=== PATIENT | female | born 1935 | race Caucasian/White ===

== ENCOUNTER → 2019-09-19 10:40 | Outpatient (CLI) | payer MEDICARE, MEDICAID, SELFPAY ==
[2019-09-19 10:56] LABS: Add Manual Diff / Slide Review NO; Basophils Absolute Auto 100 /uL (0-100); Basophils Percent Auto 1.3 % (0-2); Eosinophils Absolute Auto 200 /uL (0-450); Eosinophils Percent Auto 2.9 % (2-4); Hematocrit 38.6 % (36-46); Hemoglobin 12.7 g/dL (12.0-16.0); Lymphocytes Absolute Auto 1400 /uL (1100-4500); Lymphocytes Percent Auto 18.6 % (25-40); Mean Corpuscular Hemoglobin 24.3 PG (26-34); Mean Corpuscular Volume 73.7 fL (80-100); Monocytes Absolute Auto 500 /uL (0-900); Monocytes Percent Auto 6.6 % (3-14); Neutrophils Absolute Auto 5300 /uL (1500-7000); Neutrophils Percent Auto 70.6 % (50-75); Platelet Count 251 X10^3/uL (150-400); Red Blood Cell Count 5.23 X10^6/uL (4.0-5.2); Red Cell Distribution Width 15.6 % (11.6-14.8); White Blood Cell Count 7.6 X10^3/uL (4.5-11.0)
[2019-09-19 11:19] LABS: Alanine Aminotransferase 39 IU/L (<35); Albumin 4.8 g/dL (3.5-5.0); Albumin Globulin Ratio 1.7 (1.0-2.8); Alkaline Phosphatase 89 U/L (38-126); Aspartate Aminotransferase 34 IU/L (14-36); Bilirubin Total 0.3 mg/dL (0.2-1.3); Blood Urea Nitrogen 16 mg/dL (7-17); Calcium 9.8 mg/dL (8.4-10.2); Carbon Dioxide 30 mmol/L (22-32); Chloride 99 mmol/L (98-107); Estimated Glomerular Filt Rate > 60.0 mL/min (>60); Globulin 2.8 g/dL (1.7-4.1); Glucose 105 mg/dL (80-110); HEMOLYSIS < 15 (0-50); Magnesium 1.8 mg/dL (1.6-2.3); Potassium 4.8 mmol/L (3.4-5.1); Sodium 139 mmol/L (137-145); Total Protein 7.6 g/dL (6.3-8.2)
[2019-09-19 11:35] LABS: Free T4, Direct Thyroxine 0.78 ng/dL (0.78-2.19)
[2019-09-19 11:49] LABS: Thyroid Stimulating Hormone 1.38 uIU/mL (0.47-4.68)
== END ==
PROVIDERS: Nurse Practitioner; PCP Physician Assistant; Visit Provider Physician Assistant
DX: R53.83 Other fatigue (principal); Z86.2 Personal history of diseases of the blood and blood-forming organs and certain disorders involving the immune mechanism; Z87.19 Personal history of other diseases of the digestive system; R19.7 Diarrhea, unspecified
CPT/HCPCS: 36415; 80053; 83735; 84439; 84443; 84481; 85025

== ENCOUNTER → 2019-10-17 12:25 | Outpatient (CLI) | payer MEDICARE, MEDICAID, SELFPAY ==
--- NOTE | 2019-10-17 12:27 | DI.US.S_ITS ---
PROCEDURE: US SOFT TISSUE HEAD AND NECK INDICATIONS: EVALUATE MASS RIGHT NECK TECHNIQUE: Real-time scanning was performed of the neck region of interest, with image documentation. COMPARISON: None. FINDINGS: There is a masslike structure replacing the right thyroid lobe measuring up to 3.9 x 4.2 x 6.3 cm, and this may represent diffuse thyroiditis with enlarging the gland or possibly a large thyroid nodule. On the left no nodule is seen in the left gland measures 1.3 x 1.0 x 4.7 cm. IMPRESSION: Large abnormal nodular masslike structure involving the right thyroid lobe measuring up to 3.9 x 4.2 x 6.[address] scanning is recommended for further characterization. Given this abnormality ENT consultation also may be warranted after CT scanning has been performed. Dictated by: Martin Chappell M.D. on 10/17/2019 at 15:29 Approved by: Martin Chappell M.D. on 10/17/2019 at 15:33
== END ==
PROVIDERS: PCP Nurse Practitioner; Referring Provider Nurse Practitioner; Visit Provider Nurse Practitioner
DX: R22.1 Localized swelling, mass and lump, neck (principal); E07.9 Disorder of thyroid, unspecified
CPT/HCPCS: 76536

== ENCOUNTER → 2019-11-06 10:16 | Outpatient (CLI) | payer MEDICARE, MEDICAID, SELFPAY ==
[2019-11-06 10:44] LABS: BUN Creatinine Ratio 20.2 (6-22); Blood Urea Nitrogen 17 mg/dL (7-17); Estimated Glomerular Filt Rate > 60.0 mL/min (>60)
--- NOTE | 2019-11-06 14:09 | DI.CT.S_ITS ---
PROCEDURE: CT SOFT TISSUE NECK W CON INDICATIONS: Abnormal thyroid ultrasound TECHNIQUE: After the administration of intravenous contrast, 3.0 mm axial sections acquired from the sella to the aortic arch. Additional oblique axial 3.0 mm sections acquired through the pharynx. 3 mm thick coronal and sagittal reformats were generated. For radiation dose reduction, the following was used: automated exposure control. COMPARISON: [facility], , US SOFT TISSUE HEAD AND NECK, 10/17/2019, 12:48. FINDINGS: Image quality: Excellent. Lymph nodes: No enlarged lymph nodes seen throughout the neck. Vessels: Visualized vasculature appears patent. Neck spaces: The oropharynx, nasopharynx, and pharynx demonstrate no mucosal lesions. The vocal cords, false vocal cords, pyriform sinuses, epiglottis, vallecula, and tongue base all appear normal. Extramucosal spaces appear unremarkable. Glands: The parotid and submandibular glands appear normal. Thyroid gland is abnormal, with a large right-sided mass that measures up to 4.4 cm oblique AP and 3.6 cm oblique transverse, deviating the trachea significantly leftward, and mildly narrowing the transverse diameter of the trachea as a result. The right thyroid parenchyma medially is effaced, also deviated, by this solitary but very large mass. Its overall craniocaudad dimension is 5.4 cm, and its internal character is heterogeneous with several internal calcifications. Miscellaneous: Visualized brain and orbits appear normal. Lung apices appear clear. Superficial soft tissues appear normal. Bones: No suspicious bony lesions. Visualized sinuses and mastoids appear unremarkable. IMPRESSION: A large mass lesion measuring up to 4.4 x 3.6 x 5.4 cm is present distorting and displacing the right thyroid lobe and deviating the tracheal airway from right to left. Given the tracheal airway mild narrowing and significant tracheal deviation present ENT consultation for excision likely is warranted. 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 Dictated by: Martin Chappell M.D. on 11/06/2019 at 16:28 Approved by: Martin Chappell M.D. on 11/06/2019 at 16:38
== END ==
PROVIDERS: PCP Nurse Practitioner; Referring Provider Nurse Practitioner; Visit Provider Nurse Practitioner
DX: E07.9 Disorder of thyroid, unspecified (principal); J39.8 Other specified diseases of upper respiratory tract; R93.89 Abnormal findings on diagnostic imaging of other specified body structures; Z01.812 Encounter for preprocedural laboratory examination
CPT/HCPCS: 70491; 82565; 84520; Q9967

== ENCOUNTER → 2019-12-13 09:45 | Outpatient (CLI) | payer MEDICARE, MEDICAID, SELFPAY ==
--- NOTE | 2019-12-13 | PATH_ITS ---
Note [facility] Accession Number: [id number] TESTS RESULT FLAG UNITS REF RANGE LAB Clinician Provided Cytology Information No. of containers..01 Other (Miscellaneous) No. of containers..00 Previously Prepared Cytology Slide 01 RIGHT THYROID DIAGNOSIS: 02 RIGHT THYROID NEGATIVE FOR MALIGNANT CELLS. [place] CATEGORY II. SPECIMEN CONSISTS OF BENIGN FOLLICULAR CELLS, HEMOSIDERIN-LADEN MACROPHAGES, COLLOID, AND BLOOD. THIS PATTERN IS CONSISTENT WITH A COLLOID NODULE. Pathologist ICD10: 02 E04.1 01 A LARGE MASS LESION MEASURING UP TO 4.4 X 3.6 X 5.4 CM IS PRESENT DISTORTING AND DISPLACING THE RIGHT THYROID LOBE AND DEVIATING THE TRACHEAL AIRWAY FROM RIGHT TO LEFT. GIVEN THE TRACHEAL AIRWAY MILD NERROWING AND SIGNIFICANT TRACHEAL DEVIATION PRESENT ENT CONSULTATION FOR EXCISION LIKELY IS WARRANTED. 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 02 Mara Beck MD, Pathologist NPI- [id number] 01 Jordan Benz, Top Lift And Automatic Window Repairer ([facility]) 01 30 CC, RED, CLOUDY RECIEVED: IN CYTOLYT WITH 5 ALCOHOL FIXED AND 5 QUICK STAINED SLIDES ALSO 1 RNA VIAL WAS RECEIVED FOR FURTHER TESTING. /RAMÍREZ 12/14/2019 0650 Local FLAG LEGEND: L-Low Normal,H-High Normal,LL-Alert Low,HH-Alert High <-Panic Low,>-Panic High,A-Abnormal,AA-Critical Abnormal Performed at: 01 =[facility] [address] [address] Sherman Garcia MD, 02 [facility] [address] [place] [id number] Mara Beck MD, Performed at: [address] [facility] [address] [place] [address], [place], [place] [id number] MD Sherman Garcia MD Phone: [phone]
--- NOTE | 2019-12-13 09:47 | DI.US.S_ITS ---
PROCEDURE: US FINE NEEDLE ASPIRATION INDICATIONS: RIGHT THYROID MASS TECHNIQUE: The indications, alternatives, benefits, risks, and complications of the procedure were explained to the patient. Written informed consent was obtained and placed in the chart. The thyroid region was examined sonographically and a site was chosen for ultrasound guided percutaneous sampling. The skin was prepared and draped in the usual fashion, and anesthetized with 1% lidocaine infiltrated from the skin down to the thyroid gland. Multiple passes were then performed, with contents emptied into an appropriate pathology specimen container. A bandage was applied to the area of access at completion of the study. COMPARISON: None. FINDINGS: Location(s) of lesion(s) sampled: Right thyroid nodule [place]: 25 gauge hypodermic needles. Number of passes: 6 Medications: 1% lidocaine for local anaesthesia. Complications: None. IMPRESSION: Successful ultrasound-guided thyroid nodule fine needle aspiration, with cytology results pending. Please see chart below for management recommendations based on cytology results. [place] [facility] ReportingRecommendationsNon-diagnostic* Repeat US-guided FNA, with on-site cytology evaluation if possible. * Repeated non-diagnostic nodules without high suspicion US features: close observation vs surgical consult. * Consider surgery if nodule has high suspicion US features, grows >20% in 2 dimensions on followup, or patient has clinical risk factors for malignancy. Benign* If nodule has high suspicion US features: repeat US and FNA within 12 months. * If nodule has low to intermediate suspicion US features: repeat US at 12-24 months. If nodule grows (20% increase in at least 2 dimensions, with minimal increase of 2 mm or >50% change in volume), or development of new suspicious US features, then repeat FNA or continue followup. * If nodule has very low suspicion US features: followup US at >24 months. Atypia of undetermined significance, follicular lesion of undetermined significanceRepeat FNA, molecular testing, followup US, or surgical consult.Follicular neoplasm, suspicious for follicular neoplasmSurgical consult; also consider molecular testing. Suspicious for malignancySurgical consult.MalignantSurgical consult. Dictated by: Stephanie Crowell MD, PhD on 12/13/2019 at 15:48 Approved by: Stephanie Crowell MD, PhD on 12/13/2019 at 15:49
== END ==
PROVIDERS: PCP Nurse Practitioner; Referring Provider Nurse Practitioner; Visit Provider Nurse Practitioner
DX: E04.1 Nontoxic single thyroid nodule (principal)
CPT/HCPCS: 10005

== ENCOUNTER → 2020-01-06 09:03 | Outpatient (CLI) | payer MEDICARE, MEDICAID, SELFPAY ==
[2020-01-07 03:09] LABS: COVID19 Sendout Not Detected (Not Detect)
== END ==
PROVIDERS: PCP Nurse Practitioner; Visit Provider Registered Nurse
DX: Z01.812 Encounter for preprocedural laboratory examination (principal)
CPT/HCPCS: 87635

== ENCOUNTER 2020-01-09 11:42 | Day surgery (SDC) | payer MEDICARE, MEDICAID, SELFPAY ==
[2020-01-03 10:42] VITALS: BMI 25.9
[2020-01-09] VITALS (18 sets, daily range): BP systolic 110–174; BP diastolic 54–91; PULSE 72–98; RESP 12–20; TEMP 35.9–36.6; O2SAT 88–100; BMI 25.9
--- NOTE | 2020-01-09 | PATH_ITS ---
[facility] Accession Number: [id number] . 01 Material submitted: . thyroid gland - RIGHT THYROID LOBE . 02 Diagnosis: Right Thyroid Lobe, Hemithyroidectomy: Multinodular hyperplasia with dominant colloid nodule. One parathyroid gland present. Changes consistent with prior procedure are present. No evidence of neoplasia. [facility] 01/11/2020 1357 Local . 02 Electronically signed: . Mara Beck MD, Pathologist NPI- [id number] . 01 Gross description: . Received in formalin, labeled right thyroid lobe, is a right thyroid lobe (34 grams, 4.4 x 3.7 x 3.3 cm) with fried smooth shiny capsule. The cut surface is diffusely variegated and semitranslucent. A fried-yellow hard, apparently mineralized 1.0 x 0.8 x 0.5 cm nodule is identified inferiorly 0.8 cm from the inferior pole located 2.2 cm from the medial resection margin, 1.5 cm from the anterior and 0.6 cm from the posterior capsular surfaces. No normal thyroid parenchyma is identified. Ink code: black-anterior; blue-posterior; green-medial. Section code: (A1) superior pole, perpendicular corporate sales representative sections; (A2-A7) corporate sales representative serial sections submitted superior to inferior; (A8) inferior pole, corporate sales representative perpendicular sections. ([id number]) /MRV 01/10/2020 1146 Local . 02 Pathologist provided ICD-10: E04.1 . 02 CPT . 554604 Performed at: [address] [place] [address] [address], [place], [place] [id number] MD Sherman Garcia MD Phone: [phone] Performed at: 02 [place] [id number] [place] [id number] MD Mara Beck MD Phone: [phone]
[2020-01-09] MEDS: LACTATED RINGERS 1,000 ML 42 ML IV (12:29)
--- NOTE | 2020-01-09 12:38 | PM.PREOP ---
Pre-operative Note COVID-19 COVID-19 status: Negative Result date/Date tested (Pos, Neg/Pending): 01/06/20 Interval Note History & Physical reviewed/Exam performed by Physician: Yes Changes to H&P: No
[2020-01-09] MEDS: CLINDAMYCIN 900 MG/50 ML PIGGYBACK 50 MG IV (13:41)
--- NOTE | 2020-01-09 13:48 | PM.OP.1 ---
Operative Date/Time/Diagnoses Date of procedure: 01/09/20 Time of procedure: 15:56 Pre-op diagnosis: Right thyroid mass Post-op diagnosis: same Procedure & Clinicians Procedure: Right thyroid lobectomy Same procedure as scheduled: Yes Indications: 84-year-old woman with a right thyroid mass causing tracheal and esophageal compression. She presents for for a right thyroid lobectomy. Surgeon: Akil Fournier Soldering Machine Operator Automatic: Deneen Zafar Anesthesia Type: General Operative Notes Findings: Large right thyroid gland Specimen(s): other (Right thyroid gland) Estimated Blood Loss (mL): 10 Procedure in detail: Patient was brought to the operating room and placed supine on the table. Bilateral lower extremity compression devices were applied. General anesthesia was induced and she was intubated with an endotracheal tube. 900 g of clindamycin were infused prior to skin incision. A shoulder roll was placed to extend the neck. She was prepped and draped in sterile fashion. A time-out was performed to ensure the correct patient procedure necessary equipment within the operating room. A 6 cm collar incision 2 fingerbreadths above the sternal notch was made in the natural skin crease of the neck. The subcutaneous tissue was divided as well as the platysma using electrocautery. Subplatysmal flaps were developed in all directions. The midline raphe between the strap muscles was opened vertically along the direction of its fibers. The right thyroid lobe was very prominent. The superior pole of the thyroid was approached 1st. The superior pole vessels were divided close to the thyroid capsule using the LigaSure. Next the inferior pole was approached and the strap muscles were carefully dissected away from the thyroid. The thyroid was then mobilized medial and anterior and this provided exposure of the recurrent laryngeal nerve running in the tracheoesophageal groove. The nerve was protected out of harm's way. The superior and inferior parathyroid glands were identified and protected. The isthmus was divided using the Ligature. The thyroid lobe was then dissected off of the trachea in its entirety and passed off the field as specimen. The field was copiously irrigated with water and hemostasis was achieved. A Valsalva was provided and there was no evidence of hemorrhage. The right thyroid bed was then dressed with Surgicel. Strap muscles were reapproximated using 3 0 Vicryl and the platysma with 4 0 PDS. The skin was closed with a running 4-0 Monocryl suture followed by the application of Dermabond and Steri-Strips. Patient tolerated the procedure well. She emerged from anesthesia was extubated and transferred to the postoperative care unit in stable condition. Complications: none Post-operative Condition: stable Disposition: Acute Care
[2020-01-09] MEDS: BUPIVACAINE 0.25% (PF) VIAL 30 ML INJ (14:34)
--- NOTE | 2020-01-09 16:03 | SUR.PHASEI ---
Dr. Benz at bedside. Per Dr. Benz request, RT at bedside doing 12 lead ekg.
--- NOTE | 2020-01-09 16:15 | SUR.PHASEI ---
Dr. Fournier and Dr. Benz at bedside. Reviewed results of [address] Benz gave pt 5mg IV Metoprolol and verbal order received from Dr. Fournier for stat Troponin to be drawn. Drawn by TUSHAR [place] in PACU.
[2020-01-09 16:38] LABS: BUN Creatinine Ratio 17.3 (6-22); Blood Urea Nitrogen 14 mg/dL (7-17); Calcium 8.8 mg/dL (8.4-10.2); Carbon Dioxide 27 mmol/L (22-32); Chloride 99 mmol/L (98-107); Estimated Glomerular Filt Rate > 60.0 mL/min (>60); Glucose 142 mg/dL (80-110); HEMOLYSIS < 15 (0-50); Potassium 4.4 mmol/L (3.4-5.1); Sodium 134 mmol/L (137-145)
--- NOTE | 2020-01-09 16:42 | SUR.PHASEI ---
PT IN STABLE CONDITION, VSS. PER DR. WILEY OK FOR PT TO BE TRANSFERRED TO FLOOR AT THIS TIME. REPORT CALLED TO TUSHAR GIBSON. PT BEING TRANSFERRED TO FLOOR NOW.
[2020-01-09 16:49] LABS: Troponin I < 0.012 ng/mL (0.01-0.034)
--- NOTE | 2020-01-09 16:53 | SUR.PHASEI ---
PT TRANSFERRED TO ACUTE CARE FLOOR IN STABLE CONDITION, VSS. PT ALERT AND TALKING TO RN DURING TRANSPORT. BEDSIDE REPORT GIVEN TO CAT, RN AND PT VSS. TRANSFERRED CARE OF PT TO CAT, RN AT THAT TIME.
--- NOTE | 2020-01-09 17:00 | PM.PNPO.1 ---
Subjective Subjective Date Patient Seen: 01/09/20 Time Patient Seen: 16:30 Interval history: 84 y/o female post R thyroid lobectomy was noted to have EKG changes on arrival to PACU. Surgery and anesthesia was unremarkable, with little CV support needed to maintain adequate BP throughout. Pt awoke without issue and was taken to PACU. 12-lead EKG was ordered, and some ST depression was noted in leads 2, aVF, V5, V6. HR was in mid 90's, BP up to 170's systolic. 5mg metoprolol were given IV, face mask O2. Labs were normal (chemistry and troponin). ST changes were noted to improve with the above interventions and pt remained asymptomatic. Case discussed with hospitalist, pt sent to floor with stable VS, meeting PACU discharge criteria. Exam Vital Signs (past 8 hours): - 01/09/20 12:29 01/09/20 15:54 01/09/20 15:59 Temperature 97.6 F 97.0 F L Pulse Rate 72 97 H 98 H Respiratory Rate 18 13 13 Blood Pressure 149/75 H 135/61 149/91 H Pulse Oximetry 99 88 L 100 01/09/20 16:04 01/09/20 16:09 01/09/20 16:14 Temperature Pulse Rate 94 H 91 H 76 Respiratory Rate 15 16 12 Blood Pressure 174/89 H 167/79 H 170/82 H Pulse Oximetry 99 100 100 01/09/20 16:23 01/09/20 16:32 01/09/20 16:37 Temperature 96.7 F L Pulse Rate 76 78 75 Respiratory Rate 13 13 15 Blood Pressure 167/71 H 165/71 H 160/72 H Pulse Oximetry 97 99 97 Oxygen Delivery Method Nasal Cannula Oxygen Flow Rate 2 Objective Labs Result Diagrams: 01/09/20 16:20 Labs: Laboratory Results - last 24 hr 01/09/20 16:20 Sodium 134 L Potassium 4.4 Chloride 99 Carbon Dioxide 27 BUN 14 Creatinine 0.81 Estimated GFR > 60.0 BUN/Creatinine Ratio 17.3 Glucose 142 H Calcium 8.8 Troponin I < 0.012 Assessment & Plan Post-op Postoperative Procedures: Procedures Operation Date: 01/09/20 13:00 Actual Procedures Side Surgeon p Thyroid Lobectomy Right Akil Fournier MD Postoperative status narrative: suspect brief demand ischemia in PACU post thyroid lobectomy. Stable after B-block and O2, normal troponin and chemistry. Postoperative plan narrative: Hospitalist to see, post-op care per surgery.
[2020-01-09] MEDS: LACTATED RINGERS 1,000 ML 100 ML IV (17:22)
--- NOTE | 2020-01-09 19:13 | PC.NURSE ---
Addendum entered by Krista Rose R.N. 01/09/20 22:05: Satisfactory post op course. Denies discomfort when asked. Surgical site remains CDI Call light w/in reach, bed alrm on for pt safety. Continue w/plan of care. Original Note: Pt arrived from PACU, alert/oriented. IVF LR @ 100cc/hr infusing into the LFA HL to LAC intact/patent. Surgical incision anterior neck w/surgi glue Denies any discomfort @ this time. Pt oriented to room & call system, Call light w/in reach, bed alarm on for pt safety.
[2020-01-09] MEDS: ACETAMINOPHEN 325 MG TABLET 650 MG PO (20:26)
[2020-01-09] MEDS: GABAPENTIN 100 MG CAPSULE PO (20:27)
[2020-01-09] MEDS: lisinopriL 10 MG TABLET PO ×2 (20:42→20:45)
[2020-01-09] MEDS: METOPROLOL ER 25 MG TABLET PO ×2 (20:43→20:45)
[2020-01-10] MEDS: LACTATED RINGERS 1,000 ML 100 ML IV (03:47)
[2020-01-10] MEDS: LOPERAMIDE 2 MG CAPSULE PO (03:49)
[2020-01-10 05:00] VITALS: BP 113/61; PULSE 73; RESP 16; TEMP 36.9; O2SAT 93
[2020-01-10] MEDS: PANTOPRAZOLE 40 MG TABLET PO (05:54)
[2020-01-10 07:00] VITALS: BP 121/63; PULSE 75; RESP 18; TEMP 36.6; O2SAT 99
--- NOTE | 2020-01-10 07:59 | P.DS_ITS ---
History of Present Illness History of Present Illness Date Patient Seen: 01/10/20 Time Patient Seen: 07:59 Chief complaint: [id number] *OPB* Narrative: This is an 84-year-old woman who presented with a 5 cm right thyroid mass here for right thyroid lobectomy. Discharge Providers Provider Discharge Date: 01/10/20 Primary care physician: LUCHO Lerma Discharge provider: Akil Fournier MD Summary Hospital Course Discharge Diagnosis: Right thyroid mass S/P right thyroid lobectomy Hospital Course: Patient underwent a right thyroid lobectomy 01/08 for a 5 cm benign mass causing tracheal compression. Operation was unremarkable. In the PACU EKG demonstrated new ST wave depression however no elevation or new arrythymia. She was observerd closely troponin was negative and she had no chest pain. On the date of discharge she is feeling well, speaking and swallowing normally. Exam Vital Signs (past 8 hours): - 01/10/20 05:00 Temperature 98.4 F Pulse Rate 73 Respiratory Rate 16 Blood Pressure 113/61 Pulse Oximetry 93 Oxygen Delivery Method Room Air Oxygen Flow Rate 0 Narrative Exam Narrative: General woman alert oriented no acute distress Neck soft small amount of swelling at the incision there is no hematoma incision clean dry intact. Chest nonlabored respiration Objective Labs Result Diagrams: 01/09/20 16:20 Labs: Laboratory Results - last 24 hr 01/09/20 16:20 Sodium 134 L Potassium 4.4 Chloride 99 Carbon Dioxide 27 BUN 14 Creatinine 0.81 Estimated GFR > 60.0 BUN/Creatinine Ratio 17.3 Glucose 142 H Calcium 8.8 Troponin I < 0.012 Discharge Plan Discharge Plan Patient Disposition: Home Discharge Med Rec/Prescriptions Prescriptions: Continued gabapentin 100 mg capsule 100 mg PO BEDTIME 14 Days Qty: 42 RF: 0 metoprolol succinate 25 mg tablet extended release 24 hr 25 mg PO DAILY RF: 0 lisinopril 10 mg tablet 10 mg PO DAILY RF: 0 dicyclomine 10 mg capsule 10 mg PO DAILY RF: 0 esomeprazole magnesium [Nexium] 40 mg capsule,delayed release(DR/EC) 40 mg PO DAILY RF: 0 (DME) Depends Small Adult Qty: 100 RF: 12 multivitamin Tablet 1 tab PO DAILY RF: 0 acetaminophen 500 mg Tablet 500 mg PO Q6H PRN (Reason: pain) RF: 0 cholecalciferol (vitamin D3) [Vitamin D3] 50 mcg (2,000 unit) Capsule 50 mcg PO DAILY RF: 0 loperamide [Imodium A-D] 2 mg Tablet 2 mg PO Q4H PRN (Reason: Diarrhea) RF: 0 Follow up/Referrals: Bren Mari ARNP [Primary Care Provider] - Akil Fournier MD [Physician] - (Please call Dr. Fournier's office to schedule your follow up appointment.) Discharge Orders: Discharge (Order); Ordered 01/10/20 Ordered By: Akil Fournier Provider Discharge Instructions Diet: Regular Skin/Wound/Dressing Care Skin care: Ok to shower Report to your healthcare provider any signs of infection, such as:: chills, fev er, increased pain and unusual drainage Visit Report/Discharge Packet Instructions: DI for Thyroidectomy, [facility]: Wound Care Stand Alone Forms: Surgery Discharge Discharge Data Primary Care Provider: Bren Mari Attending Provider: Akil Fournier Discharge Interventions Interventions: Discharge assessment Last Done: 01/10/20 07:46 Quality VTE Deep Vein Thrombosis/Pulmonary Embolism Present on Admission: No
--- NOTE | 2020-01-10 08:51 | PC.NURSE ---
Pt is dressed and ready for discharge home with caregiver. IV and Tele have been reviewed. Pt denies pain or difficulty swallowing. Went over d/c instructions with Pt. Discussed d/c meds (unchanged from admit), time of last dose, stroke education, and follow up appointment.
[2020-01-11 06:43] LABS: Calcium 8.5 mg/dL (8.7-10.3); Parathyroid Hormone, Intact 32 pg/mL (15-65)
== END 2020-01-10 08:53 | disposition home or self-care (01) ==
LOC: OR 11:43 → AC 16:55
PROVIDERS: PCP Nurse Practitioner; Referring Provider Surgery; Visit Provider Surgery
PROC: (CPT 60220; principal; 2020-01-09 13:00)
DX: E04.1 Nontoxic single thyroid nodule (principal); I10 Essential (primary) hypertension; K21.9 Gastro-esophageal reflux disease without esophagitis
CPT/HCPCS: 60220; 36415; 80048; 82310; 83970; 84484; 93005; J1100; J2405; J2704; J3010

== ENCOUNTER → 2020-01-23 10:01 | Outpatient (CLI) | payer MEDICARE, MEDICAID, SELFPAY ==
[2020-01-09 16:59] VITALS: BMI 25.9
[2020-01-23 12:06] LABS: TSH w/ Reflex to FT4 5.87 uIU/mL (0.47-4.68)
[2020-01-23 12:53] LABS: Free T4, Direct Thyroxine 0.71 ng/dL (0.78-2.19)
[2020-01-24 08:19] LABS: Calcium 9.1 mg/dL (8.7-10.3); Parathyroid Hormone, Intact 32 pg/mL (15-65)
== END ==
PROVIDERS: PCP Nurse Practitioner; Referring Provider Surgery; Visit Provider Surgery
DX: E07.9 Disorder of thyroid, unspecified (principal); E03.9 Hypothyroidism, unspecified
CPT/HCPCS: 36415; 82310; 83970; 84439; 84443

== ENCOUNTER → 2020-02-06 09:49 | Outpatient (CLI) | payer MEDICARE, MEDICAID, SELFPAY ==
[2020-01-09 16:59] VITALS: BMI 25.9
[2020-02-06 11:26] LABS: Free T4, Direct Thyroxine 0.64 ng/dL (0.78-2.19)
== END ==
PROVIDERS: PCP Nurse Practitioner; Referring Provider Surgery; Visit Provider Surgery
DX: E07.9 Disorder of thyroid, unspecified (principal)
CPT/HCPCS: 36415; 84439; 84443

== ENCOUNTER → 2020-05-08 08:47 | Outpatient (CLI) | payer MEDICARE, MEDICAID, SELFPAY ==
[2020-01-09 16:59] VITALS: BMI 25.9
[2020-05-08 10:42] LABS: Thyroid Stimulating Hormone 3.31 uIU/mL (0.47-4.68)
== END ==
PROVIDERS: PCP Nurse Practitioner; Referring Provider Nurse Practitioner; Visit Provider Nurse Practitioner
DX: E03.9 Hypothyroidism, unspecified (principal); E07.9 Disorder of thyroid, unspecified
CPT/HCPCS: 36415; 84443

== ENCOUNTER 2020-06-27 09:00 | Outpatient (RCR) | payer MEDICARE, MEDICAID, SELFPAY ==
[2020-01-09 16:59] VITALS: BMI 25.9
--- NOTE | 2020-04-02 17:00 | PT.OIE ---
Current Diagnoses Pain in left wrist (04/02/20) Pain in left knee (04/02/20) Low back pain (04/02/20) Other muscle spasm (04/02/20) Pain in left arm (04/02/20) Pain in left hand (04/02/20) Difficulty in walking, not elsewhere classified (04/02/20) Abnormal posture (04/02/20) Past Medical History (Last Updated 02/13/20 @ 11:55 by LUCHO Lerma) Acquired hypothyroidism (Acute) Anemia (Acute) Arthritis (Acute) Back pain (Acute) Carotid artery stenosis (Acute) Cataracts, bilateral (Inactive ~2014) Chicken pox (Resolved) Chronic back pain (Chronic) Colon cancer (Acute) Colorectal cancer (Inactive ~2001) Diverticulitis (Acute) Diverticulosis (Acute) Elevated cholesterol (Acute) Fatigue (Acute) Foot pain (Chronic ~2018) GERD (gastroesophageal reflux disease) (Chronic ~2017) History of tobacco abuse (Acute) Hypertension (Acute) Left wrist pain (Acute) Localized swelling, mass or lump of neck (Inactive) Lower back pain (Acute) Measles (Resolved) Melanocytic nevi of trunk (Acute) Mumps (Resolved) Right hip pain (Acute) Shortness of breath on exertion (Acute) Ulcer, colon (Acute) Vertigo (Inactive ~2011) Past Surgical History (Last Reviewed 02/13/20 @ 11:37 by LUCHO Lerma) Hx of colectomy (Acute) Visit Care Team Role Provider Type LUCHO Lerma Attending Provider Advanced Business Services Intern Primary Care Provider Referring Provider Specialty: [facility] Address: [address] [place] [address], [facility] Email: [email or web address] Physical Therapy Initial Evaluation PT-OP-A Visit Information Start: 04/02/20 13:13 Freq: Status: Active Protocol: Document 04/02/20 13:24 AW (Rec: 04/02/20 14:21 AW [id number]) Out-Patient Physical Therapy Visit Information Visit Information Visit Type Initial Evaluation Visit Start Time 13:30 Visit Stop Time 14:15 Total Visit Minutes 45 Visit Number 1 Evaluation Information Evaluation Date 04/02/20 PT-OP-B Current Condition Start: 04/02/20 13:13 Freq: Status: Active Protocol: Document 04/02/20 13:24 AW (Rec: 04/02/20 14:21 AW [id number]) Current Condition History of Current Condition Onset Date July 2019 Current Complaints left knee pain, low back pain History of Current Condition Vanita began to notice left knee pain after she and her daughter moved from [facility]. They live in an apartment complex where Vanita lives upstairs (18 steps with wide bilateral rails) and her daughter lives downstairs. 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 The daughter has hired caregiver assist ~4 hours daily in the morning. Vanita is now up and down the stairs several times per day and notes increased left medial knee pain as well as low back pain. Going down the stairs is more provocative than going up. Prior to her daughter's stroke, Vanita was walking several miles per day for exercise. She is now deconditioned to the point where she has a hard limit of a couple of blocks due to feeling out of shape and now due to pain in her knee and back. She denies history of falls, stating she has not fallen at all in the past two years. She does report symptoms of positional vertigo but is not currently being treated for that. 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 Prior Treatments and Tests Thyroid lobectomy at . No prior PT for knee or back. I've been so busy taking care of my daughter. Future Testing and Treatments Planned None identified Prior Functional Status Baseline Function- ADL's Independent Baseline Function- Mobility Independent Baseline Function- Gait Pt able to walk longer than a few blocks. 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 Difficulty navigating stairs, especially going down which she must do to care for her daughter. PT-OP-C Subjective Start: 04/02/20 13:13 Freq: Status: Active Protocol: Document 04/02/20 13:24 AW (Rec: 04/02/20 17:43 AW [id number]) OP-PT Subjective Patient Comments Patient Comments I hope I can get back to walking more and have less pain going up and down stairs Patient Questionnaires Lower Extremity Functional Scale LEFS Score 73 LEFS Impairment 1 to 19% Impaired (Score 63-79 ) PT-OP-F Manual Assessment Start: 04/02/20 13:13 Freq: Status: Active Protocol: Document 04/02/20 13:24 AW (Rec: 04/03/20 17:14 AW [id number]) Manual Assessments Soft Tissue Assessment Soft Tissue Mobility Assessment - increased density of upper gluteal region bilaterally Joint Mobility Assessment Joint Mobility Assessment - decreased A/P glides at all lumbar levels PT-OP-G Mobility & Gait Start: 04/02/20 13:13 Freq: Status: Active Protocol: Document 04/02/20 13:24 AW (Rec: 04/03/20 17:14 AW [id number]) OP Mobility Evaluation Bed Mobility Rolling IND Supine to and from Sit IND Transfers Sit to Stand IND Bed to Chair Transfers IND Functional Movements Squats pt is able to perform half squat with valgus knee posture OP Gait Assessment Gait Gait Assistance Required: Independent Distance (Feet) 200 Assistive Devices Assistive Device None Gait Deviations General Gait Pattern Decreased Feet Clearance, Flexed Trunk,Narrow Based Gait Comments Gait Comments Pt walks with increased pronation right foot and right hip externally rotated greater than left PT-OP-H Neuro Start: 04/02/20 13:13 Freq: Status: Active Protocol: Document 04/02/20 13:24 AW (Rec: 04/03/20 17:14 AW [id number]) Sensation Evaluation Gross Sensation Gross Sensation WNL Deep Tendon Reflex & Clonus Assessment Deep Tendon Reflex Bilateral Achilles Deep Tendon Reflex 1+ Diminished Bilateral Patellar Deep Tendon Reflex 1+ Diminished PT-OP-K Range of Motion Start: 04/02/20 13:13 Freq: Status: Active Protocol: Document 04/02/20 13:24 AW (Rec: 04/03/20 17:14 AW [id number]) Lumbar Spine Range of Motion Lumbar Spine Active Degrees Comments WNL all planes Hip Goniometric Range of Motion Hip Left Active Hip ROM WFL No Hip ROM Limitations Comments AROM WNL all planes with exception of limited IR. PROM and overpressure all normal with limitation of IR. Knee Goniometric Range of Motion Knee ROM Limitations Comments WNL PT-OP-L Special Tests Start: 04/02/20 13:13 Freq: Status: Active Protocol: Document 04/02/20 13:24 AW (Rec: 04/06/20 16:59 AW [id number]) Special Tests Hip Special Tests Trendelenberg Test Results positive bilaterally Scour Test Test Results negative bilaterally Knee Special Tests ligaments Test Results stable A/P and medial/lateral PT-OP-M Strength Start: 04/02/20 13:13 Freq: Status: Active Protocol: Document 04/02/20 13:24 AW (Rec: 04/03/20 17:14 AW [id number]) Hip Strength Hip Manual Muscle Testing Left Flexion (L2) 4+ Good+ Extension (S1) 4 Good Abduction 4 Good Adduction 4 Good External Rotation 4 Good Internal Rotation 4- Good- Comments Strength equal on left and right Knee Strength Knee Manual Muscle Testing Left Flexion (S2) 4 Good Extension (L3) 4 Good Comments Strength equal on left and right Ankle/Foot Strength Ankle and Foot Manual Muscle Testing Left Dorsiflexion (L4) 4 Good Plantarflexion (S1) 4- Good- Inversion 4 Good Eversion (S1) 4 Good Comments Equal bilaterally PT-OP-T Assessment and Plan Start: 04/02/20 13:13 Freq: Status: Active Protocol: Document 04/02/20 13:24 AW (Rec: 04/06/20 16:59 AW [id number]) Physical Therapy Assessment Rehab Potential Rehabilitation Potential Good Evaluation Complexity Number of Personal Factors/Comorbidities 1-2 Number of Body Systems Impaired 1-2 Clinical Presentation at Evaluation Stable Impairments Impairments Activity Tolerance,Balance, Functional Activities, Functional Mobility,Gait,Pain, Posture,Soft Tissue Mobility, Strength Goals Four Impairment stairs Mcc Goal (LTG) Pt will descend stairs with step over step patterning and use of unilateral hand rail without increase in pain to improve her ability to care for her daughter. LTG Duration 05/12/20 Three Impairment Pt unable to walk more than a few blocks Short Term Goal (STG) Pt will walk 1/4 mile with 1- point increase in pain or less STG Duration 04/30/20 Mcc Goal (LTG) Pt will walk 1 mile with 1- point increase in pain or less LTG Duration 05/12/20 Two Impairment Pt is unable to cross her legs comfortably Client Manager Goal (LTG) Pt will be able to cross her legs in order to don lower body garments without increase in pain LTG Duration 05/12/20 One Impairment Pt has no HEP Short Term Goal (STG) Pt will be indepednent with HEP for support of therapy services provided in clinic. STG Duration 04/30/20 Client Manager Goal (LTG) Pt will be independent with maintenance HEP for sustained gains. LTG Duration 05/12/20 Assessment Summary Assessment Vanita is an 84 yo woman who presents to outpatient PT with complaints of left knee and low back pain. Pt has limited activity tolerance due to these complaints which is interfering with her ability to enjoy walking for leisure and to go up and down stairs to care for her daughter who lives one floor below her. Her left knee is stable to stress testing. Her primary impairments are bilateral lower extremity strength and general deconditioning. Vanita will benefit from skilled PT to address these impairments and to improve her ability to participate in her daily activities. Physical Therapy Plan Frequency and Duration Frequency of Treatment 1-2x/week Duration of Treatment 10 weeks Plan of Care Start Date 04/02/20 Plan of Care End Date 05/12/20 Therapeutic Interventions Therapeutic Interventions Balance Training,Gait Training ,Home Exercise Program,Joint Mobilizations,Manual Therapy, Neuromuscular Re-education, Patient/Caregiver Education, Self-Care/Home Management,Soft Tissue Mobilization, Therapeutic Activities, Therapeutic Exercises Modalities Cold Pack/Ice Massage,Hot Packs Next Visit Focus/Plan Next Note Type Treatment Note Next Visit Plan initiate STM for lumbar paraspinals and gluteals; initiate ther ex for BLE strength
--- NOTE | 2020-04-02 17:01 | PT.OPPOC ---
Physical, Occupational & Speech Therapy At [facility] Current Diagnoses Pain in left wrist (04/02/20) Pain in left knee (04/02/20) Low back pain (04/02/20) Other muscle spasm (04/02/20) Pain in left arm (04/02/20) Pain in left hand (04/02/20) Difficulty in walking, not elsewhere classified (04/02/20) Abnormal posture (04/02/20) Visit Care Team Role Provider Type LUCHO Lerma Attending Provider Advanced Store Group Manager Primary Care Provider Referring Provider Specialty: [facility] Practice Address: [address] [place] [address], [facility] Email: [email or web address] Plan Of Care PT-OP-T Assessment and Plan Start: 04/02/20 13:13 Freq: Status: Active Protocol: Document 04/02/20 13:24 AW (Rec: 04/06/20 16:59 AW [id number]) Physical Therapy Assessment Rehab Potential Rehabilitation Potential Good Evaluation Complexity Number of Personal Factors/Comorbidities 1-2 Number of Body Systems Impaired 1-2 Clinical Presentation at Evaluation Stable Impairments Impairments Activity Tolerance,Balance, Functional Activities, Functional Mobility,Gait,Pain, Posture,Soft Tissue Mobility, Strength Goals Four Impairment stairs Geriatrician Goal (LTG) Pt will descend stairs with step over step patterning and use of unilateral hand rail without increase in pain to improve her ability to care for her daughter. LTG Duration 05/12/20 Three Impairment Pt unable to walk more than a few blocks Short Term Goal (STG) Pt will walk 1/4 mile with 1- point increase in pain or less STG Duration 04/30/20 Geriatrician Goal (LTG) Pt will walk 1 mile with 1- point increase in pain or less LTG Duration 05/12/20 Two Impairment Pt is unable to cross her legs comfortably Usp Goal (LTG) Pt will be able to cross her legs in order to don lower body garments without increase in pain LTG Duration 05/12/20 One Impairment Pt has no HEP Short Term Goal (STG) Pt will be indepednent with HEP for support of therapy services provided in clinic. STG Duration 04/30/20 Usp Goal (LTG) Pt will be independent with maintenance HEP for sustained gains. LTG Duration 05/12/20 Assessment Summary Assessment Vanita is an 84 yo woman who presents to outpatient PT with complaints of left knee and low back pain. Pt has limited activity tolerance due to these complaints which is interfering with her ability to enjoy walking for leisure and to go up and down stairs to care for her daughter who lives one floor below her. Her left knee is stable to stress testing. Her primary impairments are bilateral lower extremity strength and general deconditioning. Vanita will benefit from skilled PT to address these impairments and to improve her ability to participate in her daily activities. Physical Therapy Plan Frequency and Duration Frequency of Treatment 1-2x/week Duration of Treatment 10 weeks Plan of Care Start Date 04/02/20 Plan of Care End Date 05/12/20 Therapeutic Interventions Therapeutic Interventions Balance Training,Gait Training ,Home Exercise Program,Joint Mobilizations,Manual Therapy, Neuromuscular Re-education, Patient/Caregiver Education, Self-Care/Home Management,Soft Tissue Mobilization, Therapeutic Activities, Therapeutic Exercises Modalities Cold Pack/Ice Massage,Hot Packs Next Visit Focus/Plan Next Note Type Treatment Note Next Visit Plan initiate STM for lumbar paraspinals and gluteals; initiate ther ex for BLE strength Plan of Care Dates Plan of Care Start Date 04/02/20 Plan of Care End Date 05/12/20 Electronically Signed by: Cassandra Ibrahim, PT 04/06/20 [id number] Please Sign and Return: I have reviewed this Plan of Care and certify that the skilled therapy services above are required to meet the patient?s needs. Physician Signature Date Printed Name and Credentials Clinical Instructor Signature Printed Name and Credentials
--- NOTE | 2020-04-09 15:59 | PT.OTN ---
Current Diagnoses Pain in left wrist (04/09/20) Pain in left knee (04/09/20) Low back pain (04/09/20) Other muscle spasm (04/09/20) Pain in left arm (04/09/20) Pain in left hand (04/09/20) Difficulty in walking, not elsewhere classified (04/09/20) Abnormal posture (04/09/20) Physical Therapy Treatment Note PT-OP-A Visit Information Start: 04/02/20 13:13 Freq: Status: Active Protocol: Document 04/09/20 13:25 AW (Rec: 04/09/20 15:59 AW [id number]) Out-Patient Physical Therapy Visit Information Visit Information Visit Type Treatment Note Visit Start Time 13:30 Visit Stop Time 14:15 Total Visit Minutes 45 Visit Number 2 PT-OP-B Current Condition Start: 04/02/20 13:13 Freq: Status: Active Protocol: Document 04/02/20 13:24 AW (Rec: 04/02/20 14:21 AW [id number]) Current Condition History of Current Condition Onset Date July 2019 Current Complaints left knee pain, low back pain History of Current Condition Vanita began to notice left knee pain after she and her daughter moved from [facility]. They live in an apartment complex where Vanita lives upstairs (18 steps with wide bilateral rails) and her daughter lives downstairs. 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 The daughter has hired caregiver assist ~4 hours daily in the morning. Vanita is now up and down the stairs several times per day and notes increased left medial knee pain as well as low back pain. Going down the stairs is more provocative than going up. Prior to her daughter's stroke, Vanita was walking several miles per day for exercise. She is now deconditioned to the point where she has a hard limit of a couple of blocks due to feeling out of shape and now due to pain in her knee and back. She denies history of falls, stating she has not fallen at all in the past two years. She does report symptoms of positional vertigo but is not currently being treated for that. 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 Prior Treatments and Tests Thyroid lobectomy at . No prior PT for knee or back. I've been so busy taking care of my daughter. Future Testing and Treatments Planned None identified Prior Functional Status Baseline Function- ADL's Independent Baseline Function- Mobility Independent Baseline Function- Gait Pt able to walk longer than a few blocks. 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 Difficulty navigating stairs, especially going down which she must do to care for her daughter. PT-OP-C Subjective Start: 04/02/20 13:13 Freq: Status: Active Protocol: Document 04/09/20 13:25 AW (Rec: 04/09/20 15:59 AW [id number]) OP-PT Subjective Patient Comments Patient Comments I'm tired but I've been tired for a long time. PT-OP-F Manual Assessment Start: 04/02/20 13:13 Freq: Status: Active Protocol: Document 04/02/20 13:24 AW (Rec: 04/03/20 17:14 AW [id number]) Manual Assessments Soft Tissue Assessment Soft Tissue Mobility Assessment - increased density of upper gluteal region bilaterally Joint Mobility Assessment Joint Mobility Assessment - decreased A/P glides at all lumbar levels PT-OP-G Mobility & Gait Start: 04/02/20 13:13 Freq: Status: Active Protocol: Document 04/02/20 13:24 AW (Rec: 04/03/20 17:14 AW [id number]) OP Mobility Evaluation Bed Mobility Rolling IND Supine to and from Sit IND Transfers Sit to Stand IND Bed to Chair Transfers IND Functional Movements Squats pt is able to perform half squat with valgus knee posture OP Gait Assessment Gait Gait Assistance Required: Independent Distance (Feet) 200 Assistive Devices Assistive Device None Gait Deviations General Gait Pattern Decreased Feet Clearance, Flexed Trunk,Narrow Based Gait Comments Gait Comments Pt walks with increased pronation right foot and right hip externally rotated greater than left PT-OP-H Neuro Start: 04/02/20 13:13 Freq: Status: Active Protocol: Document 04/02/20 13:24 AW (Rec: 04/03/20 17:14 AW [id number]) Sensation Evaluation Gross Sensation Gross Sensation WNL Deep Tendon Reflex & Clonus Assessment Deep Tendon Reflex Bilateral Achilles Deep Tendon Reflex 1+ Diminished Bilateral Patellar Deep Tendon Reflex 1+ Diminished PT-OP-K Range of Motion Start: 04/02/20 13:13 Freq: Status: Active Protocol: Document 04/02/20 13:24 AW (Rec: 04/03/20 17:14 AW [id number]) Lumbar Spine Range of Motion Lumbar Spine Active Degrees Comments WNL all planes Hip Goniometric Range of Motion Hip Left Active Hip ROM WFL No Hip ROM Limitations Comments AROM WNL all planes with exception of limited IR. PROM and overpressure all normal with limitation of IR. Knee Goniometric Range of Motion Knee ROM Limitations Comments WNL PT-OP-L Special Tests Start: 04/02/20 13:13 Freq: Status: Active Protocol: Document 04/02/20 13:24 AW (Rec: 04/06/20 16:59 AW [email or web address]) Special Tests Hip Special Tests Trendelenberg Test Results positive bilaterally Scour Test Test Results negative bilaterally Knee Special Tests ligaments Test Results stable A/P and medial/lateral PT-OP-M Strength Start: 04/02/20 13:13 Freq: Status: Active Protocol: Document 04/02/20 13:24 AW (Rec: 04/03/20 17:14 AW [id number]) Hip Strength Hip Manual Muscle Testing Left Flexion (L2) 4+ Good+ Extension (S1) 4 Good Abduction 4 Good Adduction 4 Good External Rotation 4 Good Internal Rotation 4- Good- Comments Strength equal on left and right Knee Strength Knee Manual Muscle Testing Left Flexion (S2) 4 Good Extension (L3) 4 Good Comments Strength equal on left and right Ankle/Foot Strength Ankle and Foot Manual Muscle Testing Left Dorsiflexion (L4) 4 Good Plantarflexion (S1) 4- Good- Inversion 4 Good Eversion (S1) 4 Good Comments Equal bilaterally PT-OP-Q Treatments Start: 04/02/20 13:13 Freq: Status: Active Protocol: Document 04/09/20 13:25 AW (Rec: 04/09/20 15:59 AW [id number]) Cardio Equipment Recumbent Elliptical ([employer]) Duration (Minutes) 5 Resistance 2 Seat Position 5 Other started at resistance 3 but backed off due to response Therapeutic Exercises Supine Exercises IR stretch Supine Exercise Name IR stretch Side bilateral Resistance manual Reps/Minutes 2 minutes Comments with hip in 90 deg flexion piriformis stretch Supine Exercise Name piriformis stretch Side bilateral Reps/Minutes 15 sec hold x 2 Comments pt assisted to place ankle on opposite knee SKTC Supine Exercise Name SKTC Side bilateral Reps/Minutes 15 sec hold x 2 Comments pt has difficulty pulling knee due to hand arthritis & limited hip ext ROM modified Latrell stretch Supine Exercise Name modified Latrell stretch Side bilateral Reps/Minutes 4 minutes Comments with active knee flexion, ankle pumps/circles hip adduction Supine Exercise Name supine adduction Equipment Used purple ball Reps/Minutes 8 reps x 2 Comments 5 sec hold bridge Supine Exercise Name bridge Reps/Minutes 8 reps x 2 Comments pt c/o lying supine with pressure on coccyx but finds bridge relieving Sidelying Exercises reverse clamshell Sidelying Exercise Name reverse clamshell Side bilateral Reps/Minutes 10 reps clamshell Sidelying Exercise Name clamshell Side bilateral Reps/Minutes 10 reps Comments tactile cues to avoid hip rolling backward Manual Therapy Treatment Soft Tissue Mobilization 2 Body Location vastus lateralis (bilat) Mobilization Type Myofascial Release,Rolling Intensity/Depth Moderate Body Position Hooklying Comments Pt with increased density of lateral quads possibly contributing to knee pain 1 Body Location lumbar paraspinals, glutes Mobilization Type Myofascial Release,Rolling, Strumming Intensity/Depth Moderate Body Position Sidelying Comments Pt able to tolerate SL position Joint Mobilizations patellar glides Joint patellar Direction medial and superior Grade III Body Position Supine Reps/Duration 3 minutes Comments restricted glides medially and superiorly, improved after mobs PT-OP-T Assessment and Plan Start: 04/02/20 13:13 Freq: Status: Active Protocol: Document 04/09/20 13:25 AW (Rec: 04/09/20 15:59 AW [id number]) Physical Therapy Assessment Goals Four Impairment stairs Skein Dyer Goal (LTG) Pt will descend stairs with step over step patterning and use of unilateral hand rail without increase in pain to improve her ability to care for her daughter. LTG Duration 05/12/20 Three Impairment Pt unable to walk more than a few blocks Short Term Goal (STG) Pt will walk 1/4 mile with 1- point increase in pain or less STG Duration 04/30/20 [facility] Goal (LTG) Pt will walk 1 mile with 1- point increase in pain or less LTG Duration 05/12/20 Two Impairment Pt is unable to cross her legs comfortably Skein Dyer Goal (LTG) Pt will be able to cross her legs in order to don lower body garments without increase in pain LTG Duration 05/12/20 One Impairment Pt has no HEP Short Term Goal (STG) Pt will be indepednent with HEP for support of therapy services provided in clinic. STG Duration 04/30/20 Skein Dyer Goal (LTG) Pt will be independent with maintenance HEP for sustained gains. LTG Duration 05/12/20 Assessment Summary Assessment Treatment today focused on hip mobility as pt tolerated. She has limited tolerance for supine position. She required assist to get into stretching positions but tolerated ther ex well. Will continue with hip mobility, STM for lumbar paraspinals, glutes, and lateral quads and will progress BLE strengthening. Physical Therapy Plan Frequency and Duration Frequency of Treatment 1-2x/week Duration of Treatment 10 weeks Plan of Care Start Date 04/02/20 Plan of Care End Date 05/12/20 Therapeutic Interventions Therapeutic Interventions Balance Training,Gait Training ,Home Exercise Program,Joint Mobilizations,Manual Therapy, Neuromuscular Re-education, Patient/Caregiver Education, Self-Care/Home Management,Soft Tissue Mobilization, Therapeutic Activities, Therapeutic Exercises Modalities Cold Pack/Ice Massage,Hot Packs Next Visit Focus/Plan Next Note Type Treatment Note Next Visit Plan assess response to HEP ( clamshell, reverse clamshell, bridge); progress hip mobility and BLE strengthening
--- NOTE | 2020-04-23 17:07 | PT.OTN ---
Current Diagnoses Pain in left wrist (04/23/20) Pain in left knee (04/23/20) Low back pain (04/23/20) Other muscle spasm (04/23/20) Pain in left arm (04/23/20) Pain in left hand (04/23/20) Difficulty in walking, not elsewhere classified (04/23/20) Abnormal posture (04/23/20) Physical Therapy Treatment Note PT-OP-A Visit Information Start: 04/02/20 13:13 Freq: Status: Active Protocol: Document 04/23/20 16:49 AW (Rec: 04/23/20 17:07 AW [email or web address]) Out-Patient Physical Therapy Visit Information Visit Information Visit Type Treatment Note Visit Start Time 16:00 Visit Stop Time 16:45 Total Visit Minutes 45 Visit Number 3 Evaluation Information Evaluation Date 04/02/20 PT-OP-B Current Condition Start: 04/02/20 13:13 Freq: Status: Active Protocol: Document 04/02/20 13:24 AW (Rec: 04/02/20 14:21 AW [id number]) Current Condition History of Current Condition Onset Date July 2019 Current Complaints left knee pain, low back pain History of Current Condition Vanita began to notice left knee pain after she and her daughter moved from [facility]. They live in an apartment complex where Vanita lives upstairs (18 steps with wide bilateral rails) and her daughter lives downstairs. 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 The daughter has hired caregiver assist ~4 hours daily in the morning. Vanita is now up and down the stairs several times per day and notes increased left medial knee pain as well as low back pain. Going down the stairs is more provocative than going up. Prior to her daughter's stroke, Vanita was walking several miles per day for exercise. She is now deconditioned to the point where she has a hard limit of a couple of blocks due to feeling out of shape and now due to pain in her knee and back. She denies history of falls, stating she has not fallen at all in the past two years. She does report symptoms of positional vertigo but is not currently being treated for that. 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 Prior Treatments and Tests Thyroid lobectomy at . No prior PT for knee or back. I've been so busy taking care of my daughter. Future Testing and Treatments Planned None identified Prior Functional Status Baseline Function- ADL's Independent Baseline Function- Mobility Independent Baseline Function- Gait Pt able to walk longer than a few blocks. 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 Difficulty navigating stairs, especially going down which she must do to care for her daughter. PT-OP-C Subjective Start: 04/02/20 13:13 Freq: Status: Active Protocol: Document 04/23/20 16:49 AW (Rec: 04/23/20 17:07 AW [email or web address]) OP-PT Subjective Patient Comments Patient Comments Later appointments are hard for me. I'm so so tired. PT-OP-F Manual Assessment Start: 04/02/20 13:13 Freq: Status: Active Protocol: Document 04/02/20 13:24 AW (Rec: 04/03/20 17:14 AW [id number]) Manual Assessments Soft Tissue Assessment Soft Tissue Mobility Assessment - increased density of upper gluteal region bilaterally Joint Mobility Assessment Joint Mobility Assessment - decreased A/P glides at all lumbar levels PT-OP-G Mobility & Gait Start: 04/02/20 13:13 Freq: Status: Active Protocol: Document 04/02/20 13:24 AW (Rec: 04/03/20 17:14 AW [id number]) OP Mobility Evaluation Bed Mobility Rolling IND Supine to and from Sit IND Transfers Sit to Stand IND Bed to Chair Transfers IND Functional Movements Squats pt is able to perform half squat with valgus knee posture OP Gait Assessment Gait Gait Assistance Required: Independent Distance (Feet) 200 Assistive Devices Assistive Device None Gait Deviations General Gait Pattern Decreased Feet Clearance, Flexed Trunk,Narrow Based Gait Comments Gait Comments Pt walks with increased pronation right foot and right hip externally rotated greater than left PT-OP-H Neuro Start: 04/02/20 13:13 Freq: Status: Active Protocol: Document 04/02/20 13:24 AW (Rec: 04/03/20 17:14 AW [id number]) Sensation Evaluation Gross Sensation Gross Sensation WNL Deep Tendon Reflex & Clonus Assessment Deep Tendon Reflex Bilateral Achilles Deep Tendon Reflex 1+ Diminished Bilateral Patellar Deep Tendon Reflex 1+ Diminished PT-OP-K Range of Motion Start: 04/02/20 13:13 Freq: Status: Active Protocol: Document 04/02/20 13:24 AW (Rec: 04/03/20 17:14 AW [id number]) Lumbar Spine Range of Motion Lumbar Spine Active Degrees Comments WNL all planes Hip Goniometric Range of Motion Hip Left Active Hip ROM WFL No Hip ROM Limitations Comments AROM WNL all planes with exception of limited IR. PROM and overpressure all normal with limitation of IR. Knee Goniometric Range of Motion Knee ROM Limitations Comments WNL PT-OP-L Special Tests Start: 04/02/20 13:13 Freq: Status: Active Protocol: Document 04/02/20 13:24 AW (Rec: 04/06/20 16:59 AW [email or web address]) Special Tests Hip Special Tests Trendelenberg Test Results positive bilaterally Scour Test Test Results negative bilaterally Knee Special Tests ligaments Test Results stable A/P and medial/lateral PT-OP-M Strength Start: 04/02/20 13:13 Freq: Status: Active Protocol: Document 04/02/20 13:24 AW (Rec: 04/03/20 17:14 AW [id number]) Hip Strength Hip Manual Muscle Testing Left Flexion (L2) 4+ Good+ Extension (S1) 4 Good Abduction 4 Good Adduction 4 Good External Rotation 4 Good Internal Rotation 4- Good- Comments Strength equal on left and right Knee Strength Knee Manual Muscle Testing Left Flexion (S2) 4 Good Extension (L3) 4 Good Comments Strength equal on left and right Ankle/Foot Strength Ankle and Foot Manual Muscle Testing Left Dorsiflexion (L4) 4 Good Plantarflexion (S1) 4- Good- Inversion 4 Good Eversion (S1) 4 Good Comments Equal bilaterally PT-OP-Q Treatments Start: 04/02/20 13:13 Freq: Status: Active Protocol: Document 04/23/20 16:49 AW (Rec: 04/23/20 17:07 AW [email or web address]) Cardio Equipment Recumbent Elliptical ([employer]) Duration (Minutes) 5 Resistance 2 Seat Position 5 Other started at resistance 3 but backed off due to response Therapeutic Exercises Sidelying Exercises SL IT band stretch Sidelying Exercise Name SL IT band stretch Side bilateral Reps/Minutes 4 min Comments cues for neutral pelvis Sitting Exercises HS stretch Sitting Exercise Name HS stretch Side bilateral Reps/Minutes 4 min Comments with adduction for increased stretch seated piriformis stretch Sitting Exercise Name seated piriformis stretch Side bilateral Reps/Minutes 4 min Comments cues to pull up toward opposite shoulder figure 4 stretch Sitting Exercise Name figure 4 stretch Side bilateral Reps/Minutes 4 min Comments cues to push down on knee SKTC Sitting Exercise Name SKTC Side bilateral Reps/Minutes 4 min Comments with adduction for increased stretch Therapeutic Activity Therapeutic Activity diaphragmatic breathing Name diaphragmatic breathing Reps/Minutes 5 min Comments In SL with hands on chest and abdomen. Cues to focus on filling abdomen and quieting the chest movement. Manual Therapy Treatment Soft Tissue Mobilization 2 Body Location IT band Mobilization Type Myofascial Release,Rolling Intensity/Depth Moderate Body Position Hooklying Comments Rolling pin with superficial to moderate pressure combined with SL IT band stretch PT-OP-T Assessment and Plan Start: 04/02/20 13:13 Freq: Status: Active Protocol: Document 04/23/20 16:49 AW (Rec: 04/23/20 17:07 AW [id number]) Physical Therapy Assessment Impairments Impairments Activity Tolerance,Balance, Functional Activities, Functional Mobility,Gait,Pain, Posture,Soft Tissue Mobility, Strength Goals Four Impairment stairs [employer] Goal (LTG) Pt will descend stairs with step over step patterning and use of unilateral hand rail without increase in pain to improve her ability to care for her daughter. LTG Duration 06/11/20 Three Impairment Pt unable to walk more than a few blocks Short Term Goal (STG) Pt will walk 1/4 mile with 1- point increase in pain or less STG Duration 04/30/20 Residential Goal (LTG) Pt will walk 1 mile with 1- point increase in pain or less LTG Duration 06/11/20 Two Impairment Pt is unable to cross her legs comfortably Residential Goal (LTG) Pt will be able to cross her legs in order to don lower body garments without increase in pain LTG Duration 06/11/20 One Impairment Pt has no HEP Short Term Goal (STG) Pt will be indepednent with HEP for support of therapy services provided in clinic. STG Duration 04/30/20 Residential Goal (LTG) Pt will be independent with maintenance HEP for sustained gains. LTG Duration 06/11/20 Assessment Summary Assessment Treatment focused on hip mobility in sitting as pt does not tolerate supine well due to increased pressure on her coccyx. Pt agreed most effective stretches included adduction. Bilateral IT bands are dense and tight which is likely contributing to knee pain. Pt states her sleep hygiene is good. She gets to bed at a regular time and gets up at a regular time. She does not lie in bed if she can 't fall asleep, instead getting up to engage in activities that make her sleepy. However, her sleep remains erratic. Spent time today introducing diaphragmatic breathing for physiological quieting with pt responding positively. Today, noticed plan of care dates do not line up with 10- week projection. Changed all goals from 05/12/20 to 06/11/20 Physical Therapy Plan Frequency and Duration Frequency of Treatment 1-2x/week Duration of Treatment 10 weeks Plan of Care Start Date 04/02/20 Plan of Care End Date 06/11/20 Therapeutic Interventions Therapeutic Interventions Balance Training,Gait Training ,Home Exercise Program,Joint Mobilizations,Manual Therapy, Neuromuscular Re-education, Patient/Caregiver Education, Self-Care/Home Management,Soft Tissue Mobilization, Therapeutic Activities, Therapeutic Exercises Modalities Cold Pack/Ice Massage,Hot Packs Next Visit Focus/Plan Next Note Type Treatment Note Next Visit Plan assess response to seated stretches and phys quieting; progress hip mobility and BLE strengthening
--- NOTE | 2020-04-30 12:45 | PT.OTN ---
Current Diagnoses Pain in left wrist (04/30/20) Pain in left knee (04/30/20) Low back pain (04/30/20) Other muscle spasm (04/30/20) Pain in left arm (04/30/20) Pain in left hand (04/30/20) Difficulty in walking, not elsewhere classified (04/30/20) Abnormal posture (04/30/20) Physical Therapy Treatment Note PT-OP-A Visit Information Start: 04/02/20 13:13 Freq: Status: Active Protocol: Document 04/30/20 12:36 AW (Rec: 04/30/20 12:45 AW [id number]) Out-Patient Physical Therapy Visit Information Visit Information Visit Type Treatment Note Visit Start Time 10:31 Visit Stop Time 11:14 Total Visit Minutes 43 Visit Number 4 Evaluation Information Evaluation Date 04/02/20 PT-OP-B Current Condition Start: 04/02/20 13:13 Freq: Status: Active Protocol: Document 04/02/20 13:24 AW (Rec: 04/02/20 14:21 AW [id number]) Current Condition History of Current Condition Onset Date July 2019 Current Complaints left knee pain, low back pain History of Current Condition Vanita began to notice left knee pain after she and her daughter moved from [facility]. They live in an apartment complex where Vanita lives upstairs (18 steps with wide bilateral rails) and her daughter lives downstairs. 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 The daughter has hired caregiver assist ~4 hours daily in the morning. Vanita is now up and down the stairs several times per day and notes increased left medial knee pain as well as low back pain. Going down the stairs is more provocative than going up. Prior to her daughter's stroke, Vanita was walking several miles per day for exercise. She is now deconditioned to the point where she has a hard limit of a couple of blocks due to feeling out of shape and now due to pain in her knee and back. She denies history of falls, stating she has not fallen at all in the past two years. She does report symptoms of positional vertigo but is not currently being treated for that. 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 Prior Treatments and Tests Thyroid lobectomy at . No prior PT for knee or back. I've been so busy taking care of my daughter. Future Testing and Treatments Planned None identified Prior Functional Status Baseline Function- ADL's Independent Baseline Function- Mobility Independent Baseline Function- Gait Pt able to walk longer than a few blocks. 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 Difficulty navigating stairs, especially going down which she must do to care for her daughter. PT-OP-C Subjective Start: 04/02/20 13:13 Freq: Status: Active Protocol: Document 04/30/20 12:36 AW (Rec: 04/30/20 12:45 AW [email or web address]) OP-PT Subjective Patient Comments Patient Comments I slept well for a few nights but didn't get to sleep until 0330 last night. Patient Reported Progress Improving PT-OP-F Manual Assessment Start: 04/02/20 13:13 Freq: Status: Active Protocol: Document 04/02/20 13:24 AW (Rec: 04/03/20 17:14 AW [id number]) Manual Assessments Soft Tissue Assessment Soft Tissue Mobility Assessment - increased density of upper gluteal region bilaterally Joint Mobility Assessment Joint Mobility Assessment - decreased A/P glides at all lumbar levels PT-OP-G Mobility & Gait Start: 04/02/20 13:13 Freq: Status: Active Protocol: Document 04/02/20 13:24 AW (Rec: 04/03/20 17:14 AW [id number]) OP Mobility Evaluation Bed Mobility Rolling IND Supine to and from Sit IND Transfers Sit to Stand IND Bed to Chair Transfers IND Functional Movements Squats pt is able to perform half squat with valgus knee posture OP Gait Assessment Gait Gait Assistance Required: Independent Distance (Feet) 200 Assistive Devices Assistive Device None Gait Deviations General Gait Pattern Decreased Feet Clearance, Flexed Trunk,Narrow Based Gait Comments Gait Comments Pt walks with increased pronation right foot and right hip externally rotated greater than left PT-OP-H Neuro Start: 04/02/20 13:13 Freq: Status: Active Protocol: Document 04/02/20 13:24 AW (Rec: 04/03/20 17:14 AW [id number]) Sensation Evaluation Gross Sensation Gross Sensation WNL Deep Tendon Reflex & Clonus Assessment Deep Tendon Reflex Bilateral Achilles Deep Tendon Reflex 1+ Diminished Bilateral Patellar Deep Tendon Reflex 1+ Diminished PT-OP-K Range of Motion Start: 04/02/20 13:13 Freq: Status: Active Protocol: Document 04/02/20 13:24 AW (Rec: 04/03/20 17:14 AW [id number]) Lumbar Spine Range of Motion Lumbar Spine Active Degrees Comments WNL all planes Hip Goniometric Range of Motion Hip Left Active Hip ROM WFL No Hip ROM Limitations Comments AROM WNL all planes with exception of limited IR. PROM and overpressure all normal with limitation of IR. Knee Goniometric Range of Motion Knee ROM Limitations Comments WNL PT-OP-L Special Tests Start: 04/02/20 13:13 Freq: Status: Active Protocol: Document 04/02/20 13:24 AW (Rec: 04/06/20 16:59 AW [email or web address]) Special Tests Hip Special Tests Trendelenberg Test Results positive bilaterally Scour Test Test Results negative bilaterally Knee Special Tests ligaments Test Results stable A/P and medial/lateral PT-OP-M Strength Start: 04/02/20 13:13 Freq: Status: Active Protocol: Document 04/02/20 13:24 AW (Rec: 04/03/20 17:14 AW [id number]) Hip Strength Hip Manual Muscle Testing Left Flexion (L2) 4+ Good+ Extension (S1) 4 Good Abduction 4 Good Adduction 4 Good External Rotation 4 Good Internal Rotation 4- Good- Comments Strength equal on left and right Knee Strength Knee Manual Muscle Testing Left Flexion (S2) 4 Good Extension (L3) 4 Good Comments Strength equal on left and right Ankle/Foot Strength Ankle and Foot Manual Muscle Testing Left Dorsiflexion (L4) 4 Good Plantarflexion (S1) 4- Good- Inversion 4 Good Eversion (S1) 4 Good Comments Equal bilaterally PT-OP-Q Treatments Start: 04/02/20 13:13 Freq: Status: Active Protocol: Document 04/30/20 12:36 AW (Rec: 04/30/20 12:45 AW [email or web address]) Cardio Equipment Recumbent Elliptical ([employer] Duration (Minutes) 6 Resistance 2 Seat Position 5 Therapeutic Exercises Supine Exercises IT band stretch Supine Exercise Name IT band stretch Side bilateral Reps/Minutes 4 min Comments tolerated ok due to pressure relief on coccyx Sidelying Exercises SL IT band stretch Sidelying Exercise Name SL IT band stretch - top leg off table Side bilateral Reps/Minutes 4 min Comments cues for neutral pelvis reverse clamshell Sidelying Exercise Name reverse clamshell Side bilateral Reps/Minutes 10 reps clamshell Sidelying Exercise Name clamshell Side bilateral Reps/Minutes 10 reps Comments tactile cues to avoid hip rolling backward Sitting Exercises sit to stand Sitting Exercise Name sit to stand Reps/Minutes 10 reps Comments cued forward lean, glut facilitation seated piriformis stretch Sitting Exercise Name seated piriformis stretch Side bilateral Reps/Minutes 4 min Comments cues to pull up toward opposite shoulder figure 4 stretch Sitting Exercise Name figure 4 stretch Side bilateral Reps/Minutes 4 min Comments cues to push down on knee Standing Exercises heel raises Standing Exercise Name heel raises Side bilateral Equipment Used 6 step with rails for balance Reps/Minutes 10 reps x 2 Comments cued deep heel drop for PF stretch IT band stretch Standing Exercise Name IT band stretch Side bilateral Reps/Minutes 30 sec x 4 Comments bending away from adducted leg Manual Therapy Treatment Soft Tissue Mobilization 2 Body Location IT band Mobilization Type Myofascial Release,Rolling Intensity/Depth Moderate Body Position Hooklying Comments Rolling pin with superficial to moderate pressure combined with SL IT band stretch Joint Mobilizations patellar glides Joint patellar Direction medial and superior Grade III Body Position Supine Reps/Duration 3 minutes Comments restricted glides medially and superiorly, improved after mobs PT-OP-T Assessment and Plan Start: 04/02/20 13:13 Freq: Status: Active Protocol: Document 04/30/20 12:36 AW (Rec: 04/30/20 12:45 AW [email or web address]) Physical Therapy Assessment Impairments Impairments Activity Tolerance,Balance, Functional Activities, Functional Mobility,Gait,Pain, Posture,Soft Tissue Mobility, Strength Goals Four Impairment stairs Piano Case [employer] Bench Assembler Goal (LTG) Pt will descend stairs with step over step patterning and use of unilateral hand rail without increase in pain to improve her ability to care for her daughter. LTG Duration 06/11/20 Three Impairment Pt unable to walk more than a few blocks Short Term Goal (STG) Pt will walk 1/4 mile with 1- point increase in pain or less STG Duration 04/30/20 [facility] Goal (LTG) Pt will walk 1 mile with 1- point increase in pain or less LTG Duration 06/11/20 Two Impairment Pt is unable to cross her legs comfortably [facility] Goal (LTG) Pt will be able to cross her legs in order to don lower body garments without increase in pain LTG Duration 06/11/20 One Impairment Pt has no HEP Short Term Goal (STG) Pt will be indepednent with HEP for support of therapy services provided in clinic. STG Duration 04/30/20 [employer] Goal (LTG) Pt will be independent with maintenance HEP for sustained gains. LTG Duration 06/11/20 Assessment Summary Assessment Pt is more easily able to cross her legs at this session , demonstrating improved hip flexibility. She is tolerating ther ex for hip mobility. Plan to progress hip strengthening next treatment. Physical Therapy Plan Frequency and Duration Frequency of Treatment 1-2x/week Duration of Treatment 10 weeks Plan of Care Start Date 04/02/20 Plan of Care End Date 06/11/20 Therapeutic Interventions Therapeutic Interventions Balance Training,Gait Training ,Home Exercise Program,Joint Mobilizations,Manual Therapy, Neuromuscular Re-education, Patient/Caregiver Education, Self-Care/Home Management,Soft Tissue Mobilization, Therapeutic Activities, Therapeutic Exercises Modalities Cold Pack/Ice Massage,Hot Packs Next Visit Focus/Plan Next Note Type Treatment Note Next Visit Plan assess response to seated stretches and phys quieting; progress hip mobility and BLE strengthening
--- NOTE | 2020-05-14 12:47 | PT.OTN ---
Current Diagnoses Pain in left wrist (05/14/20) Pain in left knee (05/14/20) Low back pain (05/14/20) Other muscle spasm (05/14/20) Pain in left arm (05/14/20) Pain in left hand (05/14/20) Difficulty in walking, not elsewhere classified (05/14/20) Abnormal posture (05/14/20) Physical Therapy Treatment Note PT-OP-A Visit Information Start: 04/02/20 13:13 Freq: Status: Active Protocol: Document 05/14/20 12:00 DCW (Rec: 05/14/20 12:47 DCW [id number]) Out-Patient Physical Therapy Visit Information Visit Information Visit Start Time 12:00 Visit Stop Time 12:45 Total Visit Minutes 45 Visit Number 5 Evaluation Information Evaluation Date 04/02/20 PT-OP-B Current Condition Start: 04/02/20 13:13 Freq: Status: Active Protocol: Document 04/02/20 13:24 AW (Rec: 04/02/20 14:21 AW [id number]) Current Condition History of Current Condition Onset Date July 2019 Current Complaints left knee pain, low back pain History of Current Condition Vanita began to notice left knee pain after she and her daughter moved from [facility]. They live in an apartment complex where Vanita lives upstairs (18 steps with wide bilateral rails) and her daughter lives downstairs. 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 The daughter has hired caregiver assist ~4 hours daily in the morning. Vanita is now up and down the stairs several times per day and notes increased left medial knee pain as well as low back pain. Going down the stairs is more provocative than going up. Prior to her daughter's stroke, Vanita was walking several miles per day for exercise. She is now deconditioned to the point where she has a hard limit of a couple of blocks due to feeling out of shape and now due to pain in her knee and back. She denies history of falls, stating she has not fallen at all in the past two years. She does report symptoms of positional vertigo but is not currently being treated for that. 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 Prior Treatments and Tests Thyroid lobectomy at . No prior PT for knee or back. I've been so busy taking care of my daughter. Future Testing and Treatments Planned None identified Prior Functional Status Baseline Function- ADL's Independent Baseline Function- Mobility Independent Baseline Function- Gait Pt able to walk longer than a few blocks. 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 Difficulty navigating stairs, especially going down which she must do to care for her daughter. PT-OP-C Subjective Start: 04/02/20 13:13 Freq: Status: Active Protocol: Document 05/14/20 12:00 DCW (Rec: 05/14/20 12:47 DCW [id number]) OP-PT Subjective Patient Comments Patient Comments I'm just tired. I'm a morning person, so this noon appointment is just not good for me. PT-OP-F Manual Assessment Start: 04/02/20 13:13 Freq: Status: Active Protocol: Document 04/02/20 13:24 AW (Rec: 04/03/20 17:14 AW [id number]) Manual Assessments Soft Tissue Assessment Soft Tissue Mobility Assessment - increased density of upper gluteal region bilaterally Joint Mobility Assessment Joint Mobility Assessment - decreased A/P glides at all lumbar levels PT-OP-G Mobility & Gait Start: 04/02/20 13:13 Freq: Status: Active Protocol: Document 04/02/20 13:24 AW (Rec: 04/03/20 17:14 AW [id number]) OP Mobility Evaluation Bed Mobility Rolling IND Supine to and from Sit IND Transfers Sit to Stand IND Bed to Chair Transfers IND Functional Movements Squats pt is able to perform half squat with valgus knee posture OP Gait Assessment Gait Gait Assistance Required: Independent Distance (Feet) 200 Assistive Devices Assistive Device None Gait Deviations General Gait Pattern Decreased Feet Clearance, Flexed Trunk,Narrow Based Gait Comments Gait Comments Pt walks with increased pronation right foot and right hip externally rotated greater than left PT-OP-H Neuro Start: 04/02/20 13:13 Freq: Status: Active Protocol: Document 04/02/20 13:24 AW (Rec: 04/03/20 17:14 AW [id number]) Sensation Evaluation Gross Sensation Gross Sensation WNL Deep Tendon Reflex & Clonus Assessment Deep Tendon Reflex Bilateral Achilles Deep Tendon Reflex 1+ Diminished Bilateral Patellar Deep Tendon Reflex 1+ Diminished PT-OP-K Range of Motion Start: 04/02/20 13:13 Freq: Status: Active Protocol: Document 04/02/20 13:24 AW (Rec: 04/03/20 17:14 AW [id number]) Lumbar Spine Range of Motion Lumbar Spine Active Degrees Comments WNL all planes Hip Goniometric Range of Motion Hip Left Active Hip ROM WFL No Hip ROM Limitations Comments AROM WNL all planes with exception of limited IR. PROM and overpressure all normal with limitation of IR. Knee Goniometric Range of Motion Knee ROM Limitations Comments WNL PT-OP-L Special Tests Start: 04/02/20 13:13 Freq: Status: Active Protocol: Document 04/02/20 13:24 AW (Rec: 04/06/20 16:59 AW [email or web address]) Special Tests Hip Special Tests Trendelenberg Test Results positive bilaterally Scour Test Test Results negative bilaterally Knee Special Tests ligaments Test Results stable A/P and medial/lateral PT-OP-M Strength Start: 04/02/20 13:13 Freq: Status: Active Protocol: Document 04/02/20 13:24 AW (Rec: 04/03/20 17:14 AW [id number]) Hip Strength Hip Manual Muscle Testing Left Flexion (L2) 4+ Good+ Extension (S1) 4 Good Abduction 4 Good Adduction 4 Good External Rotation 4 Good Internal Rotation 4- Good- Comments Strength equal on left and right Knee Strength Knee Manual Muscle Testing Left Flexion (S2) 4 Good Extension (L3) 4 Good Comments Strength equal on left and right Ankle/Foot Strength Ankle and Foot Manual Muscle Testing Left Dorsiflexion (L4) 4 Good Plantarflexion (S1) 4- Good- Inversion 4 Good Eversion (S1) 4 Good Comments Equal bilaterally PT-OP-Q Treatments Start: 04/02/20 13:13 Freq: Status: Active Protocol: Document 05/14/20 12:00 DCW (Rec: 05/14/20 12:47 DCW [id number]) Cardio Equipment Recumbent Elliptical ([employer]) Duration (Minutes) 6 Resistance 2 Seat Position 5 Therapeutic Exercises Supine Exercises hamstring stretch Supine Exercise Name hamstring stretch Side bilateral IT band stretch Supine Exercise Name IT band stretch Side bilateral Reps/Minutes 4 min Comments tolerated ok due to pressure relief on coccyx piriformis stretch Supine Exercise Name piriformis stretch Side bilateral Reps/Minutes 15 sec hold x 2 Comments pt assisted to place ankle on opposite knee Sidelying Exercises SL IT band stretch Sidelying Exercise Name SL IT band stretch - top leg off table Side bilateral Reps/Minutes 4 min Comments cues for neutral pelvis reverse clamshell Sidelying Exercise Name reverse clamshell Side bilateral Reps/Minutes 10 reps clamshell Sidelying Exercise Name clamshell Side bilateral Reps/Minutes 10 reps Comments tactile cues to avoid hip rolling backward Manual Therapy Treatment Soft Tissue Mobilization 2 Body Location IT band Mobilization Type Myofascial Release,Rolling Intensity/Depth Moderate Body Position Hooklying Comments Rolling pin with superficial to moderate pressure combined with SL IT band stretch Joint Mobilizations patellar glides Joint patellar Direction medial and superior Grade III Body Position Supine Reps/Duration 3 minutes Comments restricted glides medially and superiorly, improved after mobs PT-OP-T Assessment and Plan Start: 04/02/20 13:13 Freq: Status: Active Protocol: Document 05/14/20 12:00 DCW (Rec: 05/14/20 12:47 DCW [id number]) Physical Therapy Assessment Impairments Impairments Activity Tolerance,Balance, Functional Activities, Functional Mobility,Gait,Pain, Posture,Soft Tissue Mobility, Strength Goals Four Impairment stairs Nursing Home Goal (LTG) Pt will descend stairs with step over step patterning and use of unilateral hand rail without increase in pain to improve her ability to care for her daughter. LTG Duration 06/11/20 Three Impairment Pt unable to walk more than a few blocks Short Term Goal (STG) Pt will walk 1/4 mile with 1- point increase in pain or less STG Duration 04/30/20 [employer] Goal (LTG) Pt will walk 1 mile with 1- point increase in pain or less LTG Duration 06/11/20 Two Impairment Pt is unable to cross her legs comfortably Nursing Home Goal (LTG) Pt will be able to cross her legs in order to don lower body garments without increase in pain LTG Duration 06/11/20 One Impairment Pt has no HEP Short Term Goal (STG) Pt will be indepednent with HEP for support of therapy services provided in clinic. STG Duration 04/30/20 [employer] Machine Fe[employer] Goal (LTG) Pt will be independent with maintenance HEP for sustained gains. LTG Duration 06/11/20 Assessment Summary Assessment Pt admitting to some improvements overall, but mainly just reports constant fatigue and weakness limiting her mobility and activity levels. Physical Therapy Plan Frequency and Duration Frequency of Treatment 1-2x/week Duration of Treatment 10 weeks Plan of Care Start Date 04/02/20 Plan of Care End Date 06/11/20 Therapeutic Interventions Therapeutic Interventions Balance Training,Gait Training ,Home Exercise Program,Joint Mobilizations,Manual Therapy, Neuromuscular Re-education, Patient/Caregiver Education, Self-Care/Home Management,Soft Tissue Mobilization, Therapeutic Activities, Therapeutic Exercises Modalities Cold Pack/Ice Massage,Hot Packs Next Visit Focus/Plan Next Note Type Treatment Note Next Visit Plan assess response to seated stretches and phys quieting; progress hip mobility and BLE strengthening
--- NOTE | 2020-05-21 11:03 | PT.OTN ---
Current Diagnoses Pain in left wrist (05/21/20) Pain in left knee (05/21/20) Low back pain (05/21/20) Other muscle spasm (05/21/20) Pain in left arm (05/21/20) Pain in left hand (05/21/20) Difficulty in walking, not elsewhere classified (05/21/20) Abnormal posture (05/21/20) Physical Therapy Treatment Note PT-OP-A Visit Information Start: 04/02/20 13:13 Freq: Status: Active Protocol: Document 05/21/20 11:03 AW (Rec: 05/21/20 11:16 AW [email or web address]) Out-Patient Physical Therapy Visit Information Visit Information Visit Type Treatment Note Visit Start Time 09:48 Visit Stop Time 10:30 Total Visit Minutes 42 Visit Number 6 Evaluation Information Evaluation Date 04/02/20 PT-OP-B Current Condition Start: 04/02/20 13:13 Freq: Status: Active Protocol: Document 04/02/20 13:24 AW (Rec: 04/02/20 14:21 AW [id number]) Current Condition History of Current Condition Onset Date July 2019 Current Complaints left knee pain, low back pain History of Current Condition Vanita began to notice left knee pain after she and her daughter moved from [facility]. They live in an apartment complex where Vanita lives upstairs (18 steps with wide bilateral rails) and her daughter lives downstairs. 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 The daughter has hired caregiver assist ~4 hours daily in the morning. Vanita is now up and down the stairs several times per day and notes increased left medial knee pain as well as low back pain. Going down the stairs is more provocative than going up. Prior to her daughter's stroke, Vanita was walking several miles per day for exercise. She is now deconditioned to the point where she has a hard limit of a couple of blocks due to feeling out of shape and now due to pain in her knee and back. She denies history of falls, stating she has not fallen at all in the past two years. She does report symptoms of positional vertigo but is not currently being treated for that. 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 Prior Treatments and Tests Thyroid lobectomy at . No prior PT for knee or back. I've been so busy taking care of my daughter. Future Testing and Treatments Planned None identified Prior Functional Status Baseline Function- ADL's Independent Baseline Function- Mobility Independent Baseline Function- Gait Pt able to walk longer than a few blocks. 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 Difficulty navigating stairs, especially going down which she must do to care for her daughter. PT-OP-C Subjective Start: 04/02/20 13:13 Freq: Status: Active Protocol: Document 05/21/20 11:03 AW (Rec: 05/21/20 11:16 AW [email or web address]) OP-PT Subjective Patient Comments Patient Comments I only slept two hours last night so forgive me if I fall asleep. PT-OP-F Manual Assessment Start: 04/02/20 13:13 Freq: Status: Active Protocol: Document 04/02/20 13:24 AW (Rec: 04/03/20 17:14 AW [id number]) Manual Assessments Soft Tissue Assessment Soft Tissue Mobility Assessment - increased density of upper gluteal region bilaterally Joint Mobility Assessment Joint Mobility Assessment - decreased A/P glides at all lumbar levels PT-OP-G Mobility & Gait Start: 04/02/20 13:13 Freq: Status: Active Protocol: Document 04/02/20 13:24 AW (Rec: 04/03/20 17:14 AW [id number]) OP Mobility Evaluation Bed Mobility Rolling IND Supine to and from Sit IND Transfers Sit to Stand IND Bed to Chair Transfers IND Functional Movements Squats pt is able to perform half squat with valgus knee posture OP Gait Assessment Gait Gait Assistance Required: Independent Distance (Feet) 200 Assistive Devices Assistive Device None Gait Deviations General Gait Pattern Decreased Feet Clearance, Flexed Trunk,Narrow Based Gait Comments Gait Comments Pt walks with increased pronation right foot and right hip externally rotated greater than left PT-OP-H Neuro Start: 04/02/20 13:13 Freq: Status: Active Protocol: Document 04/02/20 13:24 AW (Rec: 04/03/20 17:14 AW [id number]) Sensation Evaluation Gross Sensation Gross Sensation WNL Deep Tendon Reflex & Clonus Assessment Deep Tendon Reflex Bilateral Achilles Deep Tendon Reflex 1+ Diminished Bilateral Patellar Deep Tendon Reflex 1+ Diminished PT-OP-K Range of Motion Start: 04/02/20 13:13 Freq: Status: Active Protocol: Document 04/02/20 13:24 AW (Rec: 04/03/20 17:14 AW [id number]) Lumbar Spine Range of Motion Lumbar Spine Active Degrees Comments WNL all planes Hip Goniometric Range of Motion Hip Left Active Hip ROM WFL No Hip ROM Limitations Comments AROM WNL all planes with exception of limited IR. PROM and overpressure all normal with limitation of IR. Knee Goniometric Range of Motion Knee ROM Limitations Comments WNL PT-OP-L Special Tests Start: 04/02/20 13:13 Freq: Status: Active Protocol: Document 04/02/20 13:24 AW (Rec: 04/06/20 16:59 AW [email or web address]) Special Tests Hip Special Tests Trendelenberg Test Results positive bilaterally Scour Test Test Results negative bilaterally Knee Special Tests ligaments Test Results stable A/P and medial/lateral PT-OP-M Strength Start: 04/02/20 13:13 Freq: Status: Active Protocol: Document 04/02/20 13:24 AW (Rec: 04/03/20 17:14 AW [id number]) Hip Strength Hip Manual Muscle Testing Left Flexion (L2) 4+ Good+ Extension (S1) 4 Good Abduction 4 Good Adduction 4 Good External Rotation 4 Good Internal Rotation 4- Good- Comments Strength equal on left and right Knee Strength Knee Manual Muscle Testing Left Flexion (S2) 4 Good Extension (L3) 4 Good Comments Strength equal on left and right Ankle/Foot Strength Ankle and Foot Manual Muscle Testing Left Dorsiflexion (L4) 4 Good Plantarflexion (S1) 4- Good- Inversion 4 Good Eversion (S1) 4 Good Comments Equal bilaterally PT-OP-Q Treatments Start: 04/02/20 13:13 Freq: Status: Active Protocol: Document 05/21/20 11:03 AW (Rec: 05/21/20 11:16 AW [email or web address]) Cardio Equipment Recumbent Elliptical ([employer] Duration (Minutes) 6 Resistance 1 Seat Position 5 Therapeutic Exercises Sidelying Exercises SL IT band stretch Sidelying Exercise Name SL IT band stretch - top leg off table Side bilateral Reps/Minutes 4 min Comments cues for neutral pelvis reverse clamshell Sidelying Exercise Name reverse clamshell Side bilateral Resistance level 1 Equipment Used TB Reps/Minutes 10 reps clamshell Sidelying Exercise Name clamshell Side bilateral Resistance level 1 Equipment Used TB Reps/Minutes 10 reps Comments tactile cues to avoid hip rolling backward Sitting Exercises sit to stand Sitting Exercise Name sit to stand Reps/Minutes 10 reps Comments cued forward lean, glut facilitation Standing Exercises resisted side stepping Standing Exercise Name resisted side stepping Side bilateral Resistance yellow loop Reps/Minutes 15 foot lap x 2 Comments cues for stance leg glute facilitation to improve foot clearance resisted hip extension Standing Exercise Name resisted hip extension Side bilateral Resistance yellow loop Reps/Minutes 6 reps x 2 Comments cues for posture 6MWT Standing Exercise Name 6MWT Equipment Used SBA Reps/Minutes 6 min Comments 1125 feet Manual Therapy Treatment Soft Tissue Mobilization 2 Body Location IT band Mobilization Type Myofascial Release,Rolling Intensity/Depth Moderate Body Position Hooklying Comments Rolling pin with superficial to moderate pressure combined with SL IT band stretch PT-OP-T Assessment and Plan Start: 04/02/20 13:13 Freq: Status: Active Protocol: Document 05/21/20 11:03 AW (Rec: 05/21/20 11:16 AW [email or web address]) Physical Therapy Assessment Impairments Impairments Activity Tolerance,Balance, Functional Activities, Functional Mobility,Gait,Pain, Posture,Soft Tissue Mobility, Strength Goals Five Impairment endurance Nuclear Weapons Custodian Goal (LTG) Pt will increase distance in 6MWT from 1125 feet to 1286 feet to demonstrate improved cardiovascular efficiency LTG Duration 06/11/20 Four Impairment stairs Penitentiary Goal (LTG) Pt will descend stairs with step over step patterning and use of unilateral hand rail without increase in pain to improve her ability to care for her daughter. LTG Duration 06/11/20 Three Impairment Pt unable to walk more than a few blocks Short Term Goal (STG) Pt will walk 1/4 mile with 1- point increase in pain or less 05/21/20 - Partially met - pt walked 0.2 miles in 6MWT without increased pain STG Duration 04/30/20 Penitentiary Goal (LTG) Pt will walk 1 mile with 1- point increase in pain or less LTG Duration 06/11/20 Two Impairment Pt is unable to cross her legs comfortably Nuclear Weapons Custodian Goal (LTG) Pt will be able to cross her legs in order to don lower body garments without increase in pain LTG Duration 06/11/20 One Impairment Pt has no HEP Short Term Goal (STG) Pt will be indepednent with HEP for support of therapy services provided in clinic. 05/07/20 - MET STG Duration 04/30/20 Nuclear Weapons Custodian Goal (LTG) Pt will be independent with maintenance HEP for sustained gains. LTG Duration 06/11/20 Assessment Summary Assessment Pt continues to be limited by sleep deprivation in spite of good sleep hygiene. Treatement today focused on hip strengthening with pt tolerating increase in resistance well without pain complaint. Pt walked 1125 feet in 6MWT. Set new goal for 1286 feet for parity with age and gender-matched peers ( Anant et al, 2002). Physical Therapy Plan Frequency and Duration Frequency of Treatment 1-2x/week Duration of Treatment 10 weeks Plan of Care Start Date 04/02/20 Plan of Care End Date 06/11/20 Therapeutic Interventions Therapeutic Interventions Balance Training,Gait Training ,Home Exercise Program,Joint Mobilizations,Manual Therapy, Neuromuscular Re-education, Patient/Caregiver Education, Self-Care/Home Management,Soft Tissue Mobilization, Therapeutic Activities, Therapeutic Exercises Modalities Cold Pack/Ice Massage,Hot Packs Next Visit Focus/Plan Next Note Type Treatment Note Next Visit Plan progress phys quieting; progress hip mobility and BLE strengthening; intiate stair training
--- NOTE | 2020-05-21 11:16 | PT.OTN ---
Current Diagnoses Pain in left wrist (05/21/20) Pain in left knee (05/21/20) Low back pain (05/21/20) Other muscle spasm (05/21/20) Pain in left arm (05/21/20) Pain in left hand (05/21/20) Difficulty in walking, not elsewhere classified (05/21/20) Abnormal posture (05/21/20) Physical Therapy Treatment Note PT-OP-A Visit Information Start: 04/02/20 13:13 Freq: Status: Active Protocol: Document 05/21/20 11:03 AW (Rec: 05/21/20 11:16 AW [email or web address]) Out-Patient Physical Therapy Visit Information Visit Information Visit Type Treatment Note Visit Start Time 09:48 Visit Stop Time 10:30 Total Visit Minutes 42 Visit Number 6 Evaluation Information Evaluation Date 04/02/20 PT-OP-B Current Condition Start: 04/02/20 13:13 Freq: Status: Active Protocol: Document 04/02/20 13:24 AW (Rec: 04/02/20 14:21 AW [id number]) Current Condition History of Current Condition Onset Date July 2019 Current Complaints left knee pain, low back pain History of Current Condition Vanita began to notice left knee pain after she and her daughter moved from [facility]. They live in an apartment complex where Vanita lives upstairs (18 steps with wide bilateral rails) and her daughter lives downstairs. 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 The daughter has hired caregiver assist ~4 hours daily in the morning. Vanita is now up and down the stairs several times per day and notes increased left medial knee pain as well as low back pain. Going down the stairs is more provocative than going up. Prior to her daughter's stroke, Vanita was walking several miles per day for exercise. She is now deconditioned to the point where she has a hard limit of a couple of blocks due to feeling out of shape and now due to pain in her knee and back. She denies history of falls, stating she has not fallen at all in the past two years. She does report symptoms of positional vertigo but is not currently being treated for that. 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 Prior Treatments and Tests Thyroid lobectomy at . No prior PT for knee or back. I've been so busy taking care of my daughter. Future Testing and Treatments Planned None identified Prior Functional Status Baseline Function- ADL's Independent Baseline Function- Mobility Independent Baseline Function- Gait Pt able to walk longer than a few blocks. 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 Difficulty navigating stairs, especially going down which she must do to care for her daughter. PT-OP-C Subjective Start: 04/02/20 13:13 Freq: Status: Active Protocol: Document 05/21/20 11:03 AW (Rec: 05/21/20 11:16 AW [email or web address]) OP-PT Subjective Patient Comments Patient Comments I only slept two hours last night so forgive me if I fall asleep. PT-OP-F Manual Assessment Start: 04/02/20 13:13 Freq: Status: Active Protocol: Document 04/02/20 13:24 AW (Rec: 04/03/20 17:14 AW [id number]) Manual Assessments Soft Tissue Assessment Soft Tissue Mobility Assessment - increased density of upper gluteal region bilaterally Joint Mobility Assessment Joint Mobility Assessment - decreased A/P glides at all lumbar levels PT-OP-G Mobility & Gait Start: 04/02/20 13:13 Freq: Status: Active Protocol: Document 04/02/20 13:24 AW (Rec: 04/03/20 17:14 AW [id number]) OP Mobility Evaluation Bed Mobility Rolling IND Supine to and from Sit IND Transfers Sit to Stand IND Bed to Chair Transfers IND Functional Movements Squats pt is able to perform half squat with valgus knee posture OP Gait Assessment Gait Gait Assistance Required: Independent Distance (Feet) 200 Assistive Devices Assistive Device None Gait Deviations General Gait Pattern Decreased Feet Clearance, Flexed Trunk,Narrow Based Gait Comments Gait Comments Pt walks with increased pronation right foot and right hip externally rotated greater than left PT-OP-H Neuro Start: 04/02/20 13:13 Freq: Status: Active Protocol: Document 04/02/20 13:24 AW (Rec: 04/03/20 17:14 AW [id number]) Sensation Evaluation Gross Sensation Gross Sensation WNL Deep Tendon Reflex & Clonus Assessment Deep Tendon Reflex Bilateral Achilles Deep Tendon Reflex 1+ Diminished Bilateral Patellar Deep Tendon Reflex 1+ Diminished PT-OP-K Range of Motion Start: 04/02/20 13:13 Freq: Status: Active Protocol: Document 04/02/20 13:24 AW (Rec: 04/03/20 17:14 AW [id number]) Lumbar Spine Range of Motion Lumbar Spine Active Degrees Comments WNL all planes Hip Goniometric Range of Motion Hip Left Active Hip ROM WFL No Hip ROM Limitations Comments AROM WNL all planes with exception of limited IR. PROM and overpressure all normal with limitation of IR. Knee Goniometric Range of Motion Knee ROM Limitations Comments WNL PT-OP-L Special Tests Start: 04/02/20 13:13 Freq: Status: Active Protocol: Document 04/02/20 13:24 AW (Rec: 04/06/20 16:59 AW [email or web address]) Special Tests Hip Special Tests Trendelenberg Test Results positive bilaterally Scour Test Test Results negative bilaterally Knee Special Tests ligaments Test Results stable A/P and medial/lateral PT-OP-M Strength Start: 04/02/20 13:13 Freq: Status: Active Protocol: Document 04/02/20 13:24 AW (Rec: 04/03/20 17:14 AW [id number]) Hip Strength Hip Manual Muscle Testing Left Flexion (L2) 4+ Good+ Extension (S1) 4 Good Abduction 4 Good Adduction 4 Good External Rotation 4 Good Internal Rotation 4- Good- Comments Strength equal on left and right Knee Strength Knee Manual Muscle Testing Left Flexion (S2) 4 Good Extension (L3) 4 Good Comments Strength equal on left and right Ankle/Foot Strength Ankle and Foot Manual Muscle Testing Left Dorsiflexion (L4) 4 Good Plantarflexion (S1) 4- Good- Inversion 4 Good Eversion (S1) 4 Good Comments Equal bilaterally PT-OP-Q Treatments Start: 04/02/20 13:13 Freq: Status: Active Protocol: Document 05/21/20 11:03 AW (Rec: 05/21/20 11:16 AW [email or web address]) Cardio Equipment Recumbent Elliptical ([employer]) Duration (Minutes) 6 Resistance 1 Seat Position 5 Therapeutic Exercises Sidelying Exercises SL IT band stretch Sidelying Exercise Name SL IT band stretch - top leg off table Side bilateral Reps/Minutes 4 min Comments cues for neutral pelvis reverse clamshell Sidelying Exercise Name reverse clamshell Side bilateral Resistance level 1 Equipment Used TB Reps/Minutes 10 reps clamshell Sidelying Exercise Name clamshell Side bilateral Resistance level 1 Equipment Used TB Reps/Minutes 10 reps Comments tactile cues to avoid hip rolling backward Sitting Exercises sit to stand Sitting Exercise Name sit to stand Reps/Minutes 10 reps Comments cued forward lean, glut facilitation Standing Exercises resisted side stepping Standing Exercise Name resisted side stepping Side bilateral Resistance yellow loop Reps/Minutes 15 foot lap x 2 Comments cues for stance leg glute facilitation to improve foot clearance resisted hip extension Standing Exercise Name resisted hip extension Side bilateral Resistance yellow loop Reps/Minutes 6 reps x 2 Comments cues for posture 6MWT Standing Exercise Name 6MWT Equipment Used SBA Reps/Minutes 6 min Comments 1125 feet Manual Therapy Treatment Soft Tissue Mobilization 2 Body Location IT band Mobilization Type Myofascial Release,Rolling Intensity/Depth Moderate Body Position Hooklying Comments Rolling pin with superficial to moderate pressure combined with SL IT band stretch PT-OP-T Assessment and Plan Start: 04/02/20 13:13 Freq: Status: Active Protocol: Document 05/21/20 11:03 AW (Rec: 05/21/20 11:16 AW [email or web address]) Physical Therapy Assessment Impairments Impairments Activity Tolerance,Balance, Functional Activities, Functional Mobility,Gait,Pain, Posture,Soft Tissue Mobility, Strength Goals Four Impairment stairs Esl Instructor Goal (LTG) Pt will descend stairs with step over step patterning and use of unilateral hand rail without increase in pain to improve her ability to care for her daughter. LTG Duration 06/11/20 Three Impairment Pt unable to walk more than a few blocks Short Term Goal (STG) Pt will walk 1/4 mile with 1- point increase in pain or less 05/21/20 - Partially met - pt walked 0.2 miles in 6MWT without increased pain STG Duration 04/30/20 Nursing Home Goal (LTG) Pt will walk 1 mile with 1- point increase in pain or less LTG Duration 06/11/20 Two Impairment Pt is unable to cross her legs comfortably Nursing Home Goal (LTG) Pt will be able to cross her legs in order to don lower body garments without increase in pain LTG Duration 06/11/20 One Impairment Pt has no HEP Short Term Goal (STG) Pt will be indepednent with HEP for support of therapy services provided in clinic. 05/07/20 - MET STG Duration 04/30/20 Esl Instructor Goal (LTG) Pt will be independent with maintenance HEP for sustained gains. LTG Duration 06/11/20 Assessment Summary Assessment Pt continues to be limited by sleep deprivation in spite of good sleep hygiene. Treatement today focused on hip strengthening with pt tolerating increase in resistance well without pain complaint. Physical Therapy Plan Frequency and Duration Frequency of Treatment 1-2x/week Duration of Treatment 10 weeks Plan of Care Start Date 04/02/20 Plan of Care End Date 06/11/20 Therapeutic Interventions Therapeutic Interventions Balance Training,Gait Training ,Home Exercise Program,Joint Mobilizations,Manual Therapy, Neuromuscular Re-education, Patient/Caregiver Education, Self-Care/Home Management,Soft Tissue Mobilization, Therapeutic Activities, Therapeutic Exercises Modalities Cold Pack/Ice Massage,Hot Packs Next Visit Focus/Plan Next Note Type Treatment Note Next Visit Plan progress phys quieting; progress hip mobility and BLE strengthening; intiate stair training
--- NOTE | 2020-05-28 11:51 | PT.OTN ---
Current Diagnoses Pain in left wrist (05/28/20) Pain in left knee (05/28/20) Low back pain (05/28/20) Other muscle spasm (05/28/20) Pain in left arm (05/28/20) Pain in left hand (05/28/20) Difficulty in walking, not elsewhere classified (05/28/20) Abnormal posture (05/28/20) Physical Therapy Treatment Note PT-OP-A Visit Information Start: 04/02/20 13:13 Freq: Status: Active Protocol: Document 05/28/20 11:20 AW (Rec: 05/28/20 11:51 AW [email or web address]) Out-Patient Physical Therapy Visit Information Visit Information Visit Start Time 09:42 Visit Stop Time 10:28 Total Visit Minutes 46 Visit Number 7 Evaluation Information Evaluation Date 04/02/20 PT-OP-B Current Condition Start: 04/02/20 13:13 Freq: Status: Active Protocol: Document 04/02/20 13:24 AW (Rec: 04/02/20 14:21 AW [id number]) Current Condition History of Current Condition Onset Date July 2019 Current Complaints left knee pain, low back pain History of Current Condition Vanita began to notice left knee pain after she and her daughter moved from [facility]. They live in an apartment complex where Vanita lives upstairs (18 steps with wide bilateral rails) and her daughter lives downstairs. 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 The daughter has hired caregiver assist ~4 hours daily in the morning. Vanita is now up and down the stairs several times per day and notes increased left medial knee pain as well as low back pain. Going down the stairs is more provocative than going up. Prior to her daughter's stroke, Vanita was walking several miles per day for exercise. She is now deconditioned to the point where she has a hard limit of a couple of blocks due to feeling out of shape and now due to pain in her knee and back. She denies history of falls, stating she has not fallen at all in the past two years. She does report symptoms of positional vertigo but is not currently being treated for that. 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 Prior Treatments and Tests Thyroid lobectomy at . No prior PT for knee or back. I've been so busy taking care of my daughter. Future Testing and Treatments Planned None identified Prior Functional Status Baseline Function- ADL's Independent Baseline Function- Mobility Independent Baseline Function- Gait Pt able to walk longer than a few blocks. 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 Difficulty navigating stairs, especially going down which she must do to care for her daughter. PT-OP-C Subjective Start: 04/02/20 13:13 Freq: Status: Active Protocol: Document 05/28/20 11:20 AW (Rec: 05/28/20 11:51 AW [email or web address]) OP-PT Subjective Patient Comments Patient Comments I've slept a little better the last few nights and it's getting a little easier to cross my legs Patient Reported Progress Improving PT-OP-F Manual Assessment Start: 04/02/20 13:13 Freq: Status: Active Protocol: Document 04/02/20 13:24 AW (Rec: 04/03/20 17:14 AW [id number]) Manual Assessments Soft Tissue Assessment Soft Tissue Mobility Assessment - increased density of upper gluteal region bilaterally Joint Mobility Assessment Joint Mobility Assessment - decreased A/P glides at all lumbar levels PT-OP-G Mobility & Gait Start: 04/02/20 13:13 Freq: Status: Active Protocol: Document 04/02/20 13:24 AW (Rec: 04/03/20 17:14 AW [id number]) OP Mobility Evaluation Bed Mobility Rolling IND Supine to and from Sit IND Transfers Sit to Stand IND Bed to Chair Transfers IND Functional Movements Squats pt is able to perform half squat with valgus knee posture OP Gait Assessment Gait Gait Assistance Required: Independent Distance (Feet) 200 Assistive Devices Assistive Device None Gait Deviations General Gait Pattern Decreased Feet Clearance, Flexed Trunk,Narrow Based Gait Comments Gait Comments Pt walks with increased pronation right foot and right hip externally rotated greater than left PT-OP-H Neuro Start: 04/02/20 13:13 Freq: Status: Active Protocol: Document 04/02/20 13:24 AW (Rec: 04/03/20 17:14 AW [id number]) Sensation Evaluation Gross Sensation Gross Sensation WNL Deep Tendon Reflex & Clonus Assessment Deep Tendon Reflex Bilateral Achilles Deep Tendon Reflex 1+ Diminished Bilateral Patellar Deep Tendon Reflex 1+ Diminished PT-OP-K Range of Motion Start: 04/02/20 13:13 Freq: Status: Active Protocol: Document 04/02/20 13:24 AW (Rec: 04/03/20 17:14 AW [id number]) Lumbar Spine Range of Motion Lumbar Spine Active Degrees Comments WNL all planes Hip Goniometric Range of Motion Hip Left Active Hip ROM WFL No Hip ROM Limitations Comments AROM WNL all planes with exception of limited IR. PROM and overpressure all normal with limitation of IR. Knee Goniometric Range of Motion Knee ROM Limitations Comments WNL PT-OP-L Special Tests Start: 04/02/20 13:13 Freq: Status: Active Protocol: Document 04/02/20 13:24 AW (Rec: 04/06/20 16:59 AW [email or web address]) Special Tests Hip Special Tests Trendelenberg Test Results positive bilaterally Scour Test Test Results negative bilaterally Knee Special Tests ligaments Test Results stable A/P and medial/lateral PT-OP-M Strength Start: 04/02/20 13:13 Freq: Status: Active Protocol: Document 04/02/20 13:24 AW (Rec: 04/03/20 17:14 AW [id number]) Hip Strength Hip Manual Muscle Testing Left Flexion (L2) 4+ Good+ Extension (S1) 4 Good Abduction 4 Good Adduction 4 Good External Rotation 4 Good Internal Rotation 4- Good- Comments Strength equal on left and right Knee Strength Knee Manual Muscle Testing Left Flexion (S2) 4 Good Extension (L3) 4 Good Comments Strength equal on left and right Ankle/Foot Strength Ankle and Foot Manual Muscle Testing Left Dorsiflexion (L4) 4 Good Plantarflexion (S1) 4- Good- Inversion 4 Good Eversion (S1) 4 Good Comments Equal bilaterally PT-OP-Q Treatments Start: 04/02/20 13:13 Freq: Status: Active Protocol: Document 05/28/20 11:20 AW (Rec: 05/28/20 11:51 AW [email or web address]) Cardio Equipment Recumbent Elliptical ([employer]) Duration (Minutes) 6 Resistance 1 Seat Position 5 Other improved tolerance today Gym Equipment Shuttle Recovery Bilateral Squats Details bilateral squats Resistance 62, 75 Shuttle Recovery Platform Stable,Unstable Reps/Time 62# x 10 reps; 75# x 10 reps ( 2 sets) Shuttle Balance 1 Details red clips Reps/Duration 8 min Comments WBOS, NBOS, EO, EC, fwd, sideways, lateral weight shifting, mini squats Therapeutic Exercises Sitting Exercises sit to stand Sitting Exercise Name sit to stand Reps/Minutes 10 reps Comments cued forward lean, glut facilitation Standing Exercises TKE Standing Exercise Name TKE Side bilateral Resistance level 2 Equipment Used TB Reps/Minutes 15 reps lateral step up Standing Exercise Name lateral step up Side bilateral Equipment Used 6 step Reps/Minutes cues for toes forward resisted hip abduction Standing Exercise Name resisted hip abduction Side bilateral Resistance red loop Reps/Minutes 10 reps x 2 Comments cues for stance leg glute facilitation to improve foot clearance resisted side stepping Standing Exercise Name resisted side stepping Side bilateral Resistance red loop Reps/Minutes 15 foot lap x 2 Comments cues for stance leg glute facilitation to improve foot clearance resisted hip extension Standing Exercise Name resisted hip extension Side bilateral Resistance red loop Reps/Minutes 10 reps x 2 Comments cues for posture PT-OP-T Assessment and Plan Start: 04/02/20 13:13 Freq: Status: Active Protocol: Document 05/28/20 11:20 AW (Rec: 05/28/20 11:51 AW [email or web address]) Physical Therapy Assessment Impairments Impairments Activity Tolerance,Balance, Functional Activities, Functional Mobility,Gait,Pain, Posture,Soft Tissue Mobility, Strength Goals Five Impairment endurance Shelter Goal (LTG) Pt will increase distance in 6MWT from 1125 feet to 1286 feet to demonstrate improved cardiovascular efficiency LTG Duration 06/11/20 Four Impairment stairs Report Clerk Goal (LTG) Pt will descend stairs with step over step patterning and use of unilateral hand rail without increase in pain to improve her ability to care for her daughter. LTG Duration 06/11/20 Three Impairment Pt unable to walk more than a few blocks Short Term Goal (STG) Pt will walk 1/4 mile with 1- point increase in pain or less 05/21/20 - Partially met - pt walked 0.2 miles in 6MWT without increased pain STG Duration 04/30/20 Shelter Goal (LTG) Pt will walk 1 mile with 1- point increase in pain or less LTG Duration 06/11/20 Two Impairment Pt is unable to cross her legs comfortably Report Clerk Goal (LTG) Pt will be able to cross her legs in order to don lower body garments without increase in pain LTG Duration 06/11/20 One Impairment Pt has no HEP Short Term Goal (STG) Pt will be indepednent with HEP for support of therapy services provided in clinic. 05/07/20 - MET STG Duration 04/30/20 Report Clerk Goal (LTG) Pt will be independent with maintenance HEP for sustained gains. LTG Duration 06/11/20 Assessment Summary Assessment Pt presents with improved energy today related to better sleep. She tolerated increase in ther ex load today. She reports good progress toward goals but hopes to progress even further. Will assess for extension of POC at next visit . Physical Therapy Plan Frequency and Duration Frequency of Treatment 1-2x/week Duration of Treatment 10 weeks Plan of Care Start Date 04/02/20 Plan of Care End Date 06/11/20 Therapeutic Interventions Therapeutic Interventions Balance Training,Gait Training ,Home Exercise Program,Joint Mobilizations,Manual Therapy, Neuromuscular Re-education, Patient/Caregiver Education, Self-Care/Home Management,Soft Tissue Mobilization, Therapeutic Activities, Therapeutic Exercises Modalities Cold Pack/Ice Massage,Hot Packs Next Visit Focus/Plan Next Note Type Treatment Note Next Visit Plan include phys quieting during activities; progress hip mobility and BLE strengthening ; intiate stair training
--- NOTE | 2020-06-06 11:55 | PT.OTN ---
Current Diagnoses Pain in left wrist (06/06/20) Pain in left knee (06/06/20) Low back pain (06/06/20) Other muscle spasm (06/06/20) Pain in left arm (06/06/20) Pain in left hand (06/06/20) Difficulty in walking, not elsewhere classified (06/06/20) Abnormal posture (06/06/20) Physical Therapy Treatment Note PT-OP-A Visit Information Start: 04/02/20 13:13 Freq: Status: Active Protocol: Document 06/06/20 10:31 MA (Rec: 06/06/20 11:46 MA [id number]) Out-Patient Physical Therapy Visit Information Visit Information Visit Type Treatment Note Visit Start Time 10:30 Visit Stop Time 11:25 Total Visit Minutes 55 Visit Number 8 Number of FRONT OFFICE ASSOCIATE Visits 1 PT-OP-B Current Condition Start: 04/02/20 13:13 Freq: Status: Active Protocol: Document 04/02/20 13:24 AW (Rec: 04/02/20 14:21 AW [id number]) Current Condition History of Current Condition Onset Date July 2019 Current Complaints left knee pain, low back pain History of Current Condition Vanita began to notice left knee pain after she and her daughter moved from [facility]. They live in an apartment complex where Vanita lives upstairs (18 steps with wide bilateral rails) and her daughter lives downstairs. 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 The daughter has hired caregiver assist ~4 hours daily in the morning. Vanita is now up and down the stairs several times per day and notes increased left medial knee pain as well as low back pain. Going down the stairs is more provocative than going up. Prior to her daughter's stroke, Vanita was walking several miles per day for exercise. She is now deconditioned to the point where she has a hard limit of a couple of blocks due to feeling out of shape and now due to pain in her knee and back. She denies history of falls, stating she has not fallen at all in the past two years. She does report symptoms of positional vertigo but is not currently being treated for that. 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 Prior Treatments and Tests Thyroid lobectomy at . No prior PT for knee or back. I've been so busy taking care of my daughter. Future Testing and Treatments Planned None identified Prior Functional Status Baseline Function- ADL's Independent Baseline Function- Mobility Independent Baseline Function- Gait Pt able to walk longer than a few blocks. 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 Difficulty navigating stairs, especially going down which she must do to care for her daughter. PT-OP-C Subjective Start: 04/02/20 13:13 Freq: Status: Active Protocol: Document 06/06/20 10:31 MA (Rec: 06/06/20 11:46 MA [id number]) OP-PT Subjective Patient Comments Patient Comments Pt stated she has been having some pain in her BLEs and is worried about her daughter's new caregiver. She states she is unable to continue doing as much caretaking for her daughter due to LBP and old age. Pt completed pain assessment body diagram upon arrival Patient Questionnaires Lower Extremity Functional Scale LEFS Impairment 20 to 39% Impaired (Score 48- 62) PT-OP-E Functional Tests Start: 04/02/20 13:13 Freq: Status: Active Protocol: Document 06/06/20 11:48 MA (Rec: 06/06/20 11:51 MA [id number]) Functional Tests 6 Minute Walk Test Distance 1364 Device Used none Comments pt able to increase distance from 1125 ft with mild c/o of SOB & calf pain PT-OP-F Manual Assessment Start: 04/02/20 13:13 Freq: Status: Active Protocol: Document 04/02/20 13:24 AW (Rec: 04/03/20 17:14 AW [id number]) Manual Assessments Soft Tissue Assessment Soft Tissue Mobility Assessment - increased density of upper gluteal region bilaterally Joint Mobility Assessment Joint Mobility Assessment - decreased A/P glides at all lumbar levels PT-OP-G Mobility & Gait Start: 04/02/20 13:13 Freq: Status: Active Protocol: Document 04/02/20 13:24 AW (Rec: 04/03/20 17:14 AW [id number]) OP Mobility Evaluation Bed Mobility Rolling IND Supine to and from Sit IND Transfers Sit to Stand IND Bed to Chair Transfers IND Functional Movements Squats pt is able to perform half squat with valgus knee posture OP Gait Assessment Gait Gait Assistance Required: Independent Distance (Feet) 200 Assistive Devices Assistive Device None Gait Deviations General Gait Pattern Decreased Feet Clearance, Flexed Trunk,Narrow Based Gait Comments Gait Comments Pt walks with increased pronation right foot and right hip externally rotated greater than left PT-OP-H Neuro Start: 04/02/20 13:13 Freq: Status: Active Protocol: Document 04/02/20 13:24 AW (Rec: 04/03/20 17:14 AW [id number]) Sensation Evaluation Gross Sensation Gross Sensation WNL Deep Tendon Reflex & Clonus Assessment Deep Tendon Reflex Bilateral Achilles Deep Tendon Reflex 1+ Diminished Bilateral Patellar Deep Tendon Reflex 1+ Diminished PT-OP-K Range of Motion Start: 04/02/20 13:13 Freq: Status: Active Protocol: Document 04/02/20 13:24 AW (Rec: 04/03/20 17:14 AW [id number]) Lumbar Spine Range of Motion Lumbar Spine Active Degrees Comments WNL all planes Hip Goniometric Range of Motion Hip Left Active Hip ROM WFL No Hip ROM Limitations Comments AROM WNL all planes with exception of limited IR. PROM and overpressure all normal with limitation of IR. Knee Goniometric Range of Motion Knee ROM Limitations Comments WNL PT-OP-L Special Tests Start: 04/02/20 13:13 Freq: Status: Active Protocol: Document 04/02/20 13:24 AW (Rec: 04/06/20 16:59 AW [email or web address]) Special Tests Hip Special Tests Trendelenberg Test Results positive bilaterally Scour Test Test Results negative bilaterally Knee Special Tests ligaments Test Results stable A/P and medial/lateral PT-OP-M Strength Start: 04/02/20 13:13 Freq: Status: Active Protocol: Document 04/02/20 13:24 AW (Rec: 04/03/20 17:14 AW [id number]) Hip Strength Hip Manual Muscle Testing Left Flexion (L2) 4+ Good+ Extension (S1) 4 Good Abduction 4 Good Adduction 4 Good External Rotation 4 Good Internal Rotation 4- Good- Comments Strength equal on left and right Knee Strength Knee Manual Muscle Testing Left Flexion (S2) 4 Good Extension (L3) 4 Good Comments Strength equal on left and right Ankle/Foot Strength Ankle and Foot Manual Muscle Testing Left Dorsiflexion (L4) 4 Good Plantarflexion (S1) 4- Good- Inversion 4 Good Eversion (S1) 4 Good Comments Equal bilaterally PT-OP-Q Treatments Start: 04/02/20 13:13 Freq: Status: Active Protocol: Document 06/06/20 10:31 MA (Rec: 06/06/20 11:46 MA [id number]) Cardio Equipment Recumbent Elliptical ([employer]) Duration (Minutes) 6 Resistance 1 Seat Position 5 Other mild complaints of trouble breathing in last minute on [employer] Therapeutic Exercises Standing Exercises 6MWT Reps/Minutes 6 Comments pt increased distance to 1364 from 1125 Manual Therapy Treatment Soft Tissue Mobilization Hamstrings Body Location Hamstring Mobilization Type Myofascial Release,Rolling Intensity/Depth Moderate Comments Hamstring splaying manually and rolling with moderate pressure using rolling pin 2 Body Location IT Band Mobilization Type Myofascial Release,Rolling Intensity/Depth Moderate Body Position Hooklying Comments Rolling pin with superficial to moderate pressure, pt hooklying with slight internal rotation Self-Care/Home Management Treatment Education Patient Education Pain Management Other Education Pt educated on how to roll out gastroc mms after walking long distances PT-OP-T Assessment and Plan Start: 04/02/20 13:13 Freq: Status: Active Protocol: Document 06/06/20 10:31 MA (Rec: 06/06/20 11:46 MA [id number]) Physical Therapy Assessment Goals Five Impairment endurance Optical Brightener Maker Helper Goal (LTG) Pt will increase distance in 6MWT from 1125 feet to 1286 feet to demonstrate improved cardiovascular efficiency 06/06/20 Goal Met- pt was able to increase distance to 1364 ft, no AD LTG Duration 06/11/20 Four Impairment stairs Snf Goal (LTG) Pt will descend stairs with step over step patterning and use of unilateral hand rail without increase in pain to improve her ability to care for her daughter. LTG Duration 06/11/20 Three Impairment Pt unable to walk more than a few blocks Short Term Goal (STG) Pt will walk 1/4 mile with 1- point increase in pain or less 05/21/20 - Partially met - pt walked 0.2 miles in 6MWT without increased pain 06/06/20 - partially met- after 6MWT pt c/o chest pain (SOB ) STG Duration 04/30/20 Snf Goal (LTG) Pt will walk 1 mile with 1- point increase in pain or less LTG Duration 06/11/20 Two Impairment Pt is unable to cross her legs comfortably Optical Brightener Maker Helper Goal (LTG) Pt will be able to cross her legs in order to don lower body garments without increase in pain 06/06/20 - progressing- pt still finds some difficulty if damp/rainy outside LTG Duration 06/11/20 One Impairment Pt has no HEP Short Term Goal (STG) Pt will be indepednent with HEP for support of therapy services provided in clinic. 05/07/20 - MET STG Duration 04/30/20 Optical Brightener Maker Helper Goal (LTG) Pt will be independent with maintenance HEP for sustained gains. LTG Duration 06/11/20 Assessment Summary Assessment Pt increased distance on 6MWT with mild c/o SOB and calf tightness. Becasue of SOB, manual therapy was performed on BLEs to release mm tension. Physical Therapy Plan Frequency and Duration Frequency of Treatment 1-2x/week Duration of Treatment 10 weeks Plan of Care Start Date 04/02/20 Plan of Care End Date 06/11/20 Therapeutic Interventions Therapeutic Interventions Balance Training,Gait Training ,Home Exercise Program,Joint Mobilizations,Manual Therapy, Neuromuscular Re-education, Patient/Caregiver Education, Self-Care/Home Management,Soft Tissue Mobilization, Therapeutic Activities, Therapeutic Exercises Modalities Cold Pack/Ice Massage,Hot Packs Next Visit Focus/Plan Next Visit Plan Updated POC needed next session. Continue strengthening BLEs and initiate stair training
--- NOTE | 2020-06-11 15:45 | PT.OTN ---
Current Diagnoses Pain in left wrist (06/11/20) Pain in left knee (06/11/20) Low back pain (06/11/20) Other muscle spasm (06/11/20) Pain in left arm (06/11/20) Pain in left hand (06/11/20) Difficulty in walking, not elsewhere classified (06/11/20) Abnormal posture (06/11/20) Physical Therapy Treatment Note PT-OP-A Visit Information Start: 04/02/20 13:13 Freq: Status: Active Protocol: Document 06/11/20 11:01 AMB (Rec: 06/11/20 11:30 AMB [id number]) Out-Patient Physical Therapy Visit Information Visit Information Visit Type Progress Note Visit Start Time 11:00 Visit Stop Time 11:45 Total Visit Minutes 45 Visit Number 9 Number of TESTS SUPERINTENDENT Visits 0 PT-OP-B Current Condition Start: 04/02/20 13:13 Freq: Status: Active Protocol: Document 04/02/20 13:24 AW (Rec: 04/02/20 14:21 AW [id number]) Current Condition History of Current Condition Onset Date July 2019 Current Complaints left knee pain, low back pain History of Current Condition Vanita began to notice left knee pain after she and her daughter moved from [facility]. They live in an apartment complex where Vanita lives upstairs (18 steps with wide bilateral rails) and her daughter lives downstairs. 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 The daughter has hired caregiver assist ~4 hours daily in the morning. Vanita is now up and down the stairs several times per day and notes increased left medial knee pain as well as low back pain. Going down the stairs is more provocative than going up. Prior to her daughter's stroke, Vanita was walking several miles per day for exercise. She is now deconditioned to the point where she has a hard limit of a couple of blocks due to feeling out of shape and now due to pain in her knee and back. She denies history of falls, stating she has not fallen at all in the past two years. She does report symptoms of positional vertigo but is not currently being treated for that. 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 Prior Treatments and Tests Thyroid lobectomy at . No prior PT for knee or back. I've been so busy taking care of my daughter. Future Testing and Treatments Planned None identified Prior Functional Status Baseline Function- ADL's Independent Baseline Function- Mobility Independent Baseline Function- Gait Pt able to walk longer than a few blocks. 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 Difficulty navigating stairs, especially going down which she must do to care for her daughter. PT-OP-C Subjective Start: 04/02/20 13:13 Freq: Status: Active Protocol: Document 06/11/20 11:01 AMB (Rec: 06/11/20 11:30 AMB [id number]) OP-PT Subjective Patient Comments Patient Comments Bending over increases low back pain. Making the bed continues to be painful. PT-OP-E Functional Tests Start: 04/02/20 13:13 Freq: Status: Active Protocol: Document 06/06/20 11:48 MA (Rec: 06/06/20 11:51 MA [id number]) Functional Tests 6 Minute Walk Test Distance 1364 Device Used none Comments pt able to increase distance from 1125 ft with mild c/o of SOB & calf pain PT-OP-F Manual Assessment Start: 04/02/20 13:13 Freq: Status: Active Protocol: Document 04/02/20 13:24 AW (Rec: 04/03/20 17:14 AW [id number]) Manual Assessments Soft Tissue Assessment Soft Tissue Mobility Assessment - increased density of upper gluteal region bilaterally Joint Mobility Assessment Joint Mobility Assessment - decreased A/P glides at all lumbar levels PT-OP-G Mobility & Gait Start: 04/02/20 13:13 Freq: Status: Active Protocol: Document 04/02/20 13:24 AW (Rec: 04/03/20 17:14 AW [id number]) OP Mobility Evaluation Bed Mobility Rolling IND Supine to and from Sit IND Transfers Sit to Stand IND Bed to Chair Transfers IND Functional Movements Squats pt is able to perform half squat with valgus knee posture OP Gait Assessment Gait Gait Assistance Required: Independent Distance (Feet) 200 Assistive Devices Assistive Device None Gait Deviations General Gait Pattern Decreased Feet Clearance, Flexed Trunk,Narrow Based Gait Comments Gait Comments Pt walks with increased pronation right foot and right hip externally rotated greater than left PT-OP-H Neuro Start: 04/02/20 13:13 Freq: Status: Active Protocol: Document 04/02/20 13:24 AW (Rec: 04/03/20 17:14 AW [id number]) Sensation Evaluation Gross Sensation Gross Sensation WNL Deep Tendon Reflex & Clonus Assessment Deep Tendon Reflex Bilateral Achilles Deep Tendon Reflex 1+ Diminished Bilateral Patellar Deep Tendon Reflex 1+ Diminished PT-OP-K Range of Motion Start: 04/02/20 13:13 Freq: Status: Active Protocol: Document 04/02/20 13:24 AW (Rec: 04/03/20 17:14 AW [id number]) Lumbar Spine Range of Motion Lumbar Spine Active Degrees Comments WNL all planes Hip Goniometric Range of Motion Hip Left Active Hip ROM WFL No Hip ROM Limitations Comments AROM WNL all planes with exception of limited IR. PROM and overpressure all normal with limitation of IR. Knee Goniometric Range of Motion Knee ROM Limitations Comments WNL PT-OP-L Special Tests Start: 04/02/20 13:13 Freq: Status: Active Protocol: Document 04/02/20 13:24 AW (Rec: 04/06/20 16:59 AW [id number]) Special Tests Hip Special Tests Trendelenberg Test Results positive bilaterally Scour Test Test Results negative bilaterally Knee Special Tests ligaments Test Results stable A/P and medial/lateral PT-OP-M Strength Start: 04/02/20 13:13 Freq: Status: Active Protocol: Document 04/02/20 13:24 AW (Rec: 04/03/20 17:14 AW [id number]) Hip Strength Hip Manual Muscle Testing Left Flexion (L2) 4+ Good+ Extension (S1) 4 Good Abduction 4 Good Adduction 4 Good External Rotation 4 Good Internal Rotation 4- Good- Comments Strength equal on left and right Knee Strength Knee Manual Muscle Testing Left Flexion (S2) 4 Good Extension (L3) 4 Good Comments Strength equal on left and right Ankle/Foot Strength Ankle and Foot Manual Muscle Testing Left Dorsiflexion (L4) 4 Good Plantarflexion (S1) 4- Good- Inversion 4 Good Eversion (S1) 4 Good Comments Equal bilaterally PT-OP-Q Treatments Start: 04/02/20 13:13 Freq: Status: Active Protocol: Document 06/11/20 11:15 AMB (Rec: 06/11/20 12:53 AMB [id number]) Cardio Equipment Recumbent Elliptical (Biodex) Duration (Minutes) 6 Resistance 1 Seat Position 5 Other improved tolerance today Therapeutic Exercises Supine Exercises 1 Supine Exercise Name SLR Comments difficulty engaging abs due to previous surgeries piriformis stretch Supine Exercise Name piriformis stretch Side bilateral Reps/Minutes 15 sec hold x 2 Comments pt assisted to place ankle on opposite knee Sitting Exercises sit to stand Sitting Exercise Name sit to stand Reps/Minutes 10 reps Comments cued forward lean, glut facilitation Standing Exercises resisted side stepping Standing Exercise Name resisted side stepping Side bilateral Resistance red loop Reps/Minutes 15 foot lap x 2 Comments cues for stance leg glute facilitation to improve foot clearance PT-OP-T Assessment and Plan Start: 04/02/20 13:13 Freq: Status: Active Protocol: Document 06/11/20 11:01 AMB (Rec: 06/11/20 11:30 AMB [id number]) Physical Therapy Assessment Goals Five Impairment endurance Plasma Processor Goal (LTG) Pt will increase distance in 6MWT from 1125 feet to 1286 feet to demonstrate improved cardiovascular efficiency 06/06/20 Goal Met- pt was able to increase distance to 1364 ft, no AD LTG Duration MET Four Impairment stairs Plasma Processor Goal (LTG) Pt will descend stairs with step over step patterning and use of unilateral hand rail without increase in pain to improve her ability to care for her daughter. LTG Duration 07/23/20 Three Impairment Pt unable to walk more than a few blocks Short Term Goal (STG) Pt will walk 1/4 mile with 1- point increase in pain or less 05/21/20 - Partially met - pt walked 0.2 miles in 6MWT without increased pain 06/06/20 - partially met- after 6MWT pt c/o chest pain (SOB ) STG Duration 07/02/20 Usp Goal (LTG) Pt will walk 1 mile with 1- point increase in pain or less LTG Duration 07/23/20 Two Impairment Pt is unable to cross her legs comfortably Usp Goal (LTG) Pt will be able to cross her legs in order to don lower body garments without increase in pain 06/06/20 - progressing- pt still finds some difficulty if damp/rainy outside LTG Duration 07/23/20 One Impairment Pt has no HEP Short Term Goal (STG) Pt will be indepednent with HEP for support of therapy services provided in clinic. 05/07/20 - MET STG Duration MET Plasma Processor Goal (LTG) Pt will be independent with maintenance HEP for sustained gains. LTG Duration 07/23/20 Assessment Summary Assessment Pt reports overall she feels her function is improving. She continues to have low back pain with leg pain that comes and goes. It is still difficult for her to bend over or squat down fully. Vanita is consistent with her HEP, and given that she has met some but not all of her goals, would benefit from continued physical therapy to progress her ability to care for her daughter and overall mobility with less pain. Physical Therapy Plan Frequency and Duration Frequency of Treatment 2x/Week Duration of Treatment 6 weeks Plan of Care Start Date 06/11/20 Plan of Care End Date 07/23/20 Therapeutic Interventions Therapeutic Interventions Balance Training,Gait Training ,Home Exercise Program,Joint Mobilizations,Manual Therapy, Neuromuscular Re-education, Patient/Caregiver Education, Self-Care/Home Management,Soft Tissue Mobilization, Therapeutic Activities, Therapeutic Exercises Modalities Cold Pack/Ice Massage,Hot Packs
--- NOTE | 2020-06-11 15:45 | PT.OPPOC ---
Physical, Occupational & Speech Therapy At [facility] Current Diagnoses Pain in left wrist (06/11/20) Pain in left knee (06/11/20) Low back pain (06/11/20) Other muscle spasm (06/11/20) Pain in left arm (06/11/20) Pain in left hand (06/11/20) Difficulty in walking, not elsewhere classified (06/11/20) Abnormal posture (06/11/20) Visit Care Team Role Provider Type LUCHO Lerma Attending Provider Advanced Preschool Paraprofessional Primary Care Provider Referring Provider Specialty: [facility] Practice Address: [address] [place] [address], [facility] Email: [email or web address] Plan Of Care PT-OP-T Assessment and Plan Start: 04/02/20 13:13 Freq: Status: Active Protocol: Document 06/11/20 11:01 AMB (Rec: 06/11/20 11:30 AMB [id number]) Physical Therapy Assessment Goals Five Impairment endurance Technical Solution Architect Goal (LTG) Pt will increase distance in 6MWT from 1125 feet to 1286 feet to demonstrate improved cardiovascular efficiency 06/06/20 Goal Met- pt was able to increase distance to 1364 ft, no AD LTG Duration MET Four Impairment stairs Technical Solution Architect Goal (LTG) Pt will descend stairs with step over step patterning and use of unilateral hand rail without increase in pain to improve her ability to care for her daughter. LTG Duration 07/23/20 Three Impairment Pt unable to walk more than a few blocks Short Term Goal (STG) Pt will walk 1/4 mile with 1- point increase in pain or less 05/21/20 - Partially met - pt walked 0.2 miles in 6MWT without increased pain 06/06/20 - partially met- after 6MWT pt c/o chest pain (SOB ) STG Duration 07/02/20 Mcc Goal (LTG) Pt will walk 1 mile with 1- point increase in pain or less LTG Duration 07/23/20 Two Impairment Pt is unable to cross her legs comfortably Mcc Goal (LTG) Pt will be able to cross her legs in order to don lower body garments without increase in pain 06/06/20 - progressing- pt still finds some difficulty if damp/rainy outside LTG Duration 07/23/20 One Impairment Pt has no HEP Short Term Goal (STG) Pt will be indepednent with HEP for support of therapy services provided in clinic. 05/07/20 - MET STG Duration MET Mcc Goal (LTG) Pt will be independent with maintenance HEP for sustained gains. LTG Duration 07/23/20 Assessment Summary Assessment Pt reports overall she feels her function is improving. She continues to have low back pain with leg pain that comes and goes. It is still difficult for her to bend over or squat down fully. Vanita is consistent with her HEP, and given that she has met some but not all of her goals, would benefit from continued physical therapy to progress her ability to care for her daughter and overall mobility with less pain. Physical Therapy Plan Frequency and Duration Frequency of Treatment 2x/Week Duration of Treatment 6 weeks Plan of Care Start Date 06/11/20 Plan of Care End Date 07/23/20 Therapeutic Interventions Therapeutic Interventions Balance Training,Gait Training ,Home Exercise Program,Joint Mobilizations,Manual Therapy, Neuromuscular Re-education, Patient/Caregiver Education, Self-Care/Home Management,Soft Tissue Mobilization, Therapeutic Activities, Therapeutic Exercises Modalities Cold Pack/Ice Massage,Hot Packs Plan of Care Dates Plan of Care Start Date 06/11/20 Plan of Care End Date 07/23/20 Electronically Signed by: Brie Lo, PT 06/11/20 [id number] Please Sign and Return: I have reviewed this Plan of Care and certify that the skilled therapy services above are required to meet the patient?s needs. Physician Signature Date Printed Name and Credentials Clinical Instructor Signature Printed Name and Credentials
--- NOTE | 2020-06-17 09:15 | PT-OP ANOTE ---
Pt called cancelled same day appt due to fell and scraped moya pretty good and at time doing things to help control bleeding and swelling as ice, elevation, triple antibiotic and if worsens to follow up with physician for further assessment. Pt aware her next appt is 06/25 and believes that would a good amount time for wound healing but aware if changes her mind and wants, can call to see if any cancellations to get in sooner.
--- NOTE | 2020-06-25 11:40 | PT.OTN ---
Current Diagnoses Pain in left wrist (06/25/20) Pain in left knee (06/25/20) Low back pain (06/25/20) Other muscle spasm (06/25/20) Pain in left arm (06/25/20) Pain in left hand (06/25/20) Difficulty in walking, not elsewhere classified (06/25/20) Abnormal posture (06/25/20) Physical Therapy Treatment Note PT-OP-A Visit Information Start: 04/02/20 13:13 Freq: Status: Active Protocol: Document 06/25/20 10:05 AMB (Rec: 06/25/20 10:29 AMB [id number]) Out-Patient Physical Therapy Visit Information Visit Information Visit Type Treatment Note Visit Start Time 09:00 Visit Stop Time 09:45 Total Visit Minutes 45 Visit Number 10 Number of WEED BURNER Visits 0 PT-OP-B Current Condition Start: 04/02/20 13:13 Freq: Status: Active Protocol: Document 04/02/20 13:24 AW (Rec: 04/02/20 14:21 AW [id number]) Current Condition History of Current Condition Onset Date July 2019 Current Complaints left knee pain, low back pain History of Current Condition Vanita began to notice left knee pain after she and her daughter moved from [facility]. They live in an apartment complex where Vanita lives upstairs (18 steps with wide bilateral rails) and her daughter lives downstairs. 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 The daughter has hired caregiver assist ~4 hours daily in the morning. Vanita is now up and down the stairs several times per day and notes increased left medial knee pain as well as low back pain. Going down the stairs is more provocative than going up. Prior to her daughter's stroke, Vanita was walking several miles per day for exercise. She is now deconditioned to the point where she has a hard limit of a couple of blocks due to feeling out of shape and now due to pain in her knee and back. She denies history of falls, stating she has not fallen at all in the past two years. She does report symptoms of positional vertigo but is not currently being treated for that. 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 Prior Treatments and Tests Thyroid lobectomy at . No prior PT for knee or back. I've been so busy taking care of my daughter. Future Testing and Treatments Planned None identified Prior Functional Status Baseline Function- ADL's Independent Baseline Function- Mobility Independent Baseline Function- Gait Pt able to walk longer than a few blocks. 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 Difficulty navigating stairs, especially going down which she must do to care for her daughter. PT-OP-C Subjective Start: 04/02/20 13:13 Freq: Status: Active Protocol: Document 06/25/20 09:00 AMB (Rec: 06/25/20 11:34 AMB [id number]) OP-PT Subjective Patient Comments Patient Comments Pt reports she has had a fairly rough week. She fell last week (that's why she couldn't come into PT). She tripped on a stool that was in front of her fridge when she was up at night and while did have a bit of a skin tear on her right moya that is still healing. PT-OP-E Functional Tests Start: 04/02/20 13:13 Freq: Status: Active Protocol: Document 06/06/20 11:48 MA (Rec: 06/06/20 11:51 MA [id number]) Functional Tests 6 Minute Walk Test Distance 1364 Device Used none Comments pt able to increase distance from 1125 ft with mild c/o of SOB & calf pain PT-OP-F Manual Assessment Start: 04/02/20 13:13 Freq: Status: Active Protocol: Document 04/02/20 13:24 AW (Rec: 04/03/20 17:14 AW [id number]) Manual Assessments Soft Tissue Assessment Soft Tissue Mobility Assessment - increased density of upper gluteal region bilaterally Joint Mobility Assessment Joint Mobility Assessment - decreased A/P glides at all lumbar levels PT-OP-G Mobility & Gait Start: 04/02/20 13:13 Freq: Status: Active Protocol: Document 04/02/20 13:24 AW (Rec: 04/03/20 17:14 AW [id number]) OP Mobility Evaluation Bed Mobility Rolling IND Supine to and from Sit IND Transfers Sit to Stand IND Bed to Chair Transfers IND Functional Movements Squats pt is able to perform half squat with valgus knee posture OP Gait Assessment Gait Gait Assistance Required: Independent Distance (Feet) 200 Assistive Devices Assistive Device None Gait Deviations General Gait Pattern Decreased Feet Clearance, Flexed Trunk,Narrow Based Gait Comments Gait Comments Pt walks with increased pronation right foot and right hip externally rotated greater than left PT-OP-H Neuro Start: 04/02/20 13:13 Freq: Status: Active Protocol: Document 04/02/20 13:24 AW (Rec: 04/03/20 17:14 AW [id number]) Sensation Evaluation Gross Sensation Gross Sensation WNL Deep Tendon Reflex & Clonus Assessment Deep Tendon Reflex Bilateral Achilles Deep Tendon Reflex 1+ Diminished Bilateral Patellar Deep Tendon Reflex 1+ Diminished PT-OP-K Range of Motion Start: 04/02/20 13:13 Freq: Status: Active Protocol: Document 04/02/20 13:24 AW (Rec: 04/03/20 17:14 AW [id number]) Lumbar Spine Range of Motion Lumbar Spine Active Degrees Comments WNL all planes Hip Goniometric Range of Motion Hip Left Active Hip ROM WFL No Hip ROM Limitations Comments AROM WNL all planes with exception of limited IR. PROM and overpressure all normal with limitation of IR. Knee Goniometric Range of Motion Knee ROM Limitations Comments WNL PT-OP-L Special Tests Start: 04/02/20 13:13 Freq: Status: Active Protocol: Document 04/02/20 13:24 AW (Rec: 04/06/20 16:59 AW [email or web address]) Special Tests Hip Special Tests Trendelenberg Test Results positive bilaterally Scour Test Test Results negative bilaterally Knee Special Tests ligaments Test Results stable A/P and medial/lateral PT-OP-M Strength Start: 04/02/20 13:13 Freq: Status: Active Protocol: Document 04/02/20 13:24 AW (Rec: 04/03/20 17:14 AW [id number]) Hip Strength Hip Manual Muscle Testing Left Flexion (L2) 4+ Good+ Extension (S1) 4 Good Abduction 4 Good Adduction 4 Good External Rotation 4 Good Internal Rotation 4- Good- Comments Strength equal on left and right Knee Strength Knee Manual Muscle Testing Left Flexion (S2) 4 Good Extension (L3) 4 Good Comments Strength equal on left and right Ankle/Foot Strength Ankle and Foot Manual Muscle Testing Left Dorsiflexion (L4) 4 Good Plantarflexion (S1) 4- Good- Inversion 4 Good Eversion (S1) 4 Good Comments Equal bilaterally PT-OP-Q Treatments Start: 04/02/20 13:13 Freq: Status: Active Protocol: Document 06/25/20 09:00 AMB (Rec: 06/25/20 11:34 AMB [id number]) Cardio Equipment Recumbent Elliptical (Biodex) Duration (Minutes) 6 Resistance 2 Seat Position 5 Therapeutic Exercises Supine Exercises hamstring stretch Supine Exercise Name hamstring stretch Side bilateral SKTC Supine Exercise Name SKTC Side bilateral Reps/Minutes 15 sec hold x 2 Comments pt has difficulty pulling knee due to hand arthritis & limited hip ext ROM bridge Supine Exercise Name bridge Reps/Minutes 8 reps x 2 Sitting Exercises HS stretch Sitting Exercise Name HS stretch Side bilateral Reps/Minutes 4 min Comments with adduction for increased stretch Standing Exercises 3 Standing Exercise Name stair ascend/descent Comments L knee pain 2 Standing Exercise Name modified monster walk Comments mini squat then sidestep 1 Standing Exercise Name forward mini lunges Comments increased L knee pain Neuro Re-Education Treatment Balance Activities 2 Details stride stance with horizontal and then vertical head turns Comments horizontal harder than vertical 1 Details NBOS eyes closed Reps/Duration 2 min at railing, but not touching PT-OP-T Assessment and Plan Start: 04/02/20 13:13 Freq: Status: Active Protocol: Document 06/25/20 09:00 AMB (Rec: 06/25/20 09:24 AMB [id number]) Physical Therapy Assessment Assessment Summary Assessment Vanita continues to have knee pain with stairs, but was otherwise able to tolerate exercises today. She was worried about irritating the wound on her moya, so we modified some of the balance exercises. Physical Therapy Plan Next Visit Focus/Plan Next Note Type Treatment Note Next Visit Plan Continue stair and balance training, ariana s/p fall, but with respect for L knee, see if we can modifiy mini forward lunges so that they don't irritate knee
--- NOTE | 2020-06-27 09:51 | PT.OTN ---
Current Diagnoses Pain in left wrist (06/27/20) Pain in left knee (06/27/20) Low back pain (06/27/20) Other muscle spasm (06/27/20) Pain in left arm (06/27/20) Pain in left hand (06/27/20) Difficulty in walking, not elsewhere classified (06/27/20) Abnormal posture (06/27/20) Physical Therapy Treatment Note PT-OP-A Visit Information Start: 04/02/20 13:13 Freq: Status: Active Protocol: Document 06/27/20 09:00 SP (Rec: 06/27/20 11:54 SP [id number]) Out-Patient Physical Therapy Visit Information Visit Information Visit Type Treatment Note Visit Start Time 09:00 Visit Stop Time 09:51 Total Visit Minutes 51 Visit Number 11 Number of IRON LAUNDER OPERATOR Visits 1 PT-OP-B Current Condition Start: 04/02/20 13:13 Freq: Status: Active Protocol: Document 04/02/20 13:24 AW (Rec: 04/02/20 14:21 AW [id number]) Current Condition History of Current Condition Onset Date July 2019 Current Complaints left knee pain, low back pain History of Current Condition Vanita began to notice left knee pain after she and her daughter moved from [facility]. They live in an apartment complex where Vanita lives upstairs (18 steps with wide bilateral rails) and her daughter lives downstairs. 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 The daughter has hired caregiver assist ~4 hours daily in the morning. Vanita is now up and down the stairs several times per day and notes increased left medial knee pain as well as low back pain. Going down the stairs is more provocative than going up. Prior to her daughter's stroke, Vanita was walking several miles per day for exercise. She is now deconditioned to the point where she has a hard limit of a couple of blocks due to feeling out of shape and now due to pain in her knee and back. She denies history of falls, stating she has not fallen at all in the past two years. She does report symptoms of positional vertigo but is not currently being treated for that. 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 Prior Treatments and Tests Thyroid lobectomy at . No prior PT for knee or back. I've been so busy taking care of my daughter. Future Testing and Treatments Planned None identified Prior Functional Status Baseline Function- ADL's Independent Baseline Function- Mobility Independent Baseline Function- Gait Pt able to walk longer than a few blocks. 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 Difficulty navigating stairs, especially going down which she must do to care for her daughter. PT-OP-C Subjective Start: 04/02/20 13:13 Freq: Status: Active Protocol: Document 06/27/20 09:00 SP (Rec: 06/27/20 11:54 SP [id number]) OP-PT Subjective Patient Comments Patient Comments Pt stated that is able to put shoes/socks on better, compliant with HEP given, helpful, commented the only thing that hasn't changed is her stamina but doesn't know if that will change. She stated is challenged with early am appts scheduled, knows can reschedule to later in the day knowing hx of intestinal issues has and may need to cancel that day depending on how feeling when wakes but doesn't want that added stress. Pt also stated is over whelmed with having many other appts lately and caring for her daughter and still recovering from recent fall with slow healing wound on R moya. Pt is requesting cancel rest of PT appts at this time and feels the need to see PT in the future will get a new referral come back. PT-OP-E Functional Tests Start: 04/02/20 13:13 Freq: Status: Active Protocol: Document 06/06/20 11:48 MA (Rec: 06/06/20 11:51 MA [id number]) Functional Tests 6 Minute Walk Test Distance 1364 Device Used none Comments pt able to increase distance from 1125 ft with mild c/o of SOB & calf pain PT-OP-F Manual Assessment Start: 04/02/20 13:13 Freq: Status: Active Protocol: Document 04/02/20 13:24 AW (Rec: 04/03/20 17:14 AW [id number]) Manual Assessments Soft Tissue Assessment Soft Tissue Mobility Assessment - increased density of upper gluteal region bilaterally Joint Mobility Assessment Joint Mobility Assessment - decreased A/P glides at all lumbar levels PT-OP-G Mobility & Gait Start: 04/02/20 13:13 Freq: Status: Active Protocol: Document 04/02/20 13:24 AW (Rec: 04/03/20 17:14 AW [id number]) OP Mobility Evaluation Bed Mobility Rolling IND Supine to and from Sit IND Transfers Sit to Stand IND Bed to Chair Transfers IND Functional Movements Squats pt is able to perform half squat with valgus knee posture OP Gait Assessment Gait Gait Assistance Required: Independent Distance (Feet) 200 Assistive Devices Assistive Device None Gait Deviations General Gait Pattern Decreased Feet Clearance, Flexed Trunk,Narrow Based Gait Comments Gait Comments Pt walks with increased pronation right foot and right hip externally rotated greater than left PT-OP-H Neuro Start: 04/02/20 13:13 Freq: Status: Active Protocol: Document 04/02/20 13:24 AW (Rec: 04/03/20 17:14 AW [id number]) Sensation Evaluation Gross Sensation Gross Sensation WNL Deep Tendon Reflex & Clonus Assessment Deep Tendon Reflex Bilateral Achilles Deep Tendon Reflex 1+ Diminished Bilateral Patellar Deep Tendon Reflex 1+ Diminished PT-OP-K Range of Motion Start: 04/02/20 13:13 Freq: Status: Active Protocol: Document 04/02/20 13:24 AW (Rec: 04/03/20 17:14 AW [id number]) Lumbar Spine Range of Motion Lumbar Spine Active Degrees Comments WNL all planes Hip Goniometric Range of Motion Hip Left Active Hip ROM WFL No Hip ROM Limitations Comments AROM WNL all planes with exception of limited IR. PROM and overpressure all normal with limitation of IR. Knee Goniometric Range of Motion Knee ROM Limitations Comments WNL PT-OP-L Special Tests Start: 04/02/20 13:13 Freq: Status: Active Protocol: Document 04/02/20 13:24 AW (Rec: 04/06/20 16:59 AW [id number]) Special Tests Hip Special Tests Trendelenberg Test Results positive bilaterally Scour Test Test Results negative bilaterally Knee Special Tests ligaments Test Results stable A/P and medial/lateral PT-OP-M Strength Start: 04/02/20 13:13 Freq: Status: Active Protocol: Document 04/02/20 13:24 AW (Rec: 04/03/20 17:14 AW [id number]) Hip Strength Hip Manual Muscle Testing Left Flexion (L2) 4+ Good+ Extension (S1) 4 Good Abduction 4 Good Adduction 4 Good External Rotation 4 Good Internal Rotation 4- Good- Comments Strength equal on left and right Knee Strength Knee Manual Muscle Testing Left Flexion (S2) 4 Good Extension (L3) 4 Good Comments Strength equal on left and right Ankle/Foot Strength Ankle and Foot Manual Muscle Testing Left Dorsiflexion (L4) 4 Good Plantarflexion (S1) 4- Good- Inversion 4 Good Eversion (S1) 4 Good Comments Equal bilaterally PT-OP-Q Treatments Start: 04/02/20 13:13 Freq: Status: Active Protocol: Document 06/27/20 09:00 SP (Rec: 06/27/20 11:54 SP [id number]) Therapeutic Exercises Supine Exercises core heel slide Reps/Minutes discussed x5 Comments cued PPT, core faciliataion clamshell Resistance AROM x10, TB #1 x10 Reps/Minutes x5 Comments cued PPT TA trng, pelvic tilts Reps/Minutes 2 min Comments educated for hamstring stretch Supine Exercise Name hamstring stretch Side bilateral Comments discussed not perform due to colon irriation modified Latrell stretch Supine Exercise Name discontinued Comments stated not able to do due to colon irritation. bridge Supine Exercise Name bridge Reps/Minutes 8 reps Comments TA and PPT awareness, HEP review Sidelying Exercises hip abd/ ext Sidelying Exercise Name review own HEP Reps/Minutes x5 Comments core fac, TA PPT good form SL IT band stretch Sidelying Exercise Name SL IT band stretch - top leg off table Side bilateral Reps/Minutes 4 min Comments cues for neutral pelvis clamshell Sidelying Exercise Name clamshell Side bilateral Resistance AROM x5 review (later can readd )level 1 Equipment Used TB Reps/Minutes 10 reps Comments tactile cues to avoid hip rolling backward Sitting Exercises trunk flexion Sitting Exercise Name Review own HEP (good form) Reps/Minutes 10 sec x3 Comments performs on own to stretch LB and decrease pain HS stretch Sitting Exercise Name HS stretch Side bilateral Resistance q Equipment Used a Reps/Minutes dicuss but not per formed figure 4 stretch Sitting Exercise Name figure 4 stretch Side bilateral Reps/Minutes 30 Comments cues to push down on knee Standing Exercises TKE Standing Exercise Name TKE Side bilateral Resistance level 2 Equipment Used TB Reps/Minutes 15 reps resisted side stepping Standing Exercise Name resisted side stepping Side bilateral Resistance Tb #1 Reps/Minutes 10 foot Comments cues for stance leg glute facilitation to improve foot clearance resisted hip extension Standing Exercise Name resisted hip extension Side bilateral Resistance b #1 Reps/Minutes 10 reps Comments cues for posture and PPT PT-OP-T Assessment and Plan Start: 04/02/20 13:13 Freq: Status: Active Protocol: Document 06/27/20 09:00 SP (Rec: 06/27/20 11:54 SP [id number]) Physical Therapy Assessment Goals Five Impairment endurance Teaching Associate Goal (LTG) Pt will increase distance in 6MWT from 1125 feet to 1286 feet to demonstrate improved cardiovascular efficiency 06/06/20 Goal Met- pt was able to increase distance to 1364 ft, no AD LTG Duration MET Four Impairment stairs Fci Goal (LTG) Pt will descend stairs with step over step patterning and use of unilateral hand rail without increase in pain to improve her ability to care for her daughter. LTG Duration 07/23/20 Three Impairment Pt unable to walk more than a few blocks Short Term Goal (STG) Pt will walk 1/4 mile with 1- point increase in pain or less 05/21/20 - Partially met - pt walked 0.2 miles in 6MWT without increased pain 06/06/20 - partially met- after 6MWT pt c/o chest pain (SOB ) STG Duration 07/02/20 Teaching Associate Goal (LTG) Pt will walk 1 mile with 1- point increase in pain or less LTG Duration 07/23/20 Two Impairment Pt is unable to cross her legs comfortably Teaching Associate Goal (LTG) Pt will be able to cross her legs in order to don lower body garments without increase in pain 06/06/20 - progressing- pt still finds some difficulty if damp/rainy outside LTG Duration 07/23/20 One Impairment Pt has no HEP Short Term Goal (STG) Pt will be indepednent with HEP for support of therapy services provided in clinic. 05/07/20 - MET STG Duration MET Fci Goal (LTG) Pt will be independent with maintenance HEP for sustained gains. LTG Duration 07/23/20 Assessment Summary Assessment See Subjective. Tx focused on HEP review and proper form for tolerance and progression as can on own. Cued core facilitation of tolerance and how intestinal issues are that day for performance. Cued for TA facilitation and PPT awareness during LE ther ex and stretching for not eliciting LBP with good tolerance today. Provided hand outs, see chart and given to pt for reacall and proper form . Pt felt confident in HEP reviewed for home performance. Pt stated will call if PT is needed in the future but wants to work only on her HEP at this time on own. Physical Therapy Plan Frequency and Duration Frequency of Treatment 2x/Week Duration of Treatment 6 weeks Plan of Care Start Date 06/11/20 Plan of Care End Date 07/23/20 Therapeutic Interventions Therapeutic Interventions Balance Training,Gait Training ,Home Exercise Program,Joint Mobilizations,Manual Therapy, Neuromuscular Re-education, Patient/Caregiver Education, Self-Care/Home Management,Soft Tissue Mobilization, Therapeutic Activities, Therapeutic Exercises Modalities Cold Pack/Ice Massage,Hot Packs Next Visit Focus/Plan Next Note Type Treatment Note Next Visit Plan DC to home HEP. Discussed with PT and will DC patient.
--- NOTE | 2020-06-30 10:26 | PT.OPDS ---
Current Diagnoses Pain in left wrist (06/27/20) Pain in left knee (06/27/20) Low back pain (06/27/20) Other muscle spasm (06/27/20) Pain in left arm (06/27/20) Pain in left hand (06/27/20) Difficulty in walking, not elsewhere classified (06/27/20) Abnormal posture (06/27/20) Visit Care Team Role Provider Type LUCHO Lerma Attending Provider Advanced Cam Maker Primary Care Provider Referring Provider Specialty: [facility] Address: [address] [place] [address] Email: [email or web address] Visit Number Visit Number 11 Discharge Summary PT-OP-B Current Condition Start: 04/02/20 13:13 Freq: Status: Active Protocol: Document 04/02/20 13:24 AW (Rec: 04/02/20 14:21 AW [id number]) Current Condition History of Current Condition Onset Date July 2019 Current Complaints left knee pain, low back pain History of Current Condition Vanita began to notice left knee pain after she and her daughter moved from [facility]. They live in an apartment complex where Vanita lives upstairs (18 steps with wide bilateral rails) and her daughter lives downstairs. 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 The daughter has hired caregiver assist ~4 hours daily in the morning. Vanita is now up and down the stairs several times per day and notes increased left medial knee pain as well as low back pain. Going down the stairs is more provocative than going up. Prior to her daughter's stroke, Vanita was walking several miles per day for exercise. She is now deconditioned to the point where she has a hard limit of a couple of blocks due to feeling out of shape and now due to pain in her knee and back. She denies history of falls, stating she has not fallen at all in the past two years. She does report symptoms of positional vertigo but is not currently being treated for that. 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 Prior Treatments and Tests Thyroid lobectomy at . No prior PT for knee or back. I've been so busy taking care of my daughter. Future Testing and Treatments Planned None identified Prior Functional Status Baseline Function- ADL's Independent Baseline Function- Mobility Independent Baseline Function- Gait Pt able to walk longer than a few blocks. 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 Difficulty navigating stairs, especially going down which she must do to care for her daughter. PT-OP-C Subjective Start: 04/02/20 13:13 Freq: Status: Active Protocol: Document 06/27/20 09:00 SP (Rec: 06/27/20 11:54 SP [id number]) OP-PT Subjective Patient Comments Patient Comments Pt stated that is able to put shoes/socks on better, compliant with HEP given, helpful, commented the only thing that hasn't changed is her stamina but doesn't know if that will change. She stated is challenged with early am appts scheduled, knows can reschedule to later in the day knowing hx of intestinal issues has and may need to cancel that day depending on how feeling when wakes but doesn't want that added stress. Pt also stated is over whelmed with having many other appts lately and caring for her daughter and still recovering from recent fall with slow healing wound on R moya. Pt is requesting cancel rest of PT appts at this time and feels the need to see PT in the future will get a new referral come back. PT-OP-E Functional Tests Start: 04/02/20 13:13 Freq: Status: Active Protocol: Document 06/06/20 11:48 MA (Rec: 06/06/20 11:51 MA [id number]) Functional Tests 6 Minute Walk Test Distance 1364 Device Used none Comments pt able to increase distance from 1125 ft with mild c/o of SOB & calf pain PT-OP-F Manual Assessment Start: 04/02/20 13:13 Freq: Status: Active Protocol: Document 04/02/20 13:24 AW (Rec: 04/03/20 17:14 AW [id number]) Manual Assessments Soft Tissue Assessment Soft Tissue Mobility Assessment - increased density of upper gluteal region bilaterally Joint Mobility Assessment Joint Mobility Assessment - decreased A/P glides at all lumbar levels PT-OP-G Mobility & Gait Start: 04/02/20 13:13 Freq: Status: Active Protocol: Document 04/02/20 13:24 AW (Rec: 04/03/20 17:14 AW [id number]) OP Mobility Evaluation Bed Mobility Rolling IND Supine to and from Sit IND Transfers Sit to Stand IND Bed to Chair Transfers IND Functional Movements Squats pt is able to perform half squat with valgus knee posture OP Gait Assessment Gait Gait Assistance Required: Independent Distance (Feet) 200 Assistive Devices Assistive Device None Gait Deviations General Gait Pattern Decreased Feet Clearance, Flexed Trunk,Narrow Based Gait Comments Gait Comments Pt walks with increased pronation right foot and right hip externally rotated greater than left PT-OP-H Neuro Start: 04/02/20 13:13 Freq: Status: Active Protocol: Document 04/02/20 13:24 AW (Rec: 04/03/20 17:14 AW [id number]) Sensation Evaluation Gross Sensation Gross Sensation WNL Deep Tendon Reflex & Clonus Assessment Deep Tendon Reflex Bilateral Achilles Deep Tendon Reflex 1+ Diminished Bilateral Patellar Deep Tendon Reflex 1+ Diminished PT-OP-K Range of Motion Start: 04/02/20 13:13 Freq: Status: Active Protocol: Document 04/02/20 13:24 AW (Rec: 04/03/20 17:14 AW [id number]) Lumbar Spine Range of Motion Lumbar Spine Active Degrees Comments WNL all planes Hip Goniometric Range of Motion Hip Left Active Hip ROM WFL No Hip ROM Limitations Comments AROM WNL all planes with exception of limited IR. PROM and overpressure all normal with limitation of IR. Knee Goniometric Range of Motion Knee ROM Limitations Comments WNL PT-OP-L Special Tests Start: 04/02/20 13:13 Freq: Status: Active Protocol: Document 04/02/20 13:24 AW (Rec: 04/06/20 16:59 AW [id number]) Special Tests Hip Special Tests Trendelenberg Test Results positive bilaterally Scour Test Test Results negative bilaterally Knee Special Tests ligaments Test Results stable A/P and medial/lateral PT-OP-M Strength Start: 04/02/20 13:13 Freq: Status: Active Protocol: Document 08/05/20 13:24 AW (Rec: 04/03/20 17:14 AW [id number]) Hip Strength Hip Manual Muscle Testing Left Flexion (L2) 4+ Good+ Extension (S1) 4 Good Abduction 4 Good Adduction 4 Good External Rotation 4 Good Internal Rotation 4- Good- Comments Strength equal on left and right Knee Strength Knee Manual Muscle Testing Left Flexion (S2) 4 Good Extension (L3) 4 Good Comments Strength equal on left and right Ankle/Foot Strength Ankle and Foot Manual Muscle Testing Left Dorsiflexion (L4) 4 Good Plantarflexion (S1) 4- Good- Inversion 4 Good Eversion (S1) 4 Good Comments Equal bilaterally PT-OP-T Assessment and Plan Start: 04/02/20 13:13 Freq: Status: Active Protocol: Document 06/30/20 10:22 AMB (Rec: 06/30/20 10:25 AMB [id number]) Physical Therapy Assessment Goals Five Impairment endurance Tool Repair Technician Goal (LTG) Pt will increase distance in 6MWT from 1125 feet to 1286 feet to demonstrate improved cardiovascular efficiency 06/06/20 Goal Met- pt was able to increase distance to 1364 ft, no AD LTG Duration MET Four Impairment stairs Usp Goal (LTG) Pt will descend stairs with step over step patterning and use of unilateral hand rail without increase in pain to improve her ability to care for her daughter. LTG Duration NOT MET Three Impairment Pt unable to walk more than a few blocks Short Term Goal (STG) Pt will walk 1/4 mile with 1- point increase in pain or less 05/21/20 - Partially met - pt walked 0.2 miles in 6MWT without increased pain 06/06/20 - partially met- after 6MWT pt c/o chest pain (SOB ) STG Duration 07/02/20 Tool Repair Technician Goal (LTG) Pt will walk 1 mile with 1- point increase in pain or less LTG Duration NOT MET Two Impairment Pt is unable to cross her legs comfortably Usp Goal (LTG) Pt will be able to cross her legs in order to don lower body garments without increase in pain 06/06/20 - progressing- pt still finds some difficulty if damp/rainy outside LTG Duration 07/23/20 One Impairment Pt has no HEP Short Term Goal (STG) Pt will be indepednent with HEP for support of therapy services provided in clinic. 05/07/20 - MET STG Duration MET Tool Repair Technician Goal (LTG) Pt will be independent with maintenance HEP for sustained gains. LTG Duration MET Assessment Summary Assessment Overall Vanita feels that she has improved with physical therapy, although she continues to note poor stamina and endurance. She did just recently have a fall. Overall she has met some of her goals , but not all due to continued pain with stairs. She feels she is ready to discharge and work on her exercises independently and was provided with handouts to do so. Physical Therapy Plan Discharge Physical Therapy Discharge Reasons Patient Request Discharge Comments See assessment, pt requesting d/c due to feeling overwhelmed with medical appointments and caring for her daughter, feels ready to be d/veronika to HEP. Next Visit Focus/Plan Next Note Type Treatment Note Next Visit Plan d/c
== END 2020-07-07 15:22 ==
LOC: PHYS 09:00
PROVIDERS: PCP Nurse Practitioner; Referring Provider Nurse Practitioner; Visit Provider Nurse Practitioner
DX: M62.838 Other muscle spasm (principal); M54.5 Low back pain; M79.642 Pain in left hand; M79.602 Pain in left arm; M25.532 Pain in left wrist; M25.562 Pain in left knee; R29.3 Abnormal posture; R26.2 Difficulty in walking, not elsewhere classified
CPT/HCPCS: 97110; 97112; 97140; 97161; 97535

== ENCOUNTER → 2020-08-15 07:07 | Outpatient (CLI) | payer MEDICARE, MEDICAID, SELFPAY ==
[2020-01-09 16:59] VITALS: BMI 25.9
[2020-08-15 08:40] LABS: Alanine Aminotransferase 62 IU/L (<35); Albumin 4.5 g/dL (3.5-5.0); Albumin Globulin Ratio 1.4 (1.0-2.8); Alkaline Phosphatase 94 U/L (38-126); Aspartate Aminotransferase 61 IU/L (14-36); BUN Creatinine Ratio 16.2 (6-22); Bilirubin Total 0.4 mg/dL (0.2-1.3); Blood Urea Nitrogen 11 mg/dL (7-17); Calcium 9.4 mg/dL (8.4-10.2); Carbon Dioxide 32 mmol/L (22-32); Chloride 96 mmol/L (98-107); Cholesterol 178 mg/dL (140-199); Estimated Glomerular Filt Rate > 60.0 mL/min (>60); Globulin 3.3 g/dL (1.7-4.1); Glucose 137 mg/dL (80-110); HDL Cholesterol 32 mg/dL (40-60); HEMOLYSIS < 15 (0-50); LDL Cholesterol Calculated 110 mg/dL (<100); Potassium 4.9 mmol/L (3.4-5.1); Sodium 133 mmol/L (137-145); Total Protein 7.8 g/dL (6.3-8.2); Triglycerides 179 mg/dL (35-150)
[2020-08-15 09:07] LABS: Thyroid Stimulating Hormone 3.67 uIU/mL (0.47-4.68)
[2020-08-15 14:57] LABS: Creatinine Urine Random 92.1 mg/dL
[2020-08-15 15:02] LABS: Microalbumi Creatinin Ratio Ur 7.6 ug/mg CR (<30); Microalbumin Urine Random 0.7 mg/dL (0-1.6)
[2020-08-15 16:02] LABS: Hemoglobin A1C% w Est Avg Glu 7.1 % (4.0-6.0)
== END ==
PROVIDERS: PCP Nurse Practitioner; Referring Provider Nurse Practitioner; Visit Provider Nurse Practitioner
DX: E03.9 Hypothyroidism, unspecified (principal); R73.01 Impaired fasting glucose; E78.5 Hyperlipidemia, unspecified; F41.9 Anxiety disorder, unspecified; I10 Essential (primary) hypertension; Z79.899 Other long term (current) drug therapy
CPT/HCPCS: 36415; 80053; 80061; 82043; 82570; 83036; 84443

== ENCOUNTER → 2020-08-27 09:19 | Outpatient (CLI) | payer MEDICARE, MEDICAID, SELFPAY ==
[2020-01-09 16:59] VITALS: BMI 25.9
[2020-08-27 09:50] LABS: COVID19 -Nasal RAPID Negative (Negative)
== END ==
PROVIDERS: PCP Nurse Practitioner; Visit Provider Nurse Practitioner
DX: J31.0 Chronic rhinitis (principal); R05 Cough; R06.7 Sneezing; Z20.828 Contact with and (suspected) exposure to other viral communicable diseases; R09.81 Nasal congestion; R50.9 Fever, unspecified
CPT/HCPCS: 87635

== ENCOUNTER → 2020-11-17 07:38 | Outpatient (CLI) | payer MEDICARE, MEDICAID, SELFPAY ==
[2020-01-09 16:59] VITALS: BMI 25.9
[2020-11-17 08:28] LABS: Hemoglobin A1C% w Est Avg Glu 6.2 % (4.0-6.0)
[2020-11-17 08:30] LABS: Glucose 141 mg/dL (80-110)
== END ==
PROVIDERS: PCP Nurse Practitioner; Referring Provider Nurse Practitioner; Visit Provider Nurse Practitioner
DX: E11.9 Type 2 diabetes mellitus without complications (principal)
CPT/HCPCS: 36415; 82947; 83036

== ENCOUNTER → 2021-01-28 07:38 | Outpatient (CLI) | payer MEDICARE, MEDICAID, SELFPAY ==
[2020-01-09 16:59] VITALS: BMI 25.9
[2021-01-28 08:33] LABS: Hemoglobin A1C% w Est Avg Glu 6.2 % (4.0-6.0)
[2021-01-28 08:49] LABS: Glucose 137 mg/dL (80-110)
[2021-01-28 09:22] LABS: Thyroid Stimulating Hormone 3.41 uIU/mL (0.47-4.68)
== END ==
PROVIDERS: PCP Nurse Practitioner; Referring Provider Nurse Practitioner; Visit Provider Nurse Practitioner
DX: E11.9 Type 2 diabetes mellitus without complications (principal); E03.9 Hypothyroidism, unspecified; Z79.899 Other long term (current) drug therapy
CPT/HCPCS: 36415; 82947; 83036; 84443

== ENCOUNTER → 2021-04-29 07:27 | Outpatient (CLI) | payer MEDICARE, MEDICAID, SELFPAY ==
[2020-01-09 16:59] VITALS: BMI 25.9
[2021-04-29 08:39] LABS: Hemoglobin A1C% w Est Avg Glu 5.9 % (4.0-6.0)
[2021-04-29 08:47] LABS: Alanine Aminotransferase 33 IU/L (<35); Albumin 4.5 g/dL (3.5-5.0); Albumin Globulin Ratio 1.6 (1.0-2.8); Alkaline Phosphatase 82 U/L (38-126); Aspartate Aminotransferase 35 IU/L (14-36); BUN Creatinine Ratio 23.5 (6-22); Bilirubin Total 0.3 mg/dL (0.2-1.3); Blood Urea Nitrogen 20 mg/dL (7-17); Calcium 9.4 mg/dL (8.4-10.2); Carbon Dioxide 29 mmol/L (22-32); Chloride 96 mmol/L (98-107); Cholesterol 179 mg/dL (140-199); Estimated Glomerular Filt Rate > 60.0 mL/min (>60); Globulin 2.8 g/dL (1.7-4.1); Glucose 134 mg/dL (80-110); HDL Cholesterol 37 mg/dL (40-60); HEMOLYSIS < 15 (0-50); LDL Cholesterol Calculated 78 mg/dL (<100); Potassium 4.8 mmol/L (3.4-5.1); Sodium 135 mmol/L (137-145); Total Protein 7.3 g/dL (6.3-8.2); Triglycerides 318 mg/dL (35-150)
[2021-04-29 09:15] LABS: Thyroid Stimulating Hormone 3.52 uIU/mL (0.47-4.68)
[2021-04-29 15:00] LABS: Microalbumin Urine Random < 0.6 mg/dL (0-1.6)
== END ==
PROVIDERS: PCP Nurse Practitioner; Referring Provider Nurse Practitioner; Visit Provider Nurse Practitioner
DX: E11.9 Type 2 diabetes mellitus without complications (principal); E78.5 Hyperlipidemia, unspecified; E78.2 Mixed hyperlipidemia; E03.9 Hypothyroidism, unspecified; F41.9 Anxiety disorder, unspecified; I10 Essential (primary) hypertension
CPT/HCPCS: 36415; 80053; 80061; 82043; 82570; 83036; 84443

== ENCOUNTER → 2021-05-06 09:52 | Outpatient (CLI) | payer MEDICARE, MEDICAID, SELFPAY ==
[2020-01-09 16:59] VITALS: BMI 25.9
--- NOTE | 2021-05-06 09:54 | DI.RAD.S_ITS ---
PROCEDURE: XR LUMBAR SPINE MIN 4V INDICATIONS: s/p fall TECHNIQUE: 5 views of the lumbar spine were acquired, including bilateral oblique views.>> COMPARISON: None. FINDINGS: Bones: 5 nonrib-bearing vertebrae are present. There is mild to moderate levoscoliosis centered at L3 level. Degenerative endplate changes and bilateral facet arthrosis throughout lumbar spine is seen more prominent at L2-3 through L4-5 levels.. No vertebral body compression fractures. No suspicious bony lesions. Soft tissues: Overlying bowel gas pattern is normal. No suspicious soft tissue calcifications. Oblique images: No pars defects. Right worse than left bilateral bony foraminal stenosis at L4-5 level is seen. IMPRESSION: Degenerative disc disease throughout lumbar spine with mild to moderate levoscoliosis centered at L3 level. No acute compression fracture or spondylolisthesis. No gross pars defects. Bilateral bony foraminal stenosis at L4-5 level worse on the right side. Dictated by: Amarjit Ling M.D. on 05/06/2021 at 11:41 Approved by: Amarjit Ling M.D. on 05/06/2021 at 11:43
== END ==
PROVIDERS: PCP Nurse Practitioner; Referring Provider Nurse Practitioner; Visit Provider Nurse Practitioner
DX: M54.5 Low back pain (principal); M51.36 Other intervertebral disc degeneration, lumbar region; M41.86 Other forms of scoliosis, lumbar region; M48.061 Spinal stenosis, lumbar region without neurogenic claudication; M47.816 Spondylosis without myelopathy or radiculopathy, lumbar region
CPT/HCPCS: 72110

== ENCOUNTER → 2021-07-22 07:00 | Outpatient (CLI) | payer MEDICARE, MEDICAID, SELFPAY ==
[2020-01-09 16:59] VITALS: BMI 25.9
[2021-07-22 08:24] LABS: Hemoglobin A1C% w Est Avg Glu 6.3 % (4.0-6.0)
[2021-07-22 08:44] LABS: Alanine Aminotransferase 42 IU/L (<35); Albumin 4.7 g/dL (3.5-5.0); Albumin Globulin Ratio 1.7 (1.0-2.8); Alkaline Phosphatase 66 U/L (38-126); Aspartate Aminotransferase 40 IU/L (14-36); BUN Creatinine Ratio 22.4 (6-22); Bilirubin Total 0.5 mg/dL (0.2-1.3); Blood Urea Nitrogen 17 mg/dL (7-17); Calcium 9.6 mg/dL (8.4-10.2); Carbon Dioxide 32 mmol/L (22-32); Chloride 95 mmol/L (98-107); Cholesterol 175 mg/dL (140-199); Estimated Glomerular Filt Rate > 60.0 mL/min (>60); Globulin 2.7 g/dL (1.7-4.1); Glucose 115 mg/dL (80-110); HDL Cholesterol 35 mg/dL (40-60); HEMOLYSIS < 15 (0-50); LDL Cholesterol Calculated 95 mg/dL (<100); Potassium 4.8 mmol/L (3.4-5.1); Sodium 137 mmol/L (137-145); Total Protein 7.4 g/dL (6.3-8.2); Triglycerides 226 mg/dL (35-150)
== END ==
PROVIDERS: PCP Nurse Practitioner; Referring Provider Nurse Practitioner; Visit Provider Nurse Practitioner
DX: E11.9 Type 2 diabetes mellitus without complications (principal); I10 Essential (primary) hypertension; E78.2 Mixed hyperlipidemia; Z79.899 Other long term (current) drug therapy
CPT/HCPCS: 36415; 80053; 80061; 83036

== ENCOUNTER → 2021-09-22 11:51 | Outpatient (CLI) | payer MEDICARE, MEDICAID, SELFPAY ==
[2020-01-09 16:59] VITALS: BMI 25.9
--- NOTE | 2021-09-22 11:52 | DI.US.S_ITS ---
PROCEDURE: US CAROTID DOPPLER BI INDICATIONS: KNOWN CAROTID ARTERY STENOSIS. TECHNIQUE: Color and pulse Doppler interrogation was performed of both carotid systems, with image documentation and velocity measurements. COMPARISON: None. FINDINGS: Stenosis calculations are based on SRU (Society of Radiologists in Ultrasound) criteria. Right side: Brachial blood pressure: 140/82 mm Hg. Common carotid artery peak systolic velocity: 102 cm/sec. Internal carotid artery peak systolic velocity: 112 cm/sec. Internal carotid artery end diastolic velocity: 28 cm/sec. External carotid artery peak systolic velocity: 89 cm/sec. ICA/CCA peak systolic ratio: 1.1 . Smith scale imaging description: Mild atherosclerotic plaque Percent internal carotid artery stenosis: Mild . Vertebral artery: Flow direction is antegrade. Left side: Brachial blood pressure: 158/77 mm Hg. Common carotid artery peak systolic velocity: 101 cm/sec. Internal carotid artery peak systolic velocity: 124 cm/sec. Internal carotid artery end diastolic velocity: 30 cm/sec. External carotid artery peak systolic velocity: 66 cm/sec. ICA/CCA peak systolic ratio: 1.2 . Smith scale imaging description: Mild Percent internal carotid artery stenosis: Mild . Vertebral artery: Flow direction is antegrade. IMPRESSION: Left proximal ICA velocity suggests atherosclerotic stenosis approaching 50%. Consider CT angiogram correlation Approved by: Conner Cassidy M.D. on 09/22/2021 at 13:57
== END ==
PROVIDERS: PCP Nurse Practitioner; Referring Provider Nurse Practitioner; Visit Provider Nurse Practitioner
DX: I65.23 Occlusion and stenosis of bilateral carotid arteries (principal)
CPT/HCPCS: 93880

== ENCOUNTER → 2021-10-02 09:12 | Outpatient (CLI) | payer MEDICARE, MEDICAID, SELFPAY ==
[2020-01-09 16:59] VITALS: BMI 25.9
[2021-10-02 09:49] LABS: Alanine Aminotransferase 38 IU/L (<35); Albumin 4.7 g/dL (3.5-5.0); Albumin Globulin Ratio 1.6 (1.0-2.8); Alkaline Phosphatase 74 U/L (38-126); Aspartate Aminotransferase 40 IU/L (14-36); BUN Creatinine Ratio 20.3 (6-22); Bilirubin Total 0.4 mg/dL (0.2-1.3); Blood Urea Nitrogen 16 mg/dL (7-17); Calcium 9.4 mg/dL (8.4-10.2); Carbon Dioxide 31 mmol/L (22-32); Chloride 99 mmol/L (98-107); Cholesterol 182 mg/dL (140-199); Estimated Glomerular Filt Rate > 60.0 mL/min (>60); Glucose 123 mg/dL (80-110); HDL Cholesterol 36 mg/dL (40-60); HEMOLYSIS < 15 (0-50); LDL Cholesterol Calculated 95 mg/dL (<100); Potassium 4.8 mmol/L (3.4-5.1); Sodium 136 mmol/L (137-145); Total Protein 7.7 g/dL (6.3-8.2); Triglycerides 257 mg/dL (35-150)
[2021-10-02 10:15] LABS: Hemoglobin A1C% w Est Avg Glu 6.4 % (4.0-6.0)
--- NOTE | 2021-10-02 10:29 | DI.CT.S_ITS ---
PROCEDURE: CT ANGIO NECK INDICATIONS: Carotid Artery Stenosis near 50% left TECHNIQUE: After the administration of intravenous contrast, 1.5 mm axial sections acquired from the aortic arch to the [place] of [place]. Maximum intensity projection (MIP) reformats were then performed. COMPARISON: [facility], , CAROTID DOPPLER BI, 09/22/2021, 12:09. FINDINGS: Image quality: Excellent. Carotid system: The great vessels demonstrate a conventional anatomy as they arise from the aortic arch. The origins of the common carotid arteries appear patent. The common carotid arteries demonstrate normal calibers and courses. The bifurcation regions appear normal bilaterally. Calcified and noncalcified atherosclerotic plaque in both proximal internal carotid arteries results in 60% stenosis on the left and 30% stenosis on the right utilizing NASCET criteria. Atherosclerotic calcification in the cavernous segments of both distal ICA results in moderate bilateral stenosis. Posterior circulation: The origins of the vertebral arteries appear patent. Mild stenosis noted at the origin the left vertebral artery. The more superior portions of the vertebral arteries demonstrate normal course and caliber. They join to form a normal appearing basilar artery. Soft tissues: Visualized neck soft tissues demonstrate no suspicious abnormalities. Thyroid gland unremarkable. Incidental bilateral intra-ocular lens replacements noted. Bones: No suspicious bony lesions. Visualized cervical spine appears normally aligned. Multilevel degenerative disc disease and arthropathy in the cervical spine results in straightening of the normal cervical lordosis and grade 1 anterior spondylolisthesis at C4-5. IMPRESSION: 1. Atherosclerotic plaque results in 60% left and 30% right proximal ICA stenosis utilizing NASCET criteria. 2. Mild left vertebral artery origin stenosis. Any quantitative stenosis measurements were performed using the NASCET criteria. Approved by: Conner Cassidy M.D. on 10/02/2021 at 12:17
== END ==
PROVIDERS: PCP Nurse Practitioner; Referring Provider Nurse Practitioner; Visit Provider Nurse Practitioner
DX: I65.23 Occlusion and stenosis of bilateral carotid arteries (principal); E11.9 Type 2 diabetes mellitus without complications; E03.9 Hypothyroidism, unspecified; E78.2 Mixed hyperlipidemia; I10 Essential (primary) hypertension
CPT/HCPCS: 36415; 70498; 80053; 80061; 83036; 84443

== ENCOUNTER → 2021-10-29 08:18 | Outpatient (CLI) | payer MEDICARE, MEDICAID, SELFPAY ==
[2020-01-09 16:59] VITALS: BMI 25.9
[2021-10-29 09:09] LABS: Add Manual Diff / Slide Review NO; Basophils Absolute Auto 100 /uL (0-100); Eosinophils Absolute Auto 200 /uL (0-450); Eosinophils Percent Auto 3.5 % (2-4); Hematocrit 37.6 % (36-46); Hemoglobin 11.9 g/dL (12.0-16.0); Lymphocytes Absolute Auto 1200 /uL (1100-4500); Lymphocytes Percent Auto 20.5 % (25-40); Mean Corpuscular HGB Conc 31.8 % (30-36); Mean Corpuscular Hemoglobin 23.4 PG (26-34); Mean Corpuscular Volume 73.5 fL (80-100); Monocytes Absolute Auto 400 /uL (0-900); Monocytes Percent Auto 6.4 % (3-14); Neutrophils Absolute Auto 4000 /uL (1500-7000); Neutrophils Percent Auto 68.6 % (50-75); Platelet Count 233 X10^3/uL (150-400); Red Blood Cell Count 5.12 X10^6/uL (4.0-5.2); Red Cell Distribution Width 15.6 % (11.6-14.8); White Blood Cell Count 5.9 X10^3/uL (4.5-11.0)
[2021-10-29 09:27] LABS: C-Reactive Protein Quant 0.9 mg/dL (<1.0); Erythrocyte Sedimentation Rate 7 MM/HR (0-20)
[2021-10-29 10:45] LABS: Creatinine Urine Random 81.3 mg/dL
[2021-10-29 10:50] LABS: Microalbumi Creatinin Ratio Ur 12.3 ug/mg CR (<30)
== END ==
PROVIDERS: PCP Nurse Practitioner; Referring Provider Nurse Practitioner; Visit Provider Nurse Practitioner
DX: R53.82 Chronic fatigue, unspecified (principal); E03.9 Hypothyroidism, unspecified; E11.9 Type 2 diabetes mellitus without complications; E78.2 Mixed hyperlipidemia; I10 Essential (primary) hypertension
CPT/HCPCS: 36415; 82043; 82570; 85025; 85651; 86140

== ENCOUNTER → 2022-02-01 11:27 | Outpatient (CLI) | payer MEDICARE, MEDICAID, SELFPAY ==
[2020-01-09 16:59] VITALS: BMI 25.9
== END ==
PROVIDERS: PCP Nurse Practitioner; Visit Provider Nurse Practitioner Family
DX: N89.8 Other specified noninflammatory disorders of vagina (principal); R30.0 Dysuria
CPT/HCPCS: 87077; 87086; 87210

== ENCOUNTER → 2022-02-06 08:18 | Outpatient (CLI) | payer MEDICARE, MEDICAID, SELFPAY ==
[2020-01-09 16:59] VITALS: BMI 25.9
[2022-02-06 09:30] LABS: Hemoglobin A1C% w Est Avg Glu 7.1 % (4.0-6.0)
[2022-02-06 09:45] LABS: Alanine Aminotransferase 43 IU/L (<35); Albumin 4.8 g/dL (3.5-5.0); Albumin Globulin Ratio 1.6 (1.0-2.8); Alkaline Phosphatase 80 U/L (38-126); Aspartate Aminotransferase 42 IU/L (14-36); Bilirubin Total 0.4 mg/dL (0.2-1.3); Blood Urea Nitrogen 15 mg/dL (7-17); Calcium 9.2 mg/dL (8.4-10.2); Carbon Dioxide 29 mmol/L (22-32); Chloride 99 mmol/L (98-107); Cholesterol 178 mg/dL (140-199); Estimated Glomerular Filt Rate > 60 mL/min (>60); Glucose 141 mg/dL (80-110); HDL Cholesterol 36 mg/dL (40-60); HEMOLYSIS < 15 (0-50); LDL Cholesterol Calculated 96 mg/dL (<100); Potassium 5.1 mmol/L (3.4-5.1); Sodium 135 mmol/L (137-145); Total Protein 7.8 g/dL (6.3-8.2); Triglycerides 228 mg/dL (35-150)
[2022-02-06 10:00] LABS: Free T3, Triiodothyronine Free 2.56 pg/mL (2.77-5.27); Free T4, Direct Thyroxine 1.08 ng/dL (0.78-2.19)
== END ==
PROVIDERS: PCP Nurse Practitioner; Referring Provider Nurse Practitioner; Visit Provider Nurse Practitioner
DX: E11.9 Type 2 diabetes mellitus without complications (principal); E03.9 Hypothyroidism, unspecified; D64.9 Anemia, unspecified; E78.2 Mixed hyperlipidemia; F41.9 Anxiety disorder, unspecified; I10 Essential (primary) hypertension; R53.82 Chronic fatigue, unspecified
CPT/HCPCS: 36415; 80053; 80061; 83036; 84439; 84443; 84481

== ENCOUNTER → 2022-02-09 10:18 | Outpatient (CLI) | payer MEDICARE, MEDICAID, SELFPAY ==
[2020-01-09 16:59] VITALS: BMI 25.9
== END ==
LOC: LAB 10:19 → RESP 10:23
PROVIDERS: PCP Nurse Practitioner; Referring Provider Nurse Practitioner; Visit Provider Nurse Practitioner
DX: R06.02 Shortness of breath (principal); I10 Essential (primary) hypertension
CPT/HCPCS: 93005; 93010

== ENCOUNTER → 2022-02-17 08:35 | Outpatient (CLI) | payer MEDICARE, MEDICAID, SELFPAY ==
[2020-01-09 16:59] VITALS: BMI 25.9
--- NOTE | 2022-02-17 08:35 | DI.MRI.S_ITS ---
PROCEDURE: MR LUMBAR SPINE WO CON INDICATIONS: left axial LBP, scoliosis TECHNIQUE: Noncontrast sagittal T1 spin echo and T2 fast echo, sagittal STIR, and T2 fast spin echo through the lumbar spine. In cases with scoliosis, additional coronal T2 fast spin echo may be performed. COMPARISON: None. FINDINGS: Image quality: Excellent. Alignment and Curvature: There is normal bony alignment. Convex left thoracolumbar scoliosis present. Bone Marrow: Chronic degenerative disc disease noted particularly at L2-3 and L3-4. Spinal Cord: Conus medullaris terminates at the L1 level. Visualized cord demonstrates normal signal and size. Paraspinous Soft Tissues: No paravertebral masses. Incidental right renal cyst noted T12-L1: Normal appearance. L1-L2: Disc height is preserved. Circumferential disc bulge noted without central or foraminal stenosis. L2-L3: Disc space narrowing with circumferential disc bulge with hypertrophic facet joints result in moderate central stenosis. Moderate to severe right and mild left foraminal stenosis present. L3-L4: Disc space narrowing with circumferential disc bulge and hypertrophic facet joints results in severe central stenosis. There is severe right and moderate left foraminal stenosis present. L4-L5: Disc space narrowing with circumferential disc bulge and hypertrophic facet joints combined with ligamentum flavum laxity to result in severe central stenosis. Moderate right and severe left foraminal stenosis present. L5-S1: Disc space narrowing with circumferential disc bulge and hypertrophic facet joints results in mild central stenosis. Moderate right and left foraminal stenosis present. IMPRESSION: Multilevel degenerative disc disease and arthropathy results in varying degrees of central and foraminal stenosis including severe central and foraminal stenosis at L3-4 and L4-5 Thoracolumbar levoscoliosis Approved by: Conner Cassidy M.D. on 02/17/2022 at 9:56
== END ==
PROVIDERS: PCP Nurse Practitioner; Referring Provider Physical Medicine & Rehabilitation; Visit Provider Physical Medicine & Rehabilitation
DX: M47.816 Spondylosis without myelopathy or radiculopathy, lumbar region (principal); M41.20 Other idiopathic scoliosis, site unspecified; M51.36 Other intervertebral disc degeneration, lumbar region; M48.061 Spinal stenosis, lumbar region without neurogenic claudication
CPT/HCPCS: 72148

== ENCOUNTER → 2022-02-18 14:32 | Outpatient (CLI) | payer MEDICARE, MEDICAID, SELFPAY ==
[2020-01-09 16:59] VITALS: BMI 25.9
--- NOTE | 2022-03-05 16:34 | P.HOLT.S_ITS ---
Software Configuration Specialist Report Referral & Results Date Patient Seen: 02/18/22 Requesting provider: Bren Mari Indication: Shortness of breath Duration of monitoring (days): 7 Diary information: There were 4 patient triggered events and 4 patient diary entries to review Patient diary entries were associated with sinus rhythm only Patient triggered events were associated with sinus rhythm and PACs Data: Minimum heart rate identified was 50 beats per minute at 05:32 on 02/23/2022 Maximum heart rate was 90 beats per minute at 11:11 on 02/22/2022 Less than 1% of identified beats were ventricular or supraventricular ectopic in origin, which would classify them as rare. There were no pauses of 3 seconds or longer episodes of atrial fibrillation or SVT identified on this study Patient was not excessively bradycardic or tachycardic during this monitoring. 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
== END ==
PROVIDERS: PCP Nurse Practitioner; Referring Provider Nurse Practitioner; Visit Provider Nurse Practitioner
DX: R06.02 Shortness of breath (principal); Z86.79 Personal history of other diseases of the circulatory system
CPT/HCPCS: 93242; 93248

== ENCOUNTER → 2022-03-08 07:28 | Outpatient (CLI) | payer MEDICARE, MEDICAID, SELFPAY ==
[2020-01-09 16:59] VITALS: BMI 25.9
[2022-03-08 08:17] LABS: COVID19 -Nasal RAPID Negative (Negative)
--- NOTE | 2022-03-08 09:22 | PM.TREADMILL ---
Cardiac Stress Test Report Referral & Results Date Patient Seen: 03/08/22 Time Patient Seen: 09:00 Requesting provider: Bren Mari Indication: Dyspnea Rest ECG: Normal sinus rhythm Procedure Note: After both written and verbal informed consent the patient had an IV started by the diagnostic imaging RN, and then was hooked up to the treadmill monitoring system. The Lexiscan material, and then the Cardiolite tracer, were administered sequentially. An additional 3 min was spent monitoring the patient while supine on the gurney. The patient had a normal response to all infused materials. No EKG changes during the test. Impression: Successful Anna protocol. Perfusion imaging pending. Please note: Actual ECG tracings can be found in the PACS system.
--- NOTE | 2022-03-09 20:53 | DI.NM.S_ITS ---
DATE OF SERVICE: 03/08/2022 PROCEDURE PERFORMED: Pharmacological perfusion study. INDICATION: Shortness of breath with underlying hypertension and hyperlipidemia. RADIOPHARMACEUTICAL: 25.6 millicurie technetium-99m Myoview IV was injected at stress and 27 millicurie technetium-99m Myoview IV was injected at rest. CARDIAC STRESS: The patient underwent IV Lexiscan perfusion study under the supervision of an attending staff using standard Lexiscan, as per protocol. She remained hemodynamically stable. Mild symptoms during Lexiscan infusion, which got resolved. Baseline blood pressure 130/78. Heart rate 64. Baseline rhythm was sinus. During stress and recovery, nonspecific ST-T changes. Artifact seen, as well. No sustained significant arrhythmias. RAW DATA: Breast shadow was seen. GATED STUDY: Stress LV ejection fraction 78 percent without any obvious wall motion abnormalities. Resting end-diastolic volume 45 mL. Lung/heart ratio 0.36, which is within normal limits. TID ratio 1.45. It is a pharmacological perfusion study, However, visually, I do not see any significant transient ischemic dilatation. MYOCARDIAL PERFUSION SCAN: Stress supine images revealed small size, mildly decreased perfusion of distal anterior wall, which got resolved during stress prone images, suggestive of breast tissue attenuation artifact. No convincing ischemia or infarction. CONCLUSION: I will call this study likely a normal myocardial perfusion study with evidence of breast tissue attenuation artifact, which got resolved during prone images. Preserved left ventricular function. No obvious wall motion abnormalities. Visually ,no significant transient ischemic dilatation. Overall low-risk myocardial perfusion scan. Vanita Daugherty - Jw/iraj doc#: [id number]/job#: [id number] dd: 03/09/2022 17:28:00 dt: 03/09/2022 20:46:00 DICTATING MD/COPIES TO: Dexter Hinton MD COPIES MNE: KELLY;
== END ==
PROVIDERS: PCP Nurse Practitioner; Referring Provider Nurse Practitioner; Visit Provider Nurse Practitioner
DX: R06.00 Dyspnea, unspecified (principal); R06.02 Shortness of breath; I10 Essential (primary) hypertension; E78.5 Hyperlipidemia, unspecified; Z86.79 Personal history of other diseases of the circulatory system
CPT/HCPCS: 78452; 87635; 93017; A9502; J2785

== ENCOUNTER → 2022-03-15 11:22 | Outpatient (CLI) | payer MEDICARE, MEDICAID, SELFPAY ==
[2020-01-09 16:59] VITALS: BMI 25.9
[2022-03-15 12:29] LABS: COVID19 -Nasal RAPID Negative (Negative)
== END ==
PROVIDERS: PCP Nurse Practitioner; Visit Provider Physical Medicine & Rehabilitation
DX: Z20.822 Contact with and (suspected) exposure to COVID-19 (principal)
CPT/HCPCS: 87635; C9803

== ENCOUNTER 2022-03-16 07:27 | Outpatient (CLI) | payer MEDICARE, MEDICAID, SELFPAY ==
[2020-01-09 16:59] VITALS: BMI 25.9
[2022-03-16] VITALS (8 sets, daily range): BP systolic 133–184; BP diastolic 65–84; PULSE 67–73; RESP 18–23; TEMP 36.8; O2SAT 97–100
--- NOTE | 2022-03-16 07:28 | DI.RAD.S_ITS ---
PROCEDURE: PAIN L/SI FACET INJ/BLK 1STL INDICATIONS: SPONDYLOSIS COMPARISON: [facility], MR, MR LUMBAR SPINE WO CON, 02/17/2022, 8:41. FINDINGS: Fluoroscopic spot filming was performed to verify placement of spinal needles on the left at the L3, L4, L5, and S1 levels, as labeled on the films. Appropriate location of the needle tips was confirmed by injection of iodinated contrast. IMPRESSION: Intraprocedural examination demonstrating appropriate positions of the needles. Dictated by: Pernell Welsh M.D. on 03/16/2022 at 9:24 Approved by: Pernell Welsh M.D. on 03/16/2022 at 9:24
[2022-03-16] MEDS: IOPAMIDOL 15 ML VIAL 3 ML INJ (08:39)
[2022-03-16] MEDS: LIDOCAINE 1% (PF) 5 ML INJ (08:40)
[2022-03-16] MEDS: BUPIVACAINE 0.5% (PF) VIAL 5 ML INJ (08:40)
[2022-03-16] MEDS: MIDAZOLAM 2 MG/2 ML VIAL IV (08:41)
--- NOTE | 2022-03-16 08:47 | P.PCN_ITS ---
Date/Time/Diagnoses Date of procedure: 03/16/22 Time of procedure: 08:47 Pre-procedure diagnosis: 1. FACET ARTHROPATHY Post-procedure diagnosis: same Procedure Notes Procedure: 1. Left L3, L4, L5 and S1 MB BLOCKS LA Indications: Vanita is referred by LUCHO Mari for treatment of Left Axial LBP. Physician: Bunny Fuentes Total Fluoroscopy time (seconds): 6 Total sedation minutes: 11 Complications: none Procedure in detail & Post-procedure care: DESCRIPTION OF PROCEDURE Fluoroscopically guided, contrast-controlled left L3, L4, L5 and S1 medial branch blocks with 0.5cc of 0.5% Marcaine. Following review of allergy and review of potential side effects and complications, including, but not necessarily limited to, infection, allergic reaction, local tissue breakdown, nerve injury, paralysis, stroke and possible , the patient indicated that the patient understood and agreed to proceed. An informed consent document was signed by the patient, witnessed by a nurse, and placed in the patient's chart. After review of previous anaesthesic history and IV conscious sedation the patient was deemed safe to proceed with today?s procedure with IV conscious sedation as ASA class II designation. Safety time-out was performed to confirm patient ID, procedure to be performed and site of procedure. IV sedation was accomplished with a combination of 2mg of Versed was administered by the RN after DO order, titrated to patient comfort during the course of the procedure while the patient remained responsive to all verbal commands. In the prone position, following sterile prep and drape of the lumbar region, the left L3, L4, L5 and S1 anatomical location of the medial branch of the dorsal ramus was identified fluoroscopically. Subsequently an anesthetic skin wheal using 1% lidocaine solution was initiated at each of the anatomical spots. Subsequently then a 22-gauge 3.5-inch spinal needle was atraumatically introduced and advanced under fluoroscopic guidance at each of the corresponding sites at the left L3, L4, L5 and S1 MB. After negative aspiration, 0.2cc of Isovue 200 was injected, confirming placement without vascular or intrathecal uptake. Subsequently then 0.5cc of 0.5% Marcaine solution was injected at each of the corresponding sites at the left L3, L4, L5 and S1 medial branch locations. The patient tolerated the procedure well without signs or symptoms of complications. The patient tolerated the procedure well without signs or symptoms of complications prior to transfer to the recovery area continued monitoring without incident. Post-procedure, the patient was monitored initiating provocative activities to measure the amount of relief from block of the facetogenic pain. The patient reported a VAS of 7 prior to the procedure and a post-procedure VAS of 1. It has been a pleasure to assist in the diagnostic and therapeutic care of your patient. POST OP INSTRUCTIONS The patient was provided with a Pain Log to complete over the next several hours and subsequent days prior to the patient's follow up with the ordering physician. If the patient has pastry cook apprentice relief to the solution applied, then they may be a candidate for medial branch rhizotomy. The patient is aware, was provided, once again, with a Pain Log and will follow up with the referring physician for review and clinical correlation.
--- NOTE | 2022-03-16 09:11 | PC.NURSE ---
Patient to take Taxi home. She does not have assistance or anyone to check on her today. 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 Dr. Fuentes aware and ok with discharge plan. Patient met discharge criteria. Denies weakness or dizziness. Taken out via , handed off to Taxi by Valencia FINLEY.
== END 2022-03-16 09:13 | disposition home or self-care (01) ==
PROVIDERS: PCP Nurse Practitioner; Referring Provider Physical Medicine & Rehabilitation; Visit Provider Physical Medicine & Rehabilitation
DX: M47.816 Spondylosis without myelopathy or radiculopathy, lumbar region (principal); M47.817 Spondylosis without myelopathy or radiculopathy, lumbosacral region
CPT/HCPCS: 64493; 64494; 64495; 99152; J2250

== ENCOUNTER → 2022-04-09 08:16 | Outpatient (CLI) | payer MEDICARE, MEDICAID, SELFPAY ==
[2020-01-09 16:59] VITALS: BMI 25.9
[2022-04-09 09:26] LABS: Alanine Aminotransferase 30 IU/L (<35); Albumin 4.6 g/dL (3.5-5.0); Albumin Globulin Ratio 1.4 (1.0-2.8); Alkaline Phosphatase 77 U/L (38-126); Aspartate Aminotransferase 33 IU/L (14-36); Bilirubin Total 0.5 mg/dL (0.2-1.3); Blood Urea Nitrogen 14 mg/dL (7-17); Carbon Dioxide 28 mmol/L (22-32); Chloride 98 mmol/L (98-107); Estimated Glomerular Filt Rate > 60 mL/min (>60); Globulin 3.2 g/dL (1.7-4.1); Glucose 165 mg/dL (80-110); HEMOLYSIS < 15 (0-50); Potassium 4.7 mmol/L (3.4-5.1); Sodium 134 mmol/L (137-145); Total Protein 7.8 g/dL (6.3-8.2)
[2022-04-09 09:42] LABS: Hemoglobin A1C% w Est Avg Glu 6.9 % (4.0-6.0)
[2022-04-09 09:51] LABS: Thyroid Stimulating Hormone 5.58 uIU/mL (0.47-4.68)
[2022-04-09 13:09] LABS: Appearance Urine UA CLEAR; Bilirubin Urine UA NEGATIVE (NEGATIVE); Color Urine UA YELLOW; Glucose Urine UA NEGATIVE (Negative); Ketones Urine UA NEGATIVE (NEGATIVE); Leukocyte Esterase Urine UA TRACE (NEGATIVE); Nitrite Urine UA NEGATIVE (Negative); Occult Blood Urine UA NEGATIVE (Negative); Protein Urine UA NEGATIVE (Negative); Specific Gravity Urine UA 1.015 (1.000-1.035); Urobilinogen Urine UA 0.2 E.U./dL (0.2)
[2022-04-09 13:15] LABS: pH Urine UA 6.5 (4.5-8.0)
[2022-04-09 13:25] LABS: Bacteria Urine Occasional (0-1); Culture Indicated Urine Cult Not Indicated; RBC Urine None Seen (0-5/HPF); Squamous Epithelial Cell Urine 5-10 /HPF (0-5/HPF); WBC Urine 0-1/HPF (0-5/HPF)
== END ==
PROVIDERS: PCP Nurse Practitioner; Referring Provider Nurse Practitioner; Visit Provider Nurse Practitioner
DX: Z79.899 Other long term (current) drug therapy (principal); E78.2 Mixed hyperlipidemia; E03.9 Hypothyroidism, unspecified; I10 Essential (primary) hypertension; R30.0 Dysuria
CPT/HCPCS: 36415; 80053; 81001; 83036; 84443

== ENCOUNTER → 2022-05-10 11:20 | Outpatient (CLI) | payer MEDICARE, MEDICAID, SELFPAY ==
[2020-01-09 16:59] VITALS: BMI 25.9
[2022-05-10 13:56] LABS: COVID19 -Nasal RAPID Negative (Negative)
== END ==
PROVIDERS: PCP Nurse Practitioner; Referring Provider Ophthalmology; Visit Provider Ophthalmology
DX: Z20.828 Contact with and (suspected) exposure to other viral communicable diseases (principal)
CPT/HCPCS: 87635; C9803

== ENCOUNTER 2022-05-12 08:32 | Day surgery (SDC) | payer MEDICARE, MEDICAID, SELFPAY ==
[2020-01-09 16:59] VITALS: BMI 25.9
--- NOTE | 2022-05-12 06:58 | PM.PREOP ---
Pre-operative Note COVID-19 COVID-19 status: Negative Criteria for continued procedure: Expected advancement of disease process, Possibility delay results in more complex future surgery or treatment, Increased loss of function, Delay expected to result in less-positive ultimate med/surg outcome and Non-surgical alternatives not available or appropriate per current SOC Interval Note History & Physical reviewed/Exam performed by Physician: Yes Changes to H&P: No H&P completed within 30 days and has changed as indicated here:: Patient is prediabetic but does not take medication or follow her blood sugar. No fasting glucose needed for this procedure.
--- NOTE | 2022-05-12 06:59 | PM.OP.1 ---
Operative Date/Time/Diagnoses Date of procedure: 05/12/22 Time of procedure: 10:00 Procedure & Clinicians Procedure: Preoperative diagnoses: 1. 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 Pre- Diabetes without retinopathy 4. Hypertension 5. Anemia 6. Hypercholesterolemia 7. Osteoporosis 8. History of previous colon cancer 9. Total spinal nerve blockade Postoperative diagnoses: 1. Bilateral upper lid dermatochalasis treated with blepharoplasty 2. Status post ectropion repair . Procedure: Bilateral upper blepharoplasty for functional symptoms. Bilateral lower lid functional ectropion repair. Surgeon: Rozina Mari MD Complications: none Specimen: None Blood loss: Less than 3 mL Anesthesia: Local infiltration with monitored standby. Indications: Bilateral upper lids obstructing superior vision. Preoperative external photographs taken and loss of vision to within 2 mm of marginal light reflex. Functional surgery. Bilateral lower lid laxity with exposure symptoms. Patient presents with excessive irritation and tearing from exposure due to bilateral lower lid laxity . The patient has failed conservative measures including lubrication and antibiotic ointment and desires surgery to improve these symptoms. She has a punctal plug in her right lower lid for dry eye. Procedure: In the preoperative holding area the amount skin and subcutaneous tissue to be removed was marked with indelible ink. The contours were carefully checked for symmetry and planned procedure discussed with the patient. The patient was taken to the operating room. IV sedation was given. Proparacaine drops were placed in both eyes for comfort. Local infiltration of anesthetic 2.5 cc into each upper lid and lateral canthus bilaterally, consisting of 1% xylocaine with epinephrine, normal saline and 1 cc hyluronidase was placed. This was then supplemented with full strength 2% xylocaine with epinephrine, 0.5% bupivacaine, and 1 cc hyalurondase. The face was prepped in an open manner. Attention was placed to the right upper lid. Using the previous guo a number 15. Bard-Roland blade was used to incise a skin muscle flap. The flap was lifted and removed. Cautery was applied as needed. Contouring of the muscle belly was also performed. Exploration of the nasal and preoperneurotic fat pads were performed removal and contouring with hemostat and scissors as well as cautery were performed. The lid was then closed with running and interrupted 6 0 Vicryl sutures. Multiple congenital elevated benign skin lesions were removed using scissors and cauterized as needed. Attention was placed to the right lower lid. Attention was placed to the lateral canthus. A 15. Bard-Roland blade was used to make an incision for 1 cm. The periosteum was exposed. Cautery was used as needed. The inferior canthal tendon was lysed with scissors. A tarsal strip was formed with clearance of the anterior and posterior lamella and any exposed lashes. Minimal shortening was performed. The strip was then transected with 5.0 Mersilene type suture which was placed double-armed through the periosteum and tied with multiple knots at the orbital rim. The outer tarsus and lid was then closed with 6 0 interrupted sutures. The procedure was repeated on the left side in identical fashion. There was minimal bleeding. The patient returned to the recovery room in good condition. Sutures will be removed in the office in approximately 10 days. Same procedure was repeated for the left upper lid and lower lid. The Betadine was removed. Maxitrol ointment was placed to suture line. She returned to recovery room in stable condition. Instructions for postoperative cold packs were reviewed. Rozina Mari MD. Same procedure as scheduled: Yes
[2022-05-12 08:52] VITALS: BMI 26.4
[2022-05-12 08:58] VITALS: BP 150/72; PULSE 61; RESP 20; TEMP 36.7; O2SAT 98
[2022-05-12] MEDS: LACTATED RINGERS 1,000 ML 42 ML IV (09:08)
[2022-05-12] MEDS: PROPARACAINE 0.5% OPHTH SOL 2 DROPS EYE-BOTH (10:40)
[2022-05-12] MEDS: LIDOCAINE 2% W/EPI 3 ML, BUPIVACAINE 0.5% (PF) 2 ML, HYALURONIDASE 150 UNIT INJ (10:40)
[2022-05-12] MEDS: LIDOCAINE 1% W/EPI 3 ML, SODIUM CHLORIDE 0.9% 2 ML, HYALURONIDASE 150 UNIT INJ (10:45)
--- NOTE | 2022-05-12 10:56 | SUR.OPER ---
Supine on eye stretcher, head on extension cradle. Arms tucked at sides. Pillow under knees.
[2022-05-12] MEDS: NEOMYCIN/POLY/DEX OPHTH OINT 1 APPLIC EYE-BOTH (12:43)
[2022-05-12 12:47] VITALS: BP 139/70; PULSE 70; RESP 16; TEMP 36.7; O2SAT 99
--- NOTE | 2022-05-12 13:28 | SUR.PHASEII ---
Patient dressed independently. Oral intake provided.
[2022-05-12 13:54] VITALS: PULSE 74; RESP 12; TEMP 36.3; O2SAT 97
== END 2022-05-12 13:43 | disposition home or self-care (01) ==
PROVIDERS: PCP Nurse Practitioner; Referring Provider Ophthalmology; Visit Provider Ophthalmology
PROC: (CPT 67917; principal; 2022-05-12 09:45)
PROC: (CPT 67917; 2022-05-12 09:45)
DX: H02.831 Dermatochalasis of right upper eyelid (principal); H02.834 Dermatochalasis of left upper eyelid; H02.132 Senile ectropion of right lower eyelid; H02.135 Senile ectropion of left lower eyelid; R73.03 Prediabetes; I10 Essential (primary) hypertension; D64.9 Anemia, unspecified; E78.00 Pure hypercholesterolemia, unspecified
CPT/HCPCS: 67917; 15823; 00103; J2250; J3010; J3470

== ENCOUNTER → 2022-05-17 06:55 | Outpatient (CLI) | payer MEDICARE, MEDICAID, SELFPAY ==
[2020-01-09 16:59] VITALS: BMI 25.9
[2022-05-17 08:23] LABS: Thyroid Stimulating Hormone 4.16 uIU/mL (0.47-4.68)
== END ==
PROVIDERS: PCP Nurse Practitioner; Referring Provider Nurse Practitioner; Visit Provider Nurse Practitioner
DX: E03.9 Hypothyroidism, unspecified (principal)
CPT/HCPCS: 36415; 84443

== ENCOUNTER → 2022-07-30 06:46 | Outpatient (CLI) | payer MEDICARE, MEDICAID, SELFPAY ==
[2022-05-18 12:41] VITALS: BMI 25.9
[2022-07-30 08:25] LABS: Hemoglobin A1C% w Est Avg Glu 7.1 % (4.0-6.0)
[2022-07-30 08:40] LABS: Alanine Aminotransferase 33 IU/L (<35); Albumin 4.8 g/dL (3.5-5.0); Albumin Globulin Ratio 1.7 (1.0-2.8); Alkaline Phosphatase 84 U/L (38-126); Aspartate Aminotransferase 32 IU/L (14-36); BUN Creatinine Ratio 19.4 (6-22); Bilirubin Total 0.5 mg/dL (0.2-1.3); Blood Urea Nitrogen 12 mg/dL (7-17); Calcium 9.5 mg/dL (8.4-10.2); Carbon Dioxide 29 mmol/L (22-32); Chloride 94 mmol/L (98-107); Estimated Glomerular Filt Rate > 60 mL/min (>60); Globulin 2.9 g/dL (1.7-4.1); Glucose 148 mg/dL (80-110); HEMOLYSIS < 15 (0-50); Potassium 4.9 mmol/L (3.4-5.1); Sodium 136 mmol/L (137-145); Total Protein 7.7 g/dL (6.3-8.2)
[2022-07-30 09:08] LABS: Thyroid Stimulating Hormone 2.89 uIU/mL (0.47-4.68)
== END ==
PROVIDERS: PCP Nurse Practitioner; Referring Provider Nurse Practitioner; Visit Provider Nurse Practitioner
DX: E11.9 Type 2 diabetes mellitus without complications (principal); E03.9 Hypothyroidism, unspecified; Z79.899 Other long term (current) drug therapy
CPT/HCPCS: 36415; 80053; 83036; 84443

== ENCOUNTER → 2022-08-02 10:56 | Outpatient (CLI) | payer MEDICARE, MEDICAID, SELFPAY ==
[2022-05-18 12:41] VITALS: BMI 25.9
[2022-08-02 13:47] LABS: Creatinine Urine Random 83.5 mg/dL
[2022-08-02 13:51] LABS: Microalbumi Creatinin Ratio Ur 8.3 ug/mg CR (<30); Microalbumin Urine Random 0.7 mg/dL (0-1.6)
== END ==
PROVIDERS: PCP Nurse Practitioner; Referring Provider Nurse Practitioner; Visit Provider Nurse Practitioner
DX: E03.9 Hypothyroidism, unspecified (principal); E11.9 Type 2 diabetes mellitus without complications; Z79.899 Other long term (current) drug therapy
CPT/HCPCS: 82043; 82570

== ENCOUNTER → 2022-11-08 07:27 | Outpatient (CLI) | payer MEDICARE, MEDICAID, SELFPAY ==
[2022-05-18 12:41] VITALS: BMI 25.9
[2022-11-08 08:09] LABS: Add Manual Diff / Slide Review NO; Basophils Absolute Auto 100 /uL (0-100); Basophils Percent Auto 1.5 % (0-2); Eosinophils Absolute Auto 300 /uL (0-450); Eosinophils Percent Auto 4.4 % (2-4); Hematocrit 29.5 % (36-46); Lymphocytes Absolute Auto 1400 /uL (1100-4500); Lymphocytes Percent Auto 21.6 % (25-40); Mean Corpuscular HGB Conc 30.5 % (30-36); Mean Corpuscular Volume 62.4 fL (80-100); Monocytes Absolute Auto 500 /uL (0-900); Monocytes Percent Auto 8.3 % (3-14); Neutrophils Absolute Auto 4200 /uL (1500-7000); Neutrophils Percent Auto 64.2 % (50-75); Platelet Count 286 X10^3/uL (150-400); Red Blood Cell Count 4.73 X10^6/uL (4.0-5.2); Red Cell Distribution Width 18.3 % (11.6-14.8); White Blood Cell Count 6.5 X10^3/uL (4.5-11.0)
[2022-11-08 08:23] LABS: Hemoglobin A1C% w Est Avg Glu 7.4 % (4.0-6.0)
[2022-11-08 08:32] LABS: Hypochromasia 1+; Microcytosis 2+
[2022-11-08 08:35] LABS: Alanine Aminotransferase 39 IU/L (<35); Albumin 4.4 g/dL (3.5-5.0); Albumin Globulin Ratio 1.5 (1.0-2.8); Alkaline Phosphatase 97 U/L (38-126); Aspartate Aminotransferase 35 IU/L (14-36); Bilirubin Total 0.3 mg/dL (0.2-1.3); Blood Urea Nitrogen 13 mg/dL (7-17); Calcium 8.7 mg/dL (8.4-10.2); Carbon Dioxide 30 mmol/L (22-32); Chloride 96 mmol/L (98-107); Cholesterol 151 mg/dL (140-199); Estimated Glomerular Filt Rate > 60 mL/min (>60); Glucose 156 mg/dL (80-110); HDL Cholesterol 34 mg/dL (40-60); HEMOLYSIS < 15 (0-50); LDL Cholesterol Calculated 70 mg/dL (<100); Potassium 4.5 mmol/L (3.4-5.1); Sodium 135 mmol/L (137-145); Total Protein 7.4 g/dL (6.3-8.2); Triglycerides 237 mg/dL (35-150)
[2022-11-08 09:01] LABS: Thyroid Stimulating Hormone 0.659 uIU/mL (0.47-4.68)
== END ==
PROVIDERS: PCP Nurse Practitioner; Referring Provider Nurse Practitioner; Visit Provider Nurse Practitioner
DX: E03.9 Hypothyroidism, unspecified (principal); E11.9 Type 2 diabetes mellitus without complications; E78.2 Mixed hyperlipidemia; Z79.899 Other long term (current) drug therapy; R53.83 Other fatigue; I10 Essential (primary) hypertension
CPT/HCPCS: 36415; 80053; 80061; 83036; 84443; 85025

== ENCOUNTER → 2022-11-25 09:42 | Outpatient (CLI) | payer MEDICARE, MEDICAID, SELFPAY ==
[2022-05-18 12:41] VITALS: BMI 25.9
--- NOTE | 2022-11-25 10:03 | DI.DEXA.S_ITS ---
Bone Density Report Name: JANET THORNE Age: 87 Sex: Female Ethnicity: White Date of : 1935 Indication: postmenopausal; screening for osteoporosis; parental hip fracture; Referring Provider: WILLIAM FLORES Study: Bone densitometry was performed. Exam Date: November 25, 2022 Accession number: [id number] Bone Density: Region BMD T-score Z-score Classification AP Spine(L1-L4) 1.130 0.8 3.6 Normal Femoral Neck (Left) 0.620 -2.1 0.5 Osteopenia Total Hip (Left) 0.688 -2.1 0.3 Osteopenia Femoral Neck (Right) 0.594 -2.3 0.2 Osteopenia Total Hip (Right) 0.669 -2.2 0.1 Osteopenia Total Hip Mean 0.679 -2.2 0.2 Osteopenia World Health Organization criteria for BMD impression classify patients as: Normal (T-score at or above -1.0), Osteopenia (T-score between -1.0 and -2.5), or Osteoporosis (T-score at or below -2.5). 10-year Fracture Risk(1): Major Osteoporotic Fracture 32% Hip Fracture 22% Reported Risk Factors: [place] (), Neck BMD=0.594, BMI=27.6, parental fracture (1) FRAX(R) Version 3.08. Fracture probability calculated for an untreated patient. Fracture probability may be lower if the patient has received treatment. Impression: The patient has low bone mass, based on the Right Femoral Neck T-score. The patient has an estimated ten-year risk of hip fracture of 22% and an estimated ten-year risk of major fracture of 32%, based on the WHO FRAX algorithm. The patient has risk factors, including: parental hip fracture. Discussion: BONE DENSITY IS LOW AT ONE OR MORE SKELETAL SITES. THE PATIENT'S BMD AND CLINICAL RISK FACTORS CONTRIBUTE TO THIS PATIENT'S HIGH RISK OF FRACTURE. This patient's lowest T-score is low at one or more skeletal sites. It meets the World Health Organization's (WHO) criteria for ?low bone mass? (T-score between -1.0 and -2.5). The patient's 10-year risk of hip fracture and 10 year risk of a major osteoporotic fracture as calculated by FRAX exceeds the threshold where pharmacological therapy is recommended by the National Osteoporosis Foundation (NOF). However, all treatment decisions require clinical judgment and consideration of individual patient factors, including patient preferences, comorbidities, previous drug use, risk factors not captured in the FRAX model (e.g., frailty, falls, vitamin D deficiency, increased bone turnover, interval significant decline in bone density) and possible under or overestimation of fracture risk by FRAX. The patient should follow a healthful lifestyle (good nutrition with adequate calcium and vitamin D, and appropriate weight-bearing exercise). Follow-Up: Consider a repeat BMD and Vertebral Fracture Assessment (VFA) exam in 2 years or sooner if medically necessary, to reassess this patient's status. Reported by: JESUS ALBERTO SOLIS M.D. on 11/25/2022 10:14:00 AM.
== END ==
PROVIDERS: PCP Nurse Practitioner; Referring Provider Nurse Practitioner; Visit Provider Nurse Practitioner
DX: Z13.820 Encounter for screening for osteoporosis (principal); M85.851 Other specified disorders of bone density and structure, right thigh; Z78.0 Asymptomatic menopausal state; K63.9 Disease of intestine, unspecified; Z85.038 Personal history of other malignant neoplasm of large intestine; Z90.710 Acquired absence of both cervix and uterus
CPT/HCPCS: 77080

== ENCOUNTER → 2022-12-17 08:00 | Outpatient (CLI) | payer MEDICARE, MEDICAID, SELFPAY ==
[2022-05-18 12:41] VITALS: BMI 25.9
--- NOTE | 2022-12-17 08:02 | DI.US.S_ITS ---
PROCEDURE: US CAROTID DOPPLER BI INDICATIONS: Carotid Artery Stenosis TECHNIQUE: Color and pulse Doppler interrogation was performed of both carotid systems, with image documentation and velocity measurements. COMPARISON: [facility], [place], US CAROTID DOPPLER BI, 09/22/2021, 12:09. FINDINGS: Stenosis calculations are based on SRU (Society of Radiologists in Ultrasound) criteria. Right side: Brachial blood pressure: 142/76 mm Hg. Common carotid artery peak systolic velocity: 101.2 cm/sec. Internal carotid artery peak systolic velocity: 107.0 cm/sec. Internal carotid artery end diastolic velocity: 31.8 cm/sec. External carotid artery peak systolic velocity: 98.9 cm/sec. ICA/CCA peak systolic ratio: 1.1. Smith scale imaging description: Mild atheromatous plaque at the carotid bifurcation Percent internal carotid artery stenosis: Less than 50% stenosis. Vertebral artery: Flow direction is antegrade. Left side: Brachial blood pressure: 144/70 mm Hg. Common carotid artery peak systolic velocity: 146.4 cm/sec. Internal carotid artery peak systolic velocity: 110.5 cm/sec. Internal carotid artery end diastolic velocity: Or 39.9 cm/sec. External carotid artery peak systolic velocity: 75.6 cm/sec. ICA/CCA peak systolic ratio: 0.8. Smith scale imaging description: Mild atheromatous plaque is present at the carotid bifurcation. Percent internal carotid artery stenosis: Less than 50% stenosis. Vertebral artery: Flow direction is antegrade. IMPRESSION: Less than 50% stenosis of the bilateral internal carotid arteries. Dictated by: Peggy Moran M.D. on 12/17/2022 at 10:23 Approved by: Peggy Moran M.D. on 12/17/2022 at 10:25
== END ==
PROVIDERS: PCP Nurse Practitioner; Referring Provider Nurse Practitioner; Visit Provider Nurse Practitioner
DX: I10 Essential (primary) hypertension (principal); I65.23 Occlusion and stenosis of bilateral carotid arteries
CPT/HCPCS: 93005; 93010; 93880